=== PATIENT | male | born 1935 | race Caucasian/White ===

== ENCOUNTER → 2016-07-05 | Outpatient (CLI) | payer OTHER | LOC: FIMAGING 16:41 | PROVIDERS: ATTEND Family Medicine | DX: M89.8X0 Other specified disorders of bone, multiple sites (principal); M16.0 Bilateral primary osteoarthritis of hip; Z85.528 Personal history of other malignant neoplasm of kidney ==

== ENCOUNTER 2016-07-22 10:02 | Observation (INO) | payer OTHER ==
[~2016-07-22 10:02] MED LIST: NS 1,000 ML IV SCH
[2016-07-22 14:50] LABS: HEMATOCRIT 34.4 % (40.0-51.0); HEMOGLOBIN 11.3 g/dL (13.7-17.5)
[2016-07-22] MEDS ORDERED: MIDAZOLAM 2 MG/2 ML VIAL ONE (15:53)
[2016-07-22] MEDS ORDERED: fentaNYL 100 MCG/2 ML INJ ONE (15:53)
[2016-07-22 16:26] LABS: ABSOLUTE IMMATURE GRANULOCYTES 0.18 10^3/uL (0.00-0.10); ADD DIFF? NO; ADD MORPH? NO; ADD SCAN? NO; ATYPICAL LYMPHOCYTE FLAG 0 (0-99); FRAGMENT RBC FLAG 0 (0-99); HEMOGLOBIN 10.9 g/dL (13.7-17.5); LEFT SHIFT FLG 20 (0-99); LIPEMIA HEMOLYSIS FLAG 80 (0-99); MEAN CELL HEMOGLOBIN 31.1 pg (27.9-34.1); PLATELET CLUMPS FLAG 0 (0-99); PLATELET COUNT 203 10^3/uL (150-400); RED BLOOD CELL COUNT 3.51 10^6/uL (4.40-6.38); RED CELL DISTRIBUTION WIDTH 15.5 % (11.5-15.2)
[2016-07-22] MEDS ORDERED: THROMBIN (BOVINE) 5,000 UNIT VIAL TP ONE (16:30)
[2016-07-22 16:31] LABS: CREATININE 1.6 mg/dL (0.7-1.3)
--- NOTE | 2016-07-22 17:25 | GCON ---
[f rep st] CONSULTATION DATE OF CONSULTATION: 07/22/2016 REFERRING PHYSICIAN: Rae Murray MD REASON FOR EVALUATION: Postprocedural hematoma. HISTORY OF PRESENT ILLNESS: 81-year-old male with a significant history for metastatic renal cell carcinoma. He underwent a prior left nephrectomy, as well as left lower lobe wedge biopsy. He was admitted today with a suspect left lower quadrant soft tissue mass. Percutaneous core imaging was completed. His postprocedural course was complicated by a superficial arterial bleed. Attempted percutaneous transcatheter embolization was subsequently performed. Surgery has been requested for further treatment recommendations. At the present time, the patient is a completely comfortable. He reports no further pain when moving his left leg. He denies abdominal pain, nausea, or vomiting. He has not suffered from prior bleeding sequelae. PAST MEDICAL HISTORY: Metastatic renal cell carcinoma. Head and neck squamous cell carcinoma. Hypertension. Hyperlipidemia. PAST SURGICAL HISTORY: Left nephrectomy, inguinal herniorrhaphy, left lower lobe wedge biopsy. MEDICATIONS: Allopurinol, aspirin, Centrum, Claritin, lisinopril, simvastatin. ALLERGIES: Niacin and sulfa. SOCIAL HISTORY: No significant alcohol or tobacco. He is a . PHYSICAL EXAMINATION: VITAL SIGNS: Temperature 36.4, blood pressure 140/80, pulse 65, respirations 22. GENERAL: The patient is currently alert, appropriate, comfortable. HEENT: Anicteric. NECK: No cervical lymphadenopathy. HEART: Regular. LUNGS: Clear. ABDOMEN: Soft. Reducible lower midline ventral hernia without tenderness overlying a vertical laparotomy incision. Firm left lower quadrant hematoma with normal overlying skin. Minimal tenderness. EXTREMITIES: FemoStop currently in place, left leg, with normal range of motion. No exacerbation of pain with movement at present time. Otherwise unremarkable. NEUROLOGIC: Unremarkable. REVIEW OF SYSTEMS: 10-point review of systems unremarkable. LABORATORY DATA: Initial hemoglobin 11.3, subsequent hemoglobin 10.9. White count 9.2, platelets 200. Electrolytes within reference range. Creatinine 1.6. CT imaging reviewed on PACS: Left lower quadrant superficial hematoma present with a superficial blush noted. IMPRESSION: Post biopsy hematoma, left lower quadrant. RECOMMENDATIONS: Continued supportive care measure with direct compression. I suspect his bleeding will spontaneously tamponade and not require further intervention. If the patient has ongoing pain or evidence of ongoing bleeding, surgical exploration with decompression or ligation can be entertained at that time. These findings and recommendations were discussed with the patient, as well as Dr. Murray. We will continued to follow with you. /[id number]/MODL MTDD
[2016-07-22] MEDS ORDERED: ACETAMINOPHEN 325 MG TAB PO PRN (18:59)
[2016-07-22 19:50] LABS: HEMOGLOBIN 10.7 g/dL (13.7-17.5)
[2016-07-22] MEDS: NS 1,000 ML IV SCH (20:47)
[2016-07-23] MEDS: NS 1,000 ML IV SCH (02:00)
[2016-07-23 04:48] LABS: % IMMATURE GRANULYOCYTES 1.6 % (0.0-1.1); ABSOLUTE IMMATURE GRANULOCYTES 0.16 10^3/uL (0.00-0.10); ADD DIFF? NO; ADD MORPH? NO; ADD SCAN? NO; ATYPICAL LYMPHOCYTE FLAG 0 (0-99); FRAGMENT RBC FLAG 10 (0-99); HEMOGLOBIN 9.5 g/dL (13.7-17.5); LEFT SHIFT FLG 30 (0-99); LIPEMIA HEMOLYSIS FLAG 80 (0-99); MEAN CELL HEMOGLOBIN 30.9 pg (27.9-34.1); MEAN CELL HEMOGLOBIN CONCENTR. 32.8 g/dL (32.4-36.7); MEAN CELL VOLUME 94.5 fL (81.5-99.8); PLATELET CLUMPS FLAG 0 (0-99); PLATELET COUNT 175 10^3/uL (150-400); RED BLOOD CELL COUNT 3.07 10^6/uL (4.40-6.38); RED CELL DISTRIBUTION WIDTH 15.7 % (11.5-15.2)
[2016-07-23 05:16] LABS: ANION GAP 10 mEq/L (8-16); CALCIUM 8.8 mg/dL (8.5-10.4); CARBON DIOXIDE 19 mEq/l (22-31); CHLORIDE 108 mEq/L (97-110); CREATININE 1.6 mg/dL (0.7-1.3); GLOMERULAR FILTRATION RATE 42; GLUCOSE 119 mg/dL (70-100); POTASSIUM 4.8 mEq/L (3.5-5.2); SODIUM 137 mEq/L (134-144)
--- NOTE | 2016-07-23 08:20 | SOAPPROG ---
SOAP Progress Note Assessment/Plan: Assessment/Plan: Hemodynamically stable No evidence of further bleeding H/H stable RRR CTA Abd soft NT Minimal ecchymosis Distal pulses intact Fem stop released (left in spot in case of need for reapplication) 07/23/16 08:18 Objective: Vital Signs Temp Pulse Resp BP Pulse Ox 36.1 C 62 17 136/65 H 96 07/23/16 08:00 07/23/16 08:00 07/23/16 08:00 07/23/16 08:00 07/23/16 08:00 Laboratory Results 07/23/16 04:35 07/23/16 04:35 07/22/16 07/23/16 07/24/16 05:59 05:59 05:59 Intake Total 1413 Output Total 800 Balance 613 ICD10 Worksheet Patient Problems: Problems Problem Status Onset Dehydration Acute
[2016-07-23] MEDS ORDERED: GADOBUTROL 10 ML VIAL IVP ONE (09:40)
[2016-07-23 11:56] LABS: HEMATOCRIT 31.3 % (40.0-51.0); HEMOGLOBIN 10.6 g/dL (13.7-17.5)
[2016-07-23 12:24] VITALS: BP 103/56; PULSE 83; RESP 20; TEMP 97.9; O2SAT 97
[2016-07-23 12:29] LABS: CREATININE 1.7 mg/dL (0.7-1.3)
--- NOTE | 2016-07-23 13:18 | SOAPPROG ---
SOAP Progress Note Assessment/Plan: Assessment: Bleeding off of ascending lateral cutaneous femoral branch, now stopped after thrombin injection. Plan: Will keep femstop on for overnight. Anticipate D/C tomorrow 07/23/16 13:17 Subjective: Feels much better after thrombin injection. "I don't feel the pressure anymore. " Daughter at bedside. Objective: Vital Signs Temp Pulse Resp BP Pulse Ox 36.6 C 83 20 103/56 L 97 07/23/16 12:00 07/23/16 12:00 07/23/16 12:00 07/23/16 12:00 07/23/16 12:00 Laboratory Results 07/23/16 11:52 07/23/16 11:50 07/22/16 07/23/16 07/24/16 05:59 05:59 05:59 Intake Total 1413 Output Total 800 Balance 613 LT abd much softer. Femstop on. ICD10 Worksheet Patient Problems: Problems Problem Status Onset Dehydration Acute
--- NOTE | 2016-07-23 13:20 | SOAPPROG ---
SOAP Progress Note Assessment/Plan: Assessment: Bleeding off of ascending lateral cutaneous femoral branch, now stopped after thrombin injection. Plan: Will keep femstop on for overnight. Anticipate D/C tomorrow 07/23/16 13:17 07/23/16 13:19 D/C this pm. 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 Follow up with Dr. Sierra as planned. Appreciate Drs. Abdi and Steven's consult and care of this patient. Subjective: No events over night. Femstop has been off since Am. Has been OOB, to bathroom , tolerating PO. Ambulated. Objective: Vital Signs Temp Pulse Resp BP Pulse Ox 36.6 C 83 20 103/56 L 97 07/23/16 12:00 07/23/16 12:00 07/23/16 12:00 07/23/16 12:00 07/23/16 12:00 Laboratory Results 07/23/16 11:52 07/23/16 11:50 07/22/16 07/23/16 07/24/16 05:59 05:59 05:59 Intake Total 1413 Output Total 800 Balance 613 Mass stable. Hct stable. Cr stable. - Pending Discharge Pending Discharge Within 24 Hours: Yes Pending Discharge Date: 07/24/16 Pending Discharge Time: 11:00 ICD10 Worksheet Patient Problems: Problems Problem Status Onset Dehydration Acute
[2016-07-23] MEDS ORDERED: HYDROCODONE/APAP 5/325 TAB PO PRN (13:22)
[2016-07-23] MEDS ORDERED: FINASTERIDE 5 MG TAB PO SCH (18:00)
[2016-07-23] MEDS ORDERED: ALLOPURINOL 100 MG TAB PO SCH (18:00)
[2016-07-23] MEDS ORDERED: NON-FORMULARY NEW DRUG (Simvastatin [Zocor] 20 MG) PO SCH (18:00)
[2016-07-23] MEDS ORDERED: ATORVASTATIN CALCIUM 10 MG TAB PO SCH (18:00)
[2016-07-24] MEDS ORDERED: ASPIRIN EC 81 MG TAB PO SCH (09:00)
[2016-07-24] MEDS ORDERED: LISINOPRIL 5 MG TAB PO SCH (09:00)
== END 2016-07-23 14:00 | disposition home or self-care (01) ==
LOC: FIMAGING 10:02 → F3E 15:28 → F2N 16:04
PROVIDERS: ADMIT Radiology Diagnostic Radiology; ATTEND Radiology Diagnostic Radiology
PROC: 0WBH3ZX Excision of Retroperitoneum, Percutaneous Approach, Diagnostic (ICD-10-PCS; principal; 2016-07-22 13:10)
PROC: 3E03317 Introduction of Other Thrombolytic into Peripheral Vein, Percutaneous Approach (ICD-10-PCS; principal; 2016-07-22 13:10)
PROC: 04LL3ZZ Occlusion of Left Femoral Artery, Percutaneous Approach (ICD-10-PCS; principal; 2016-07-22 13:10)
DX: C79.51 Secondary malignant neoplasm of bone (principal); C78.00 Secondary malignant neoplasm of unspecified lung; K91.871 Postprocedural hematoma of a digestive system organ or structure following other procedure; T81.719A Complication of unspecified artery following a procedure, not elsewhere classified, initial encounter; I10 Essential (primary) hypertension; E78.5 Hyperlipidemia, unspecified; Z85.528 Personal history of other malignant neoplasm of kidney
CPT/HCPCS: 36002; 37243; 49180; 70553; 74174; 76936; 76942; 77012; 88161; 88307; 88341; 88342; 99152; A9585; C1769; G0378; J2250; J3010; Q9967

== ENCOUNTER → 2016-08-25 | Outpatient (CLI) | payer OTHER | LOC: FIMAGING 10:47 | PROVIDERS: ATTEND Nurse Practitioner | DX: C79.51 Secondary malignant neoplasm of bone (principal); M16.12 Unilateral primary osteoarthritis, left hip; M25.552 Pain in left hip; Z85.528 Personal history of other malignant neoplasm of kidney ==

== ENCOUNTER 2016-10-18 10:15 | Inpatient (IN) | payer OTHER ==
--- NOTE | 2016-10-18 10:44 | CPEKG ---
Heart Rate: 87 RR Interval: 690 P-R Interval: 172 QRSD Interval: 100 QT Interval: 360 QTC Interval: 433 P Gresh[place]: 38 QRS [place]: -44 T Wave [place]: 17 EKG Severity - ABNORMAL ECG - EKG Impression: SINUS RHYTHM EKG Impression: LEFT ANTERIOR FASCICULAR BLOCK EKG Impression: LVH WITH SECONDARY REPOLARIZATION ABNORMALITY Electronically Signed By: Anai Harry 18-Oct-2016 17:07:00
--- NOTE | 2016-10-18 10:46 | EDPHY ---
H & P Stated Complaint: CONCERNED ABOUT PE/PNA Source: Patient, Family, RN/MD Exam Limitations: No limitations - Personal History Current Tetanus/Diphtheria Vaccine: Yes Tetanus Vaccine Date: 2013 - Medical/Surgical History Hx Asthma: No Hx Chronic Respiratory Disease: No Hx Diabetes: No Hx Cardiac Disease: Yes Hx Renal Disease: Yes Hx Cirrhosis: No Hx Alcoholism: No Hx HIV/AIDS: No Hx Splenectomy or Spleen Trauma: No Other PMH: Gout, high cholesterol, HTN, Oral Ca with surgery 1998, leg fx 1998, hernia repair 1992, deviated septum, clear cell renal CA 2013, L nephrectomy, 2013 - Social History Smoking Status: Former smoker HPI/ROS: CHIEF COMPLAINT: Left-sided chest and back pain HISTORY OF PRESENT ILLNESS: Patient complains of left-sided chest and back pain that started abruptly last night. Moderate to severe pain. No position of comfort. Worse with inspiration, palpation movement. No fever or chills. Occasional cough. No nausea or vomiting. No diarrhea. No constipation. History of metastatic renal carcinoma with involvement of the left lung, bowel. Patient was at his oncologist's office today and there is concern for the possibility of pneumonia or PE. Thus he was sent our facility. I did discuss this with his oncologist. REVIEW OF SYSTEMS: Ten systems reviewed and are negative unless otherwise noted in the HPI PAST MEDICAL HISTORY: As reviewed. Pertinent include renal cell carcinoma with metastases, left nephrectomy SOCIAL HISTORY: Nonsmoker. Lives here in [place] FAMILY HISTORY: Noncontributory EXAMINATION General Appearance: Alert, no distress Head: normocephalic, atraumatic Eyes: Pupils equal and round, no conjunctival pallor or injection ENT, Mouth: Mucous membranes moist Neck: Normal inspection, supple, non-tender Respiratory: Lungs are clear to auscultation. No wheeze, rhonchi or crackles Cardiovascular: Regular rate and rhythm. No murmur Gastrointestinal: Abdomen is soft and nontender Back: non-tender, no bony abnormalities Neurological: A&O, nonfocal, normal gait Skin: Warm and dry, no rash Extremities: Nontender, no pedal edema Psychiatric: Mood and affect normal DIFFERENTIAL DIAGNOSES: Including but not limited to pneumonia, PE, pleurisy, costochondritis, pericarditis, pneumonitis, enteritis, colitis, pancreatitis MDM: 10:25 a.m. Left lower chest pain that is pleuritic. This is on the costal margin. No abdominal complaints at this time. Complicating factors include metastatic renal carcinoma with involvement of the lung. He also has a solitary kidney due to nephrectomy. Vital signs are stable. Chest x-ray is pending. Laboratory studies have been ordered. EKG pending. He is in no acute distress 11:00 a.m. Laboratories thus far are negative for any acute abnormalities. He remains awake and alert. Still does have left-sided chest pain. 11:45 a.m. Laboratory studies are within normal limits for the patient. Negative troponin. Chest x-ray does not reveal any pneumonia. He does not have any fever or cough or evidence of infection. I have re-evaluated the patient. I discussed the case with Dr. Gibson, and the patient will be admitted to the hospital to Dr. Horn. He is admitted in stable condition SUPERVISION: Patient was evaluated in conjunction with the supervising physician. Please see their note for details. (Christofer Blake) Constitutional: Initial Vital Signs Temperature (C) 37.0 C 10/18/16 10:23 Heart Rate 104 H 10/18/16 10:23 Respiratory Rate 16 10/18/16 10:23 Blood Pressure 136/81 H 10/18/16 10:23 O2 Sat (%) 94 10/18/16 10:23 O2 Delivery Mode Room Air Allergies/Adverse Reactions: niacin [Niacin] Allergy (Intermediate, Verified 07/22/16 10:35) Rash NSAIDS (Non-Steroidal Anti-Inflamma Allergy (Intermediate, Verified 07/22/16 10: 35) Rash Sulfa (Sulfonamide Antibiotics) Allergy (Intermediate, Verified 07/22/16 10:35) Rash Home Medications: Medication Instructions Recorded Allopurinol [Allopurinol 100 MG 100 mg PO BID@07/22/16 (*)] Ascorbic Acid [Vitamin C 500 mg 500 mg PO DAILY@1200 07/22/16 (*)] Aspirin EC [Aspirin EC 81 mg (*)] 81 mg PO DAILY 07/22/16 Finasteride [Proscar 5 MG (*)] 5 mg PO HS 07/22/16 Fluticasone Nasal [Flonase Nasal 1 sprays NASAL BID PRN 07/22/16 [place]] Herbals/Supplements -Info Only 1 ea PO DAILY 07/22/16 Loratadine [Claritin 10 mg] 10 mg PO DAILY@1200 07/22/16 Multivitamins [Multivitamin (*)] 1 each PO DAILY 07/22/16 Cholecalciferol Vit D3 [Vitamin D3 2,000 units PO DAILY 10/18/16 2000 units tab (OTC)] Lisinopril [Zestril 10 mg (*)] 10 mg PO DAILY 10/18/16 Hydrocodone/Acetaminophen [[place]et[place] 0.5 - 1 each PO Q4 PRN #40 tablet 10/20/16 5/325 (*)] Lidocaine 5% [Lidoderm 5% Patch 1 ea TD DAILY #30 patch 10/20/16 (*)] Patch Removal 1 ea TD DAILY21 patch 10/20/16 Polyethylene Glycol 3350 [Miralax 17 gm PO DAILY #30 dose 10/20/16 17 gm (*)] Sennosides/Docusate Sodium 1 - 2 tab PO BID #60 tab 10/20/16 [Senokot-S] Medical Decision Making - Diagnostics EKG Interpretation: 12 lead EKG is interpreted in Trace master View by emergency department physician. (Anai Harry) ED Course/Re-evaluation: The patient was evaluated and managed by the physician nursing home assistant. I discussed the care of this patient while the patient was in the emergency department. I reviewed imaging studies and blood work. I read the EKG. I have reviewed this chart and I agree with the findings and plan of care as documented, as indicated by my signature. I am the secondary supervising physician. This patient presents with rapid heart rate and shortness of breath. He has a history of renal cell carcinoma and was found to have an elevated D-dimer in the emergency department. Because of his acute on chronic kidney disease, CT angiogram of the chest not advised. He is being scheduled for admission and ventilation perfusion scan. He is at high risk for pulmonary embolus. (Anai Harry) - Data Points Laboratory Results: Laboratory Results 10/19/16 04:18 10/19/16 04:18 Medications Given: Acetaminophen (Tylenol) 650 mg PO Q6 PRN PRN Reason: Pain, Mild/Fever, Can Take PO Stop: 04/16/17 13:46 Last Admin: 10/18/16 14:44 Dose: 650 mg Hydrocodone Bitart/Acetaminophen ([place] 5/325) 1 tab PO Q4 PRN PRN Reason: Pain, Breakthrough Stop: 10/28/16 13:46 Last Admin: 10/20/16 10:24 Dose: 1 tab Allopurinol (Allopurinol) 100 mg PO BID@12,21 [facility] Stop: 04/16/17 20:59 Last Admin: 10/19/16 19:51 Dose: 100 mg Amlodipine Besylate (Norvasc) 2.5 mg PO DAILY [facility] Stop: 04/16/17 13:59 Last Admin: 10/20/16 10:10 Dose: 2.5 mg Ascorbic Acid (Vitamin C) 500 mg PO DAILY@1200 [facility] Stop: 04/17/17 11:59 Last Admin: 10/19/16 12:14 Dose: 500 mg Aspirin Buffered (Aspirin Ec) 81 mg PO DAILY [facility] Stop: 04/17/17 08:59 Last Admin: 10/20/16 10:10 Dose: 81 mg Cetirizine HCl (Zyrtec) 10 mg PO DAILY@1200 [facility] Stop: 04/17/17 11:59 Last Admin: 10/19/16 12:14 Dose: 10 mg Cholecalciferol (Vitamin D) 2,000 units PO DAILY [facility] Stop: 04/17/17 08:59 Last Admin: 10/20/16 10:08 Dose: 2,000 units Enoxaparin Sodium (Lovenox) 40 mg SC DAILY [facility] Stop: 04/17/17 08:59 Last Admin: 10/20/16 10:17 Dose: 40 mg Finasteride (Proscar) 5 mg PO HS [facility] Stop: 04/16/17 20:59 Last Admin: 10/19/16 19:51 Dose: 5 mg Sodium Chloride (Ns) 1,000 mls @ 100 mls/hr IV CONT [facility] Stop: 04/17/17 08:29 Last Admin: 10/20/16 04:53 Dose: 1,000 mls Lactulose (Cephulac) 20 gm PO TID PRN; Protocol PRN Reason: Constipation Stop: 04/16/17 13:47 Last Admin: 10/19/16 12:47 Dose: 20 gm Lidocaine/Diphenhydramine/Alumin/Mg (Maalox/Diphenhydramine/Lido) 5 ml PO PRN PRN PRN Reason: Mucositis, Mouth Pain Stop: 04/17/17 15:19 Last Admin: 10/20/16 09:09 Dose: 5 ml Lisinopril (Zestril) 10 mg PO DAILY [facility] Stop: 04/17/17 08:59 Last Admin: 10/20/16 10:09 Dose: 10 mg Multivitamins (Tab-A-Juancarlos) 1 each PO DAILY [facility] Stop: 04/17/17 08:59 Last Admin: 10/20/16 10:08 Dose: 1 each Polyethylene Glycol (Miralax) 17 gm PO DAILY PRN; Protocol PRN Reason: Constipation, patient prefers Stop: 04/16/17 13:47 Last Admin: 10/18/16 17:22 Dose: 17 gm Senna/Docusate Sodium (Senokot-S) 1 - 2 tab PO BID LISA PRN Reason: Protocol Stop: 04/16/17 20:59 Last Admin: 10/20/16 10:07 Dose: 2 tab Discontinued Medications Bisacodyl (Bisacodyl) 5 mg PO ONCE ONE Stop: 10/19/16 08:27 Last Admin: 10/19/16 08:50 Dose: 5 mg Potassium Chloride/Dextrose/Sod Cl (D5w 1/2 Ns W/ 20 Kcl/L) 1,000 mls @ 75 mls/ hr IV CONT LISA Stop: 04/16/17 13:59 Last Admin: 10/18/16 14:25 Dose: 1,000 mls Magnesium Citrate (Magnesium Citrate) 300 ml PO ONCE ONE Stop: 10/19/16 08:26 Last Admin: 10/19/16 08:49 Dose: Not Given Polyethylene Glycol (Miralax) 17 gm PO ONCE ONE Stop: 10/19/16 08:27 Last Admin: 10/19/16 08:50 Dose: 17 gm Departure - Departure Disposition: [facility] Inpatient Acute Clinical Impression: Chest pain Qualifiers: Chest pain type: unspecified Qualified Code(s): R07.9 - Chest pain, unspecified Renal cell carcinoma Qualifiers: Laterality: left Qualified Code(s): C64.2 - Malignant neoplasm of left kidney, except renal pelvis Condition: Good
[2016-10-18 10:56] LABS: % IMMATURE GRANULYOCYTES 1.8 % (0.0-1.1); ABSOLUTE IMMATURE GRANULOCYTES 0.16 10^3/uL (0.00-0.10); ABSOLUTE NRBC COUNT 0.04 10^3/uL (0-0.01); ADD DIFF? NO; ADD MORPH? YES; ADD SCAN? NO; ATYPICAL LYMPHOCYTE FLAG 0 (0-99); FRAGMENT RBC FLAG 10 (0-99); HEMATOCRIT 35.5 % (40.0-51.0); HEMOGLOBIN 11.9 g/dL (13.7-17.5); LEFT SHIFT FLG 30 (0-99); LIPEMIA HEMOLYSIS FLAG 80 (0-99); MEAN CELL HEMOGLOBIN 34.5 pg (27.9-34.1); MEAN CELL HEMOGLOBIN CONCENTR. 33.5 g/dL (32.4-36.7); MEAN CELL VOLUME 102.9 fL (81.5-99.8); MEAN PLATELET VOLUME 11.2 fL (8.7-11.7); NRBC-AUTO% 0.4 % (0.0-0.2); PLATELET CLUMPS FLAG 10 (0-99); PLATELET COUNT 193 10^3/uL (150-400); RED BLOOD CELL COUNT 3.45 10^6/uL (4.40-6.38)
[2016-10-18 10:57] LABS: RED CELL DISTRIBUTION WIDTH 20.9 % (11.5-15.2)
[2016-10-18 11:03] LABS: INR 1.04 (0.83-1.16); PROTIME(PATIENT) 13.5 SEC (12.0-15.0)
[2016-10-18 11:04] LABS: APTT 31.7 SEC (23.0-38.0)
[2016-10-18 11:05] LABS: ANION GAP 15 mEq/L (8-16); CALCIUM 10.3 mg/dL (8.5-10.4); CARBON DIOXIDE 25 mEq/l (22-31); CHLORIDE 97 mEq/L (97-110); CREATININE 1.3 mg/dL (0.7-1.3); GLOMERULAR FILTRATION RATE 53; GLUCOSE 112 mg/dL (70-100); POTASSIUM 4.3 mEq/L (3.5-5.2); SODIUM 137 mEq/L (134-144)
[2016-10-18 11:17] LABS: TROPONIN I 0.021 ng/mL (0-0.034)
[2016-10-18 11:27] LABS: ELLIPTOCYTES 1+; MACROCYTES 1+; PLATELET ESTIMATE ADEQUATE (ADEQ); POLYCHROMASIA 1+
[2016-10-18] MEDS ORDERED: ONDANSETRON 4 MG/2 ML VIAL IVP PRN (13:47)
[2016-10-18] MEDS ORDERED: ACETAMINOPHEN 325 MG TAB PO PRN (13:47)
[2016-10-18] MEDS ORDERED: FLUTICASONE NASAL 120 SPRAYS/16 GM MDI EACHNARE PRN (13:47)
[2016-10-18] MEDS ORDERED: PROMETHAZINE HCL 25 MG/ML INJ IVP PRN (13:47)
[2016-10-18] MEDS ORDERED: BISACODYL 10 MG SUPP PR PRN (13:48)
[2016-10-18] MEDS ORDERED: MAGNESIUM HYDROXIDE 30 ML UDCUP PO PRN (13:48)
[2016-10-18] MEDS ORDERED: LACTULOSE 20 GM/30 ML UDCUP PO PRN (13:48)
[2016-10-18] MEDS ORDERED: POLYETHYLENE GLYCOL 3350 17 GM PKT PO PRN (13:48)
[2016-10-18] MEDS ORDERED: D5W 1/2 NS W/ 20 KCl/L 1,000 ML IV SCH (14:00)
--- NOTE | 2016-10-18 14:41 | GHP ---
[f rep st] HISTORY AND PHYSICAL DATE OF ADMISSION: 10/18/2016 CHIEF COMPLAINT: Abdominal pain. HISTORY OF PRESENT ILLNESS: This is an 81-year-old male currently undergoing treatment for renal ce ll carcinoma with metastases to lung and right ilium, who was referred to the emergency department f [facility] due to concerns for a pulmonary embolism. The patient states he has been constipated the past few days. His last small bowel movement was 2 d ays ago. He did, however, have a small, loose stool today. He has not been passing gas. Last nigh t, he described an 8/10 sharp pain in his left abdomen. The pains were worse with movement or with lying on his side. He is not passing gas. He denies any pleuritic chest pain or chest pain. He de nies any shortness of breath. His appetite has been poor. PAST MEDICAL HISTORY: Renal cell carcinoma diagnosed in 2013 with mets to his lung and ilium. Left nephrectomy in 2013. Partial lung resection in 2014. Squamous cell carcinoma of the mouth. Hyper tension. Seasonal allergies. HOME MEDICATIONS: Reviewed, refer to [employer] for details. ALLERGIES: Niacin, NSAIDs and sulfa. SOCIAL HISTORY: Former smoker. He denies any alcohol or illicit drug use. FAMILY HISTORY: Reviewed and noncontributory. REVIEW OF SYSTEMS: Comprehensive 10-point review of systems was done and is negative, except for as mentioned in the HPI. PHYSICAL EXAM: VITAL SIGNS: Blood pressure 164/104, pulse 103, respiratory rate 18, O2 saturation 93% on room air. Temperature afebrile. GENERAL: No acute distress. HEAD: Normocephalic, atrauma tic. EYES: PERRLA. Sclerae anicteric. MOUTH: Moist mucous membranes. NECK: Supple. No lympha denopathy. CARDIOVASCULAR: S1, S2. No JVD. No lower extremity edema. PULMONARY: Lungs are mary r. No wheezes, rales, or rhonchi. Normal respiratory effort. ABDOMEN: Soft. There is some tende rness to deep palpation in the left upper quadrant without guarding or rebound tenderness. Bowel so unds are diminished. EXTREMITIES: No clubbing or cyanosis. NEURO: Cranial nerves 2-12 grossly in tact. No focal motor or sensory deficits. SKIN: Clear. No rashes. DIAGNOSTICS: WBC is 8.9, hemoglobin 11.9, hematocrit 35.5, platelets 193. INR was 1.04. Sodium 137 , potassium 4.3, chloride 97, CO2 25, BUN 28, creatinine 1.3, glucose 112. Troponin was negative at 0.021. Chest x-ray, which I visualized and personally interpreted, shows bilateral lower lobe scarring with no obvious pneumonia. EKG, which I visualized and personally interpreted, shows sinus rhythm, rate 87 beats per minute, high voltages consistent with LVH. ASSESSMENT AND PLAN: This is an 81-year-old male with history of metastatic renal cell carcinoma, u ndergoing treatment, presenting with: 1. Abdominal pain. It is worse with movement and associated with constipation and lack of flatus. Differential diagnosis: The patient was sent over out of concerns for pulmonary embolism, which I t hink is in the differential but is less likely the cause of his symptoms. For now, we will order a D-dimer. If the D-dimer is positive and his pain persists, we will consider V/Q scan in the morning or possibly CTA; however, the patient is fairly reluctant given his history of 1 functioning kidney . PLAN: We will monitor for signs of hypoxemia or circulatory collapse. We will start empiric treatm ent for pulmonary embolism, if this occurs. For now, we will order a KUB to evaluate for obstructio n. We will also trial an enema to see if this helps with his abdominal pain. 1. History of hypertension that appears to be poorly controlled, given his elevated blood pressure right now, as well as left ventricular hypertrophy on EKG. PLAN: We will continue home dose of lisinopril and add 2.5 mg of Norvasc starting now. 1. History of renal cell carcinoma. PLAN: We will consult Oncology so they know their patient is in the hospital. 1. Elevated BUN. Possibly due to dehydration. PLAN: Start maintenance IV fluids and monitor with repeat metabolic panel in the morning. CODE STATUS: The patient requests to be full code status. /[id number]/MODL
[2016-10-18 16:24] LABS: COLOR YELLOW; LEUKOCYTE ESTERASE,URINE NEGATIVE (NEGATIVE); NITRITE,URINE NEGATIVE (NEGATIVE)
[2016-10-18 16:25] LABS: MUCUS TRACE /lpf (NONE-1+)
[2016-10-18] MEDS: ALLOPURINOL 100 MG TAB PO SCH (19:59)
[2016-10-18] MEDS: FINASTERIDE 5 MG TAB PO SCH (19:59)
[2016-10-18] MEDS: SENNOSIDES/DOCUSATE SODIUM TAB PO SCH (19:59)
[2016-10-19 04:57] LABS: % IMMATURE GRANULYOCYTES 1.1 % (0.0-1.1); ABSOLUTE IMMATURE GRANULOCYTES 0.06 10^3/uL (0.00-0.10); ABSOLUTE NRBC COUNT 0.02 10^3/uL (0-0.01); ADD DIFF? NO; ADD MORPH? YES; ADD SCAN? NO; ATYPICAL LYMPHOCYTE FLAG 0 (0-99); FRAGMENT RBC FLAG 20 (0-99); HEMATOCRIT 29.6 % (40.0-51.0); LEFT SHIFT FLG 20 (0-99); LIPEMIA HEMOLYSIS FLAG 90 (0-99); MEAN CELL HEMOGLOBIN 34.2 pg (27.9-34.1); MEAN CELL HEMOGLOBIN CONCENTR. 33.8 g/dL (32.4-36.7); MEAN CELL VOLUME 101.4 fL (81.5-99.8); MEAN PLATELET VOLUME 11.2 fL (8.7-11.7); NRBC-AUTO% 0.4 % (0.0-0.2); PLATELET CLUMPS FLAG 0 (0-99); PLATELET COUNT 127 10^3/uL (150-400); RED BLOOD CELL COUNT 2.92 10^6/uL (4.40-6.38)
[2016-10-19 05:03] LABS: RED CELL DISTRIBUTION WIDTH 20.9 % (11.5-15.2)
[2016-10-19 05:04] LABS: ANION GAP 10 mEq/L (8-16); CARBON DIOXIDE 21 mEq/l (22-31); CHLORIDE 102 mEq/L (97-110); CREATININE 1.1 mg/dL (0.7-1.3); GLOMERULAR FILTRATION RATE > 60; GLUCOSE 92 mg/dL (70-100); POTASSIUM 4.2 mEq/L (3.5-5.2); SODIUM 133 mEq/L (134-144)
[2016-10-19 05:40] LABS: PLATELET ESTIMATE DECREASED (ADEQ)
[2016-10-19 05:41] LABS: ELLIPTOCYTES 1+; MACROCYTES 1+; MICROCYTES 1+; POLYCHROMASIA 1+
[2016-10-19] MEDS ORDERED: MAGNESIUM CITRATE 300 ML BOTTLE PO ONE (08:25)
[2016-10-19] MEDS ORDERED: BISACODYL 5 MG EC TAB PO PRN (08:26)
[2016-10-19] MEDS ORDERED: BISACODYL 5 MG EC TAB PO ONE (08:26)
[2016-10-19] MEDS ORDERED: POLYETHYLENE GLYCOL 3350 17 GM PKT PO ONE (08:26)
[2016-10-19] MEDS: NS 1,000 ML IV SCH ×2 (08:50→17:43)
[2016-10-19] MEDS ORDERED: Herbals/Supplements -Info Only PO SCH (09:00)
[2016-10-19] MEDS: ASPIRIN EC 81 MG TAB PO SCH (09:58)
[2016-10-19] MEDS: MULTIVITAMINS 1 EACH TAB PO SCH (09:58)
[2016-10-19] MEDS: SENNOSIDES/DOCUSATE SODIUM TAB PO SCH ×2 (09:59→21:09)
[2016-10-19] MEDS: ENOXAPARIN 40 MG/0.4 ML SYR SC SCH (09:59)
[2016-10-19] MEDS: CHOLECALCIFEROL VIT D3 2,000 UNITS TAB/CAP PO SCH (09:59)
[2016-10-19] MEDS: LISINOPRIL 10 MG TAB PO SCH (10:00)
[2016-10-19] MEDS ORDERED: NON-FORMULARY NEW DRUG (Loratadine [Claritin 10 Mg] 10 MG) PO SCH (12:00)
[2016-10-19] MEDS: CETIRIZINE 10 MG TAB PO SCH (12:14)
[2016-10-19] MEDS: ASCORBIC ACID 500 MG TAB PO SCH (12:14)
[2016-10-19] MEDS: ALLOPURINOL 100 MG TAB PO SCH ×2 (12:15→19:51)
--- NOTE | 2016-10-19 13:46 | GCON ---
[f rep st] CONSULTATION INITIAL VISIT. PRIMARY ONCOLOGIST: Dr. Toño Sierra. REASON FOR REQUEST: Metastatic renal cell carcinoma. HISTORY OF PRESENT ILLNESS: Mr. 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 I believe it locally recurred in March 2014, which was resected and then received adjuvant radiation, which was complicated with osteonecrosis of the maxilla and xerostomia. He was initially diagnosed as stage I renal cell carcinoma in June 2013, treated with nephrectomy. He developed a 1.2 cm left lower lobe pulmonary recurrence which was resected, and then earlier this year he developed a new left ilium bone metastasis. In approximately July he was started on pazopanib, but he has had difficulty tolerating the drug requiring multiple dose reductions. Dr. Sierra has decided to stop pazopanib because he is not tolerating it and switch him to nivolumab, which he has not started yet. He was in the office yesterday for followup and was having pain in the left side , lower chest upper abdomen region. He was having some dyspnea with exertion and feeling tachycardic. He denied any shortness of breath at rest nor any acute lower extremity swelling. Along with that he has just had generalized fatigue and not feeling well. He has been a little bit more lethargic and actually needed to take pain medications, which he hardly ever does. He has also had a lot of problems with constipation recently. He is a little more comfortable now, not having any significant pain at rest. He received an enema last night. That helped with some of the gas pain but not much stool. He is now taking some oral cathartics to help move his bowels. ALLERGIES: NSAIDs, niacin and sulfa. HOME MEDICATIONS: Include vitamin D, allopurinol, [place], herbal supplements, fluticasone, finasteride, aspirin, ascorbic acid, multivitamins, loratadine and lisinopril. PAST MEDICAL HISTORY: 1. Chronic illnesses include renal cell carcinoma as described in the HPI. 2. Floor mouth cancer as described in HPI. 3. Hypertension. 4. Seasonal allergies. PAST SURGICAL HISTORY: 1. Left nephrectomy. 2. Metastatic lung lesion removal. 3. Head and neck cancer surgery. SOCIAL HISTORY: He is a former smoker. Denies alcohol use. Is retired. FAMILY HISTORY: Noncontributory. REVIEW OF SYSTEMS: A 10-point review of systems performed, pertinent positives as per HPI, otherwise negative. PHYSICAL EXAM: VITAL SIGNS: Temperature is 36.4, pulse is 86, blood pressure 112/77. GENERAL: He is an elderly man in good spirits, in no distress. His daughter is in the room with him. HEENT: Shows some missing teeth, but otherwise unremarkable. LUNGS: Appear clear today. CARDIAC: Regular. ABDOMEN: Soft. There is tenderness right over the left lower ribs but none in the left upper quadrant. EXTREMITIES: No edema. NEUROLOGIC: Grossly intact. LAB DATA: Mildly anemic at 10 g/dL, platelet count 127,000, white count is unremarkable. D-dimer is elevated at 1.12. Chemistries, creatinine was up 1.3 yesterday, 1.1 today. UA was unremarkable. Chest x-ray showed some bilateral lower lobe parenchymal scarring, but otherwise stable. EKG showed left anterior fascicular block. Abdominal x-ray showed constipation. V/Q scan performed this morning showed some segmental perfusion defect in the superior segments of the lower lobes bilaterally particularly in the left lower lobe. IMPRESSION: 1. Acute left upper abdomen/left lower chest pain. 2. Metastatic renal cell carcinoma. A little unclear if he had a blood clot. It does sound like the ventilation scan shows segmental perfusion defects. He is definitely a patient who would be at risk with metastatic renal cell carcinoma and his age. If this is felt to be significant then recommend treating him with either Xarelto or apixaban as standard. If unclear, may want to consider getting a CT angiogram. If this is not significant then would make sure that he is adequately moving his bowels and he can go home. Continue Vicodin as needed for pain. Most of the tenderness seemed to be right over the ribs. Arrangements have already been made to switch his therapy to outpatient. We will follow along with you while in the hospital. /[id number]/MODL MTDD
[2016-10-19] MEDS ORDERED: IOPAMIDOL (ISOVUE 370) 100 ML BTL IV ONE (15:16)
[2016-10-19] MEDS ORDERED: MBX SOLN 30 ML BOTTLE PO PRN (15:20)
--- NOTE | 2016-10-19 16:22 | HOSPPROG ---
Hospitalist Progress Note Assessment/Plan: Assessment: 81-year-old male presents with suspected acute pulmonary embolism in the setting of acute kidney injury on chronic kidney disease, renal cell carcinoma Plan: 1. Suspected pulmonary embolism. Acute, new from this provider, further workup indicated. Patient with exertional dyspnea and tachycardia, high risk for pulmonary embolism with underlying renal cell carcinoma, elevated D-dimer, V/Q scan demonstrating perfusion defects in the superior bilateral lower lobes, left greater than right -getting CT angiogram now given abnormal V/Q -continue IV fluids 2. Acute kidney injury on chronic kidney disease stage III. Patient has solitary kidney, acute kidney injury secondary to mild hypovolemia in the setting of cancer treatment -patient has been receiving IV fluids since presentation, creatinine level improving -discussed with Dr. Osvaldo Rogers, he agrees that IV fluids should be continued on this patient given his risk of contrast induced nephropathy in the setting of solitary kidney, continue IV fluids after CT angiogram and repeat serum creatinine level in a.m., as well as an outpatient in 3 days 3. Renal cell carcinoma. Under the care of Dr. Sierra, patient receiving oncology consultation while in the hospital, appreciated -metastatic, will evaluate chest involvement with CT scan 4. Constipation. Acute worsening, resulting in significant abdominal discomfort , which was his presenting symptom, has yet to respond to oral laxatives and suppository -give additional dose of bisacodyl and MiraLax now, if no effect, will use GoLYTELY this afternoon Diet. Regular Prophylaxis. High risk patient, Lovenox 40 Code. Full Disposition. Upgraded to inpatient admission status, anticipated length stay greater than 2 midnights for reasonable medical necessity including suspected pulmonary embolism require further workup as well as ongoing IV fluids before and after testing to mitigate risk of worsening acute kidney injury in patient with chronic kidney disease stage 3, solitary kidney and renal cell carcinoma. Subjective: Counseled the patient extensively regarding risk of systemic anticoagulation, risk of pulmonary embolism, treatment strategy for constipation Objective: Vital Signs Temp Pulse Resp BP Pulse Ox 36.7 C 86 19 123/77 H 95 10/19/16 15:49 10/19/16 15:49 10/19/16 15:49 10/19/16 15:49 10/19/16 15:49 Laboratory Results 10/19/16 04:18 10/19/16 04:18 10/18/16 10/19/16 10/20/16 05:59 05:59 05:59 Intake Total 1000 250 Output Total 1025 Balance -25 250 PT 13.5 SEC (12.0-15.0) 10/18/16 10:35 INR 1.04 (0.83-1.16) 10/18/16 10:35 - Time Spent With Patient Time Spent with Patient: greater than 35 minutes Time Spent with Patient: Greater than 35 minutes spent on this patients care, greater than 50% of time spent counseling, educating, and coordinating care regarding the above mentioned plan. - Physical Exam Constitutional: no apparent distress, chronically ill appearing, uncomfortable ( Abdominal discomfort) Cardiovascular: regular rate and rhythym, no murmur, rub, or gallop, No edema Respiratory: no respiratory distress, no rales or rhonchi, clear to auscultation Gastrointestinal: normoactive bowel sounds, tenderness (To moderate depth palpation), distension (Mild) Neurologic: AAOx3, sensation intact bilaterally Psychiatric: interacting appropriately, not anxious, not encephalopathic, thought process linear ICD10 Worksheet Patient Problems: Problems Problem Status Onset Dehydration Acute Chest pain Acute Renal cell carcinoma Acute
[2016-10-19] MEDS: FINASTERIDE 5 MG TAB PO SCH (19:51)
[2016-10-20] MEDS: NS 1,000 ML IV SCH (04:53)
[2016-10-20 05:32] LABS: INR 1.16 (0.83-1.16); PROTIME(PATIENT) 14.8 SEC (12.0-15.0)
[2016-10-20 05:40] LABS: ANION GAP 9 mEq/L (8-16); CALCIUM 8.1 mg/dL (8.5-10.4); CARBON DIOXIDE 20 mEq/l (22-31); CHLORIDE 103 mEq/L (97-110); CREATININE 1.2 mg/dL (0.7-1.3); GLOMERULAR FILTRATION RATE 58; GLUCOSE 82 mg/dL (70-100); POTASSIUM 3.8 mEq/L (3.5-5.2); SODIUM 132 mEq/L (134-144)
[2016-10-20] MEDS: HYDROCODONE/APAP 5/325 TAB PO PRN ×2 (05:57→10:24)
[2016-10-20] MEDS ORDERED: oxyCODONE IR 5 MG TAB PO PRN (09:09)
[2016-10-20] MEDS ORDERED: LIDOCAINE 5% 1 EA PATCH TD SCH (09:15)
[2016-10-20 09:32] VITALS: RESP 18
[2016-10-20] MEDS: SENNOSIDES/DOCUSATE SODIUM TAB PO SCH (10:07)
[2016-10-20] MEDS: MULTIVITAMINS 1 EACH TAB PO SCH (10:08)
[2016-10-20] MEDS: CHOLECALCIFEROL VIT D3 2,000 UNITS TAB/CAP PO SCH (10:08)
[2016-10-20] MEDS: LISINOPRIL 10 MG TAB PO SCH (10:09)
[2016-10-20] MEDS: ASPIRIN EC 81 MG TAB PO SCH (10:10)
[2016-10-20] MEDS: ENOXAPARIN 40 MG/0.4 ML SYR SC SCH (10:17)
--- NOTE | 2016-10-20 11:58 | PDIAF ---
- Diagnosis Diagnosis: CKD stage III, renal carcinoma Code Status: Full Code - Medication Management Discharge Medications: Medications to Continue on Transfer Allopurinol [Allopurinol 100 MG (*)] 100 mg PO BID@07/22/16 [Last Taken 21:00] Ascorbic Acid [Vitamin C 500 mg (*)] 500 mg PO DAILY@1200 07/22/16 [Last Taken 10/17/16] Aspirin EC [Aspirin EC 81 mg (*)] 81 mg PO DAILY 07/22/16 [Last Taken 10/18/16] Finasteride [Proscar 5 MG (*)] 5 mg PO HS 07/22/16 [Last Taken 10/17/16] Fluticasone Nasal [Flonase Nasal [place]] 1 sprays NASAL BID PRN 07/22/16 [Last Taken Unknown] Herbals/Supplements -Info Only 1 ea PO DAILY 07/22/16 [Last Taken 07/21/16] Loratadine [Claritin 10 mg] 10 mg PO DAILY@1200 07/22/16 [Last Taken 10/17/16] Multivitamins [Multivitamin (*)] 1 each PO DAILY 07/22/16 [Last Taken 10/18/16] Cholecalciferol Vit D3 [Vitamin D3 2000 units tab (OTC)] 2,000 units PO DAILY [Last Taken 10/18/16] Lisinopril [Zestril 10 mg (*)] 10 mg PO DAILY 10/18/16 [Last Taken 10/17/16] Hydrocodone/Acetaminophen [[place] 5/325 (*)] 0.5 - 1 each PO Q4 PRN #40 tablet [Last Taken Unknown] Lidocaine 5% [Lidoderm 5% Patch (*)] 1 ea TD DAILY #30 patch 10/20/16 [Last Taken Unknown] Patch Removal 1 ea TD DAILY21 patch 10/20/16 [Last Taken Unknown] Polyethylene Glycol 3350 [Miralax 17 gm (*)] 17 gm PO DAILY #30 dose 10/20/16 [ Last Taken Unknown] Sennosides/Docusate Sodium [Senokot-S] 1 - 2 tab PO BID #60 tab 10/20/16 [Last Taken Unknown] Advertising Assistant Antibiotics: NA Discharge Medications: Refer to the Discharge Home Medication list for PRN reason. PICC Care - Routine: N/A - Orders Services needed: Home Care, Registered Nurse, Physical Therapy Home Care Face to Face: I certify that this patient was under my care and that I had the required [id number] encounter meeting the encounter requirements on the discharge day. My findings support the fact that the patient is homebound as defined in CMS Chapter 7 Medicare Benefits Manual 30.1.1, The condition of the patient is such that there exists a normal inability to leave home and consequently, leaving home would require a considerable and taxing effort. Diet Recommendation: no restrictions on diet Diet Texture: Regular Texture Diet, Thin Liquids, Meds Whole in Puree Weigh Patient: weekly Box: Not applicable Activity/Weight Bearing Restrictions: as tolerated - Labs/Radiology CBC Date: 10/24/16 CMP Date: 10/24/16 Call or Fax Lab and Imaging Results to: Dr. Rogers and Dr. Sierra - Follow Up Care Current Providers and Referrals: Gordy Galarza MD [Primary Care Provider] - As per Instructions Toño Sierra MD [Medical Doctor] - follow up in 1 week Osvaldo Rogers MD [Medical Doctor] - follow up in 1 week
--- NOTE | 2016-10-20 12:05 | PDDCSUM ---
Discharge Summary Discharge Summary: DISCHARGE SUMMARY FOLLOW-UP ITEMS: Follow-up complete metabolic profile and CBC next Monday DATE OF ADMISSION: 10/18/2016 DATE OF DISCHARGE: 10/20/2016 DISCHARGE DIAGNOSES: 1. Subacute left rib fracture 2. Acute kidney injury on chronic kidney disease stage 3 3. Renal cell carcinoma with left upper quadrant persistence of disease 4. Acute constipation with obstipation 5. Acute hyponatremia CONSULTATIONS: Hematology Oncology PROCEDURES / IMAGING: Ventilation-perfusion scan indeterminate, CT angiograms demonstrating no evidence of pulmonary embolism, subacute left rib fracture, persistence of left upper quadrant malignancy CHIEF COMPLAINT: Acute abdominal pain SUBJECTIVE: Patient is feeling well at time of discharge, he has moved his bowels, his pain is being well managed PHYSICAL EXAM ON DISCHARGE: Systolic blood pressure is 120, heart rate 80, afebrile overnight, satting well on room air, abdomen is soft, mildly tender to moderate palpation left upper quadrant, left ribs are moderately tender to mild palpation, lungs are clear to auscultation bilaterally LABS ON DISCHARGE: Creatinine 1.2, potassium 3.8, serum sodium 132, bicarb 19 HOSPITAL COURSE BY PROBLEM: 1. Subacute rib fracture. Most likely pathological fracture of the left rib, resulting in left-sided chest pain, Lidoderm patch placed, incentive spirometry , low-dose opiate if needed. 2. Renal cell carcinoma with persistence of left upper quadrant disease. Patient's CT scan demonstrated he has persistence of disease in the left upper quadrant, near the pancreas and spleen, potentially resulting in his intra- abdominal discomfort present on admission. I discussed these results with Dr. Ariela Martin, he reports that the patient's most recent staging CT did demonstrate persistence of disease in a similar location. I will defer to Dr. Sierra as to whether this ulcers patient's present course of malignancy treatment. He has received as needed oxycodone for symptomatic relief. 3. Acute constipation with obstipation. Patient had significant bowel distention with stool present on abdominal x-ray, contributing to his intra- abdominal symptoms. He received aggressive bowel regimen, and finally moved his bowels on the evening of 10/19 after receiving numerous laxatives. I recommend to the patient that he remain on scheduled stool softeners as well as daily laxative at home. 4. Acute kidney injury on chronic kidney disease stage 3. Patient has a solitary kidney and he experienced acute kidney injury most likely secondary to mild hypovolemia in the setting of cancer treatment as well as abdominal symptoms and poor oral intake from conditions outlined above. He requires extended hospitalization for ongoing IV fluid management following a CT angiogram given his high risk of contrast induced nephropathy. This was discussed with his outpatient web press operator assistant. The patient will have repeat creatinine BUN and lytes next Monday with results to his web press operator assistant. 5. Acute hyponatremia. Secondary to initial hypovolemia and then dilutional effect, patient received normal saline, repeat serum sodium level as outpatient. DISCHARGE MEDICATIONS: Please see official discharge medication reconciliation sheet in chart , Lidoderm patch, oxycodone immediate release as needed, Senokot S, MiraLax scheduled. DISCHARGE INSTRUCTIONS: Please follow up with Dr. Rogers and Dr. Sierra next week. TIME SPENT: Greater than 30 minutes were spent on direct patient care, as well as discharge planning and preparation.
[2016-10-20] MEDS: ALLOPURINOL 100 MG TAB PO SCH (12:54)
[2016-10-20] MEDS: ASCORBIC ACID 500 MG TAB PO SCH (12:54)
[2016-10-20] MEDS: CETIRIZINE 10 MG TAB PO SCH (12:54)
[2016-10-20 15:28] VITALS: BP 120/69; PULSE 94; TEMP 98.2; O2SAT 93
[2016-10-20] MEDS ORDERED: PATCH REMOVAL 1 EA PATCH TD SCH (21:00)
== END 2016-10-20 15:44 | disposition home or self-care (01) | DRG 543 ==
LOC: F3E 12:14 → OBSVTOIN 10-19 15:09
PROVIDERS: ADMIT Family Medicine; ATTEND Family Medicine
DX: M84.48XA Pathological fracture, other site, initial encounter for fracture (principal); C79.51 Secondary malignant neoplasm of bone; E87.1 Hypo-osmolality and hyponatremia; N17.9 Acute kidney failure, unspecified; K59.00 Constipation, unspecified; I12.9 Hypertensive chronic kidney disease with stage 1 through stage 4 chronic kidney disease, or unspecified chronic kidney disease; N18.3 Chronic kidney disease, stage 3 (moderate); E86.1 Hypovolemia; M10.9 Gout, unspecified; E78.00 Pure hypercholesterolemia, unspecified; E86.0 Dehydration; Z90.5 Acquired absence of kidney; Z85.819 Personal history of malignant neoplasm of unspecified site of lip, oral cavity, and pharynx; Z87.891 Personal history of nicotine dependence; Z85.528 Personal history of other malignant neoplasm of kidney; Z85.118 Personal history of other malignant neoplasm of bronchus and lung
CPT/HCPCS: 82947-QW; 92610-GN; 97161-GP; 97165-GO; A9540; G0378; G8978-GP-CJ; G8979-GP-CI; J1650; Q9967

== ENCOUNTER → 2016-11-17 | Outpatient (CLI) | payer OTHER | LOC: FIMAGING 09:42 | PROVIDERS: ATTEND Internal Medicine Hematology & Oncology | DX: R17 Unspecified jaundice (principal); Z85.528 Personal history of other malignant neoplasm of kidney; Z90.5 Acquired absence of kidney ==

== ENCOUNTER → 2016-11-29 | Outpatient (CLI) | payer OTHER | LOC: FIMAGING 12:38 | PROVIDERS: ATTEND Nurse Practitioner | DX: M79.89 Other specified soft tissue disorders (principal); L98.9 Disorder of the skin and subcutaneous tissue, unspecified; I26.99 Other pulmonary embolism without acute cor pulmonale ==

== ENCOUNTER 2016-12-04 15:32 | Inpatient (IN) | payer OTHER ==
[2016-12-04] MEDS ORDERED: NS 1,000 ML IV ONE (15:46)
--- NOTE | 2016-12-04 15:47 | EDPHY ---
H & P HPI/ROS: CHIEF COMPLAINT: Syncope HISTORY OF PRESENT ILLNESS: The patient is an 81 y/o male with a history of renal cell carcinoma arriving via EMS after he had a syncopal episode last night. Generalized weakness for 2- 3 days, gradually increasing. Now unable to get out of bed unassisted. Associated with syncopal episode last night. He has an extensive cancer history , including renal and lung cancer. In August he began chemotherapy and developed hepatitis (thought secondary to chemotherapy) 3 weeks ago. He was placed on Prednisone for hepatitis 3 weeks ago. Upset stomach for several days, taking Tums often. He started Lasix 2 days ago for leg swelling but denies changes in the pedal edema. He denies fainting today, blood in his stool and black stool, abdominal pain, vomiting or other pertinent symptoms. REVIEW OF SYSTEMS: Aside from elements discussed in the HPI, a comprehensive 10-point review of systems was reviewed and is negative. Past Medical/Surgical History: Renal and lung cancer, hypercholesteremia, hypertension, left nephrectomy, gout Social History: Lives in [place], daughters at bedside, retired Smoking Status: Former smoker Physical Exam: General Appearance: Alert, weak, pallor Eyes: Pupils equal and round, conjunctival pallor or injection ENT, Mouth: Mucous membranes dry Neck: Normal inspection Respiratory: Lungs are clear to auscultation anteriorly Cardiovascular: Regular rate and rhythm Gastrointestinal: Abdomen is soft and non-tender Rectal: Soiled undergarments, melena Neurological: A&O, nonfocal exam Skin: Yellowish tint to skin, pale, petechiae rash on abdomen Extremities: bilateral tenderness, 3+ pitting pedal edema Psychiatric: Mood and affect normal Constitutional: Initial Vital Signs Temperature (C) 36.5 C 12/04/16 15:43 Heart Rate 88 12/04/16 15:43 Respiratory Rate 16 12/04/16 15:43 Blood Pressure 85/47 L 12/04/16 15:43 O2 Sat (%) 97 12/04/16 15:43 O2 Delivery Mode Nasal Cannula O2 (L/minute) 2 Allergies/Adverse Reactions: niacin [Niacin] Allergy (Intermediate, Verified 07/22/16 10:35) Rash NSAIDS (Non-Steroidal Anti-Inflamma Allergy (Intermediate, Verified 07/22/16 10: 35) Rash Sulfa (Sulfonamide Antibiotics) Allergy (Intermediate, Verified 07/22/16 10:35) Rash Home Medications: Medication Instructions Recorded Allopurinol [Allopurinol 100 MG 100 mg PO BID@,07/22/16 (*)] Ascorbic Acid [Vitamin C 500 mg 500 mg PO DAILY@1200 07/22/16 (*)] Aspirin EC [Aspirin EC 81 mg (*)] 81 mg PO DAILY 07/22/16 Finasteride [Proscar 5 MG (*)] 5 mg PO HS 07/22/16 Fluticasone Nasal [Flonase Nasal 1 sprays NASAL BID PRN 07/22/16 Many] Herbals/Supplements -Info Only 1 ea PO DAILY 07/22/16 Loratadine [Claritin 10 mg] 10 mg PO DAILY@1200 07/22/16 Multivitamins [Multivitamin (*)] 1 each PO DAILY 07/22/16 Cholecalciferol Vit D3 [Vitamin D3 2,000 units PO DAILY 10/18/16 2000 units tab (OTC)] Lisinopril [Zestril 10 mg (*)] 10 mg PO DAILY 10/18/16 Polyethylene Glycol 3350 [Miralax 17 gm PO DAILY #30 dose 10/20/16 17 gm (*)] Sennosides/Docusate Sodium 1 - 2 tab PO BID #60 tab 10/20/16 [Senokot-S] Furosemide [Lasix 20 MG (*)] 20 mg PO DAILY 12/04/16 Spironolactone [Aldactone 25 MG 25 mg PO DAILY 12/04/16 (*)] predniSONE 40 mg PO DAILY 12/04/16 Medical Decision Making - Diagnostics EKG Interpretation: EKG interpreted by me reveals normal sinus rhythm with rate of 89, normal axis, normal intervals, T wave flattening. Imaging: I viewed and interpreted images myself ED Course/Re-evaluation: The patient is an 81 y/o male who presents with an upper GI bleed. His hematocrit was 30 on 12/01/16 and it is 21.3 today. 1u PRBC ordered. Plan on consulting with the hospitalist and order management specialist for admission of this patient. 1609: 80mg IV Protonix administered. The patient developed hypotension, unchanged after 1 L of normal saline. The blood bank was contacted and the blood will not be available for 45 minutes. Given this patient's advanced age and fragility, significant GI bleed and hypotension, I decided to give him 1 unit of O-negative blood. 1619: Consulted with Dr. Ulloa, gastroenterology, regarding the patients admission for an upper GI bleed. She will consult on the patient upon admission. 1636: Consulted with hospitalist service, Dr. Rivero, hospitalist, he accepts admission of this patient to the ICU. The patient remains hypotensive, with systolic blood pressure in the 80s. 1 unit of O-negative blood is infusing, another unit of crossmatched blood will be given. His mental status remains unchanged. He will need urgent endoscopy to determine the source of hemorrhage. In the meanwhile, I feel that a transporting him to the ICU is in his best interest. Differential Diagnosis: Differential diagnosis includes does not limited to esophageal varices, peptic ulcer, AVM, diverticular bleed. Critical Care Time: I spent a total of 40 minutes of critical care time in obtaining history, performing a physical exam, bedside monitoring of interventions, collecting and interpreting tests and discussion with consultants but not including time spent performing procedures. - Data Points Laboratory Results: Laboratory Results 12/04/16 15:35 12/04/16 15:35 12/04/16 16:15 Patient ABO/Rh O POSITIVE Antibody Screen NEGATIVE Crossmatch IS Only See Detail Medications Given: Allopurinol (Allopurinol) 100 mg PO BID@12,21 LISA Stop: 06/02/17 20:59 Last Admin: 12/06/16 20:38 Dose: 100 mg Cetirizine HCl (Zyrtec) 10 mg PO DAILY@1200 LISA Stop: 06/03/17 11:59 Last Admin: 12/06/16 12:02 Dose: 10 mg Finasteride (Proscar) 5 mg PO HS LISA Stop: 06/03/17 20:59 Last Admin: 12/06/16 20:38 Dose: 5 mg Pantoprazole Sodium (Protonix) 40 mg PO BID LISA Stop: 06/04/17 20:59 Last Admin: 12/06/16 20:38 Dose: 40 mg Prednisone (Prednisone) 40 mg PO DAILY LISA Stop: 06/04/17 08:59 Last Admin: 12/06/16 09:14 Dose: 40 mg Tamsulosin HCl (Flomax) 0.4 mg PO DAILY LISA Stop: 06/04/17 08:59 Last Admin: 12/06/16 09:14 Dose: 0.4 mg Discontinued Medications Furosemide (Lasix Injection) 20 mg IVP Q8 LISA Stop: 06/03/17 13:59 Last Admin: 12/06/16 13:51 Dose: 20 mg Furosemide (Lasix Injection) 20 mg IVP ONCE ONE Stop: 12/06/16 00:42 Last Admin: 12/06/16 03:15 Dose: 20 mg Sodium Chloride (Ns) 1,000 mls @ 0 mls/hr IV ONCE ONE PRN Reason: Wide Open Stop: 12/04/16 15:47 Last Admin: 12/04/16 15:47 Dose: 1,000 mls Pantoprazole Sodium 80 mg/ (Sodium Chloride) 100 mls @ 200 mls/hr IV EDNOW ONE Stop: 12/04/16 16:38 Last Admin: 12/04/16 16:54 Dose: 100 mls Sodium Chloride (Ns) 1,000 mls @ 100 mls/hr IV CONT LISA Stop: 06/02/17 17:29 Last Admin: 12/05/16 03:07 Dose: 1,000 mls Pantoprazole Sodium 40 mg/ (Sodium Chloride) 100 mls @ 200 mls/hr IV BID LISA Stop: 06/03/17 08:59 Last Admin: 12/06/16 09:14 Dose: 100 mls Albumin Human (Flexbumin 25 % (Premix)) 100 mls @ 0 mls/hr IV Q8 LISA PRN Reason: As Directed Stop: 06/03/17 13:59 Last Admin: 12/06/16 13:52 Dose: 100 mls Methylprednisolone Sodium Succinate (Solu-Medrol) 40 mg IVP Q8H LISA Stop: 06/02/17 18:14 Last Admin: 12/05/16 09:17 Dose: 40 mg Departure - Departure Disposition: [facility] Inpatient Acute Clinical Impression: Upper GI bleed, Hemorrhagic shock Condition: Critical Report Scribed for: Radha Arciniega Report Scribed by: Brynn Vance Date of Report: 12/04/16 Time of Report: 15:46 Physician Review and Approval Statement: 12/04/16 15:46 Portions of this note were transcribed by a medical claims processor. I personally performed a history, physical exam, medical decision making, and confirmed accuracy of information the transcribed note.
--- NOTE | 2016-12-04 15:48 | CPEKG ---
Heart Rate: 89 RR Interval: 674 P-R Interval: 156 QRSD Interval: 84 QT Interval: 364 QTC Interval: 443 P Bath: 36 QRS Bath: -29 T Wave Bath: 11 EKG Severity - BORDERLINE ECG - EKG Impression: SINUS RHYTHM EKG Impression: BORDERLINE LEFT AXIS DEVIATION EKG Impression: BORDERLINE T WAVE ABNORMALITIES Electronically Signed By: Radha Arciniega 04-Dec-2016 21:14:53
[2016-12-04 15:56] LABS: ABSOLUTE NRBC COUNT 0.14 10^3/uL (0-0.01); ADD DIFF? YES; ADD MORPH? YES; ADD SCAN? NO; ATYPICAL LYMPHOCYTE FLAG 0 (0-99); FRAGMENT RBC FLAG 90 (0-99); HEMATOCRIT 21.3 % (40.0-51.0); HEMOGLOBIN 7.4 g/dL (13.7-17.5); LEFT SHIFT FLG 30 (0-99); LIPEMIA HEMOLYSIS FLAG 90 (0-99); MEAN CELL HEMOGLOBIN 32.3 pg (27.9-34.1); MEAN CELL HEMOGLOBIN CONCENTR. 34.7 g/dL (32.4-36.7); NRBC-AUTO% 0.7 % (0.0-0.2); PLATELET CLUMPS FLAG 10 (0-99); PLATELET COUNT 92 10^3/uL (150-400); RED BLOOD CELL COUNT 2.29 10^6/uL (4.40-6.38)
[2016-12-04 16:05] LABS: RED CELL DISTRIBUTION WIDTH 30.4 % (11.5-15.2)
[2016-12-04] MEDS ORDERED: PANTOPRAZOLE SODIUM 80 MG in NS 100 ML IV ONE (16:09)
[2016-12-04 16:14] LABS: ALANINE AMINOTRANSFERASE 116 IU/L (21-72); ALKALINE PHOSPHATASE 286 IU/L (38-126); ANION GAP 8 mEq/L (8-16); ASPARTATE AMINOTRANSFERASE 60 IU/L (17-59); BILIRUBIN-CONJUGATED 10.7 mg/dL (0.0-0.5); BILIRUBIN-UNCONJUGATED 2.3 mg/dL (0.0-1.1); CALCIUM 8.6 mg/dL (8.5-10.4); CARBON DIOXIDE 24 mEq/l (22-31); CHLORIDE 100 mEq/L (97-110); CREATININE 1.6 mg/dL (0.7-1.3); GLOMERULAR FILTRATION RATE 42; GLUCOSE 126 mg/dL (70-100); POTASSIUM 5.8 mEq/L (3.5-5.2); SODIUM 132 mEq/L (134-144)
[2016-12-04 16:40] LABS: HYPOCHROMIA 3+; MACROCYTES 1+; MICROCYTES 2+; PLATELET ESTIMATE DECREASED (ADEQ); POLYCHROMASIA 1+
[2016-12-04 16:42] LABS: ELLIPTOCYTES 1+; LARGE PLATELETS PRESENT; SCHISTOCYTES 1+; TARGET CELLS 1+
--- NOTE | 2016-12-04 17:01 | ASMTCMCOM ---
CM Note CM Note Notes: Patient admitted for GI bleed, syncope, and weakness. Patient has renal cell carcinoma and began chemo this past August. Patient's most recent IV chemo treatment was three weeks ago. 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 He is followed by Dr Sierra at [facility]. Patient has other extensive cancer history of cancer, including lung cancer. Pt lives at home in [place] and his two daughters, Merry (EMEKA) and Audra, help care for him. Patient was at [facility] 10/19/16 for chest pain and elected to not have home care services at that time, but they had considered HHC with [facility]. Patient has a living will on file from 2005. Exact DC needs unknown at this time. CM to follow. Date Signed: 12/04/2016 05:00 PM Electronically Signed By:Amie Howard RN
[2016-12-04] MEDS ORDERED: ACETAMINOPHEN 325 MG TAB PO PRN (17:22)
[2016-12-04] MEDS ORDERED: ONDANSETRON DISINTEGRATING 4 MG TAB PO PRN (17:22)
[2016-12-04] MEDS ORDERED: ONDANSETRON 4 MG/2 ML VIAL IVP PRN (17:22)
[2016-12-04] MEDS ORDERED: NS 1,000 ML IV SCH (17:30)
[2016-12-04 18:14] LABS: INR 1.59 (0.83-1.16)
[2016-12-04 18:15] LABS: APTT 31.7 SEC (23.0-38.0)
--- NOTE | 2016-12-04 18:36 | GCON ---
[f rep st] CONSULTATION CHIEF COMPLAINT: Syncope. I was asked to see this patient in consultation by Dr. Rivero for a chief complaint of syncope and GI bleed. 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 He has a history of renal cell carcinoma in 2013 with recurrence and is undergoing chemotherapy with Dr. Sierra. With his chemotherapy, he had significant elevation in his liver function tests. He was seen by Dr. Bull in our office, who did an evaluation including checking for viral hepatitis, which was negative, and concluded this most likely was from chemotherapy. The patient was placed on prednisone. He has had improvement in his liver function tests, although he remains jaundices. He had an ultrasound on November 27 that showed an echogenic liver, but no masses and no ascites. A CT scan done in October showed concern of a mass in the left upper quadrant which appeared to be next to the gastric wall and near the splenic artery. The patient had stopped all NSAIDs about a month or 2 ago, but with the prednisone, has had some epigastric discomfort, for which he has been taking Tums. He has no GERD symptoms. No dysphagia. He has had no nausea, vomiting, or hematemesis, but yesterday evening when he was home alone, he had a syncopal episode, but he was in his walker and was able to get to the bed. Then, this morning, he called his caregiver. He was noted to have some dark stools in his Depends. He states he has been unaware of any melena before. No bright red blood. Never had a history of gastric ulcers. He has had no further melena since presentation to the emergency room. The patient has had issues with increasing edema to his lower extremities, but has had no distention of his abdomen. ALLERGIES: Include niacin, NSAIDs, and sulfa. HOME MEDICATIONS: Include Senokot, MiraLAX, multivitamins, lisinopril, and prednisone, which he believes he is taking 40 mg daily. PAST MEDICAL HISTORY: Notable for multiple malignancies as outlined above, including head and neck malignancy, renal, and also lung cancer. He has hypercholesterolemia, hypertension, and a left nephrectomy. He has recent elevation of liver function tests, presumed from chemotherapy. He has history of colon polyps, removed by colonoscopy in 2008, with adenoma and diverticulosis seen. FAMILY HISTORY: Negative for liver disease. SOCIAL HISTORY: He does not drink alcohol. REVIEW OF SYSTEMS: Ten systems: I performed a complete review of systems, which was negative except for the pertinent positives and negatives noted above in the HPI. PHYSICAL EXAMINATION: VITAL SIGNS: The patient is afebrile at 36.5. BP initially was 85/47. With IV fluid hydration, he is now 98/60. Pulse is 88. CONSTITUTIONAL: The patient is alert and oriented. HEENT: Eyes are icteric. Postsurgical changes. Poor dentition. CARDIOVASCULAR: Regular rate and rhythm. CHEST: Clear to auscultation. ABDOMEN: Positive bowel sounds. Midline scar. He has no appreciable ascites. Some tenderness in the epigastric area, but no hepatosplenomegaly detected. NEUROLOGIC: No asterixis and nonfocal. SKIN: He does have a slightly papular red rash across his chest and abdomen, but it is not pruritic. LABORATORY DATA: BUN and creatinine elevated at 64 and 1.6. Sodium 132, with a creatinine of 5.8. Alk phos is 286, AST 60, and ALT 116. These are much improved from 2 weeks ago. Bilirubin is 13. Hematocrit is 21.3, with a hemoglobin of 7.4. White count is elevated 20. Platelets are 92. His hematocrit was 30% on 12/01. Hepatitis A, B, and C serologies are negative. Iron saturation previously was 17%. ASSESSMENT: 1. Patient with acute gastrointestinal bleed given his presentation with melena and elevated BUN, this is very consistent with an upper gastrointestinal bleed. He is having a hemodynamically significant bleed, with a syncopal episode and decline in his hematocrit by symptoms. Most likely, he had a bleeding event yesterday. He does not seem to be actively bleeding now. No hematemesis or persistent melena, but we will need to monitor. Etiology: Differential diagnosis is extensive. He certainly could have peptic ulcer disease. The recent prednisone could increase the risk, although no NSAID use. The patient does have elevated LFTs, presumably from medication, but without otherwise evidence of chronic liver disease, and I do not see any evidence of portal hypertension on exam, also supported by no ascites on ultrasound last week, and I think varices are less likely. However, the patient did have a mass noted in the left upper quadrant that appeared to abut the gastric wall. We need to consider tumor invasion, [place]-T[place] tear, AVMs, etc. Overall high risk for endoscopy but benefits outweigh risks and this was discussed with the patient. 2. Elevated liver function tests. This has been evaluated by Dr. Bull with hepatology. It is thought to be a drug reaction from chemotherapy. Overall, his transaminases are improving, although he is still jaundiced. 3. Renal cancer and intra-abdominal mass. PLAN: I agree with resuscitation. The patient is receiving packed cells and IV fluid. Agree with IV PPI. We will check serial H and H. I have requested that a pro time be repeated since it has been over a week, and we will need correct if abnormal. We will plan for upper endoscopy once stabilized. We will follow. Thanks for this consult. /[id number]/MODL MTDD
[2016-12-04 18:41] LABS: HEMOGLOBIN 7.7 g/dL (13.7-17.5)
--- NOTE | 2016-12-04 19:16 | GHP ---
[f rep st] HISTORY AND PHYSICAL DATE OF ADMISSION: 12/04/2016 CHIEF COMPLAINT: Passed out. 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 He also has a renal cell carcinoma discovered in June of 2011 for which he underwent a left nephrectomy. Recently, he developed hip pain and a lytic lesion was found on the ilium about 3-4 months ago and he was started on pazopanib 800 mg daily. This caused some transaminitis and his dose was reduced , but the transaminitis worsened and his bilirubin elevated and that medication was discontinued, it sounds like a few weeks ago. He was started on prednisone 120 mg daily and is currently on prednisone 80 mg daily as treatment for the drug-induced hepatitis. He has had a general decline, according to his daughters, over the last couple of months. This may all be related to the drug-induced hepatitis. Although CT scan a month ago also showed a mass in the LUQ Yesterday, he was up and around in his house as usual with his walker. Not as strong as he had been a couple of months ago, but no acute decline. Then last night, alone in his house, he felt light-headed and was able to get himself to bed. He thinks he probably passed out briefly, or perhaps for a longer length of time. This morning, when he continued to be light-headed and could not get up, he called for assistance and was brought here by ambulance. His hemoglobin is 7 and just a few days ago, it was 10. He did have a black stool according to his daughter this morning. He has not taken any aspirin or anti-inflammatory medications. He did not take any pain medications whatsoever. His appetite has been poor recently. He did eat yesterday, but has not eaten today. He has not had nausea or vomiting or abdominal pain. He had the 1 black stool this morning. PAST MEDICAL HISTORY/MEDICATIONS: 1. Significant for BPH for which he takes finasteride. 2. He has a history of hypertension that has been treated with lisinopril. 3. He has been on statin medications for hyperlipidemia. 4. He has a history of gout for which he takes allopurinol daily. 5. He has had worsening edema recently for which he has been placed on furosemide 20 mg daily. 6. He has the above-mentioned drug-induced hepatitis for which he is currently taking 80 mg of prednisone daily. With regard to the recent drug-induced hepatitis, he had abdominal imaging with an abdominal ultrasound on 11/17/16 that did not show any ascites or biliary ductal dilatation or any other acute findings. 7. 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 8. Renal cell carcinoma, first diagnosed in 2011 with recent bony metastasis that was temporarily treated as above, but currently on no chemotherapy medications. SOCIAL HISTORY: He lives alone. He has been twice. His first at age 46. His second 2 years ago after a long linares with Alzheimer disease. He has 4 daughters, all of whom live in this area. He is here today with 2 daughters. His other daughter is his medical power of [place] attorney, but she is not with them this afternoon. His 4th daughter has Down syndrome. He has not drank alcohol recently. He is a former light smoker, but quit entirely in 1970. FAMILY HISTORY: Noncontributory in this elderly patient. REVIEW OF SYSTEMS: CONSTITUTIONAL: He denies fevers. His daughters think he has been losing weight recently, despite the edema. NEURO: Denies any focal neurologic deficits, but he did have the syncope. ENT: Denies head congestion or sore throat. RESPIRATORY: Denies shortness of breath or cough. CARDIOVASCULAR: No chest pain or heart palpitations. GI: No nausea, diarrhea , or constipation other than the melena this morning. : Denies problems urinating. MUSCULOSKELETAL: No joint pains. SKIN: He denies a rash, but on exam, he does have papular rash over his abdomen. ENDOCRINE: Denies diabetes. PHYSICAL EXAMINATION: GENERAL: He is an elderly white male lying flat on a gurney. His eyes are closed but he opens them and easily engages in conversation. He is a pretty good historian, although he repeats himself at times. VITAL SIGNS: Blood pressure is 85/47, heart rate 88, oxygen saturation is 97% on 2 L of oxygen, and he is afebrile. He is unable to sit up for me to get a better listen to his lungs because he thinks that will make him light- headed. EYES: Pupils reactive to light. NECK: Supple without adenopathy or thyromegaly. THROAT: Benign. LUNGS: Fine bibasilar crackles in the supine position. HEART: Regular without murmur. ABDOMEN: Soft with mild left lower quadrant tenderness. No masses. Bowel sounds normoactive. EXTREMITIES: 4+ pitting edema bilaterally. SKIN: He has a red papular rash over his chest and lower abdomen with fairly bright red papules, the largest of which is only 3 mm. This is not pruritic. He was not unaware of its existence. NEURO: He is alert and oriented and easily moves all 4 extremities. DATABASE: EKG shows borderline LAD and mildly flattened T waves inferolaterally. I reviewed the tracing myself. His WBC is 20,000, hemoglobin 7, hematocrit 21. Platelets 92,000. ALT is 116. AST is 60. Alkaline phosphatase is 286. Total bilirubin is 13. Albumin is 2.0. His sodium is 132 , potassium 5.8, chloride 100, CO2 24, BUN 64, creatinine 1.6, glucose 126. I also reviewed some data from previous visits. His abdominal ultrasound from 11/17/16 does not show any acute pathology. His CT chest on 10/19/16 showed a new left upper quadrant mass-like infiltrative process. IMPRESSION: 1. Acute gastrointestinal bleed, probably upper source based on melena and recent history of high-dose prednisone use. His blood pressure is low and requires further stabilization. He has been seen in consultation by paleontology teacher, Dr. Ulloa. Her plan is to perform upper endoscopy tomorrow morning after he is more hemodynamically stable. She is available tonight if needed. We will try to stabilize his situation with intravenous fluids and blood transfusions. Check serial hematocrits. INR has not yet been ordered and is pending at the time of this dictation. 2. Hyperkalemia. It looks like at home he takes lisinopril and spironolactone. I will hold both of these medications right now while his blood pressure is low. Recheck potassium later tonight since he will be receiving blood products and appears to have an acute kidney injury which could further exacerbate the hyperkalemia. 3. Acute kidney injury, probably secondary to dehydration of the gastrointestinal bleed. Treat with fluids and blood. 4. Drug-induced hepatitis. His bilirubin and liver enzymes have been gradually improving over the last couple of weeks. Currently on prednisone 80 mg daily. Prednisone will be continued at this time. 5. Mild hyperglycemia. 6. Mild thrombocytopenia. Today's platelet count is a bit lower than it has been running and we will keep an eye on this. 7. Underlying renal cell carcinoma. I have spoken with Dr. Coleman who will see the patient tomorrow. 8. Do Not Resuscitate status. The patient would like to be full code right now , but he says that he does not want to be on a machine should his condition deteriorate to the point that he is unable to make decisions. He does have a living will. I will go ahead and put a full code order in the chart, but further discussion regarding Do Not Resuscitate status would probably be appropriate. 9. Left upper quadrant mass. This was visualized on the CT scan 1 month ago. Chemotherapy recently had to be stopped because of the acute hepatitis. This will need followup evaluation and decision making. 10. Leukocytosis, probably largely secondary to the prednisone. /[id number]/MODL MTDD
[2016-12-04] MEDS: methylPREDNISolone SOD SUCC 40 MG/ML VIAL IVP SCH (19:34)
[2016-12-04 19:49] LABS: COLOR AMBER; LEUKOCYTE ESTERASE,URINE NEGATIVE (NEGATIVE); NITRITE,URINE NEGATIVE (NEGATIVE)
[2016-12-04] MEDS: ALLOPURINOL 100 MG TAB PO SCH (21:30)
[2016-12-04 21:36] LABS: HEMATOCRIT 22.6 % (40.0-51.0)
[2016-12-04 21:46] LABS: ANION GAP 6 mEq/L (8-16); CALCIUM 8.2 mg/dL (8.5-10.4); CARBON DIOXIDE 22 mEq/l (22-31); CHLORIDE 105 mEq/L (97-110); CREATININE 1.4 mg/dL (0.7-1.3); GLOMERULAR FILTRATION RATE 49; GLUCOSE 137 mg/dL (70-100); POTASSIUM 5.4 mEq/L (3.5-5.2); SODIUM 133 mEq/L (134-144)
[2016-12-05 01:45] LABS: HEMATOCRIT 22.3 % (40.0-51.0); HEMOGLOBIN 7.9 g/dL (13.7-17.5)
[2016-12-05] MEDS: methylPREDNISolone SOD SUCC 40 MG/ML VIAL IVP SCH ×2 (02:11→09:17)
[2016-12-05 05:40] LABS: ABSOLUTE NRBC COUNT 0.04 10^3/uL (0-0.01); ADD DIFF? YES; ADD MORPH? YES; ADD SCAN? NO; ATYPICAL LYMPHOCYTE FLAG 0 (0-99); FRAGMENT RBC FLAG 60 (0-99); HEMATOCRIT 22.5 % (40.0-51.0); HEMOGLOBIN 7.8 g/dL (13.7-17.5); LEFT SHIFT FLG 30 (0-99); LIPEMIA HEMOLYSIS FLAG 90 (0-99); MEAN CELL HEMOGLOBIN 32.1 pg (27.9-34.1); MEAN CELL HEMOGLOBIN CONCENTR. 34.7 g/dL (32.4-36.7); MEAN CELL VOLUME 92.6 fL (81.5-99.8); NRBC-AUTO% 0.3 % (0.0-0.2); PLATELET CLUMPS FLAG 20 (0-99); PLATELET COUNT 61 10^3/uL (150-400); RED BLOOD CELL COUNT 2.43 10^6/uL (4.40-6.38)
[2016-12-05 05:47] LABS: INR 1.56 (0.83-1.16); PROTIME(PATIENT) 18.7 SEC (12.0-15.0)
[2016-12-05 05:55] LABS: ALANINE AMINOTRANSFERASE 105 IU/L (21-72); ALBUMIN 1.8 g/dL (3.5-5.0); ALKALINE PHOSPHATASE 242 IU/L (38-126); ANION GAP 5 mEq/L (8-16); ASPARTATE AMINOTRANSFERASE 52 IU/L (17-59); BILIRUBIN,TOTAL 12.3 mg/dL (0.1-1.4); CALCIUM 8.4 mg/dL (8.5-10.4); CARBON DIOXIDE 21 mEq/l (22-31); CHLORIDE 107 mEq/L (97-110); CREATININE 1.5 mg/dL (0.7-1.3); GLOMERULAR FILTRATION RATE 45; GLUCOSE 145 mg/dL (70-100); POTASSIUM 5.4 mEq/L (3.5-5.2); SODIUM 133 mEq/L (134-144); SPECIMEN ICTERUS 6; TOTAL PROTEIN 3.8 g/dL (6.3-8.2); URIC ACID 6.2 mg/dL (3.5-8.5)
[2016-12-05 06:02] LABS: BILIRUBIN-CONJUGATED 10.5 mg/dL (0.0-0.5); BILIRUBIN-UNCONJUGATED 1.8 mg/dL (0.0-1.1)
[2016-12-05 06:24] LABS: ACANTHOCYTES 1+; KERATOCYTES 1+; PLATELET ESTIMATE DECREASED (ADEQ); TARGET CELLS 1+
[2016-12-05] MEDS: PANTOPRAZOLE SODIUM 40 MG in NS 100 ML IV SCH ×2 (09:08→20:58)
--- NOTE | 2016-12-05 09:26 | PDANEPAE ---
ANE History of Present Illness 81 year old male w/ PMHx of renal cell carcinoma (s/p nephrectomy), oral cancer , REGULO/Hyperkalemia (K=5.4), HTN, HLD presents with acute GI bleed. ANE Past Medical History - Cardiovascular History Hx Hypertension: Yes Hx Arrhythmias: No Hx Chest Pain: No Hx Coronary Artery / Peripheral Vascular Disease: Yes Hx CHF / Valvular Disease: No Hx Palpitations: No Cardiovascular History Comment: mild CAD - Pulmonary History Hx COPD: No Hx Asthma/Reactive Airway Disease: No Hx Recent Upper Respiratory Infection: No Hx Oxygen in Use at Home: Yes O2 in Use at Home (L/minute): 2 Hx Sleep Apnea: No - Neurologic History Hx Cerebrovascular Accident: No Hx Seizures: No Hx Dementia: No - Endocrine History Hx Diabetes: No Hypothyroid: No Hyperthyroid: No Obesity: mild - Renal History Hx Renal Disorders: Yes Renal History Comment: tumor. LEFT NEPHRECTOMY 2013 - Liver History Hx Hepatic Disorders: No - Neurological & Psychiatric Hx Hx Neurological and Psychiatric Disorders: No - Cancer History Hx Cancer: Yes Cancer History Comment: oral SQUAMOUS CELL. 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 ORIF Left Ankle. septoplasty, hernia repair,. wide excision oral lesions 2009. supramohyoid neck disection 2003. cataract surgery right eye ANE Review of Systems Review of Systems: ANE Patient History - Allergies Allergies/Adverse Reactions: niacin [Niacin] Allergy (Intermediate, Verified 07/22/16 10:35) Rash NSAIDS (Non-Steroidal Anti-Inflamma Allergy (Intermediate, Verified 07/22/16 10: 35) Rash Sulfa (Sulfonamide Antibiotics) Allergy (Intermediate, Verified 07/22/16 10:35) Rash - Home Medications Home medications: home medication list seen and reviewed Home Medications: Allopurinol [Allopurinol 100 MG (*)] 100 mg PO BID@12,07/22/16 [Last Taken ] Ascorbic Acid [Vitamin C 500 mg (*)] 500 mg PO DAILY@1200 07/22/16 [Last Taken 12/03/16] Aspirin EC [Aspirin EC 81 mg (*)] 81 mg PO DAILY 07/22/16 [Last Taken 12/03/16] Finasteride [Proscar 5 MG (*)] 5 mg PO HS 07/22/16 [Last Taken 12/03/16] Fluticasone Nasal [Flonase Nasal [place]] 1 sprays NASAL BID PRN 07/22/16 [Last Taken Unknown] Herbals/Supplements -Info Only 1 ea PO DAILY 07/22/16 [Last Taken 12/03/16] Loratadine [Claritin 10 mg] 10 mg PO DAILY@1200 07/22/16 [Last Taken 10/17/16] Multivitamins [Multivitamin (*)] 1 each PO DAILY 07/22/16 [Last Taken 12/03/16] Cholecalciferol Vit D3 [Vitamin D3 2000 units tab (OTC)] 2,000 units PO DAILY [Last Taken 12/03/16] Lisinopril [Zestril 10 mg (*)] 10 mg PO DAILY 10/18/16 [Last Taken 12/03/16] Furosemide [Lasix 20 MG (*)] 20 mg PO DAILY 12/04/16 [Last Taken 12/03/16] Spironolactone [Aldactone 25 MG (*)] 25 mg PO DAILY 12/04/16 [Last Taken ] predniSONE 40 mg PO DAILY 12/04/16 [Last Taken 12/03/16] - Smoking Hx Smoking Status: Former smoker - Family Anes Hx Family Hx Anesthesia Complications: no problems ANE Labs/Vital Signs - Labs Result Diagrams: 12/05/16 05:30 12/05/16 05:30 - Vital Signs Vital Signs: reviewed preoperatively; see RN documention for details Blood Pressure: 97/82 Heart Rate: 73 Respiratory Rate: 14 O2 Sat (%): 99 Height: 177.8 cm Weight: 97.1 kg ANE Physical Exam - Airway Neck exam: FROM Mallampati Score: Class 2 Mouth exam: dentures - Pulmonary Pulmonary: no respiratory distress - Cardiovascular Cardiovascular: regular rate and rhythym - ASA Status ASA Status: III ANE Anesthesia Plan Anesthesia Plan: general endotracheal anesthesia, GA with mask Total IV Anesthesia: Yes Urgent/Emergent Case: Anais mcclelland completed preop but documented later for safe timely pt care
[2016-12-05] MEDS ORDERED: PROPOFOL/EMULSION 500 MG/50 ML BOTTLE IV ONE (09:46)
[2016-12-05] MEDS ORDERED: NALOXONE HCL 0.4 MG/ML INJ IVP PRN (10:00)
[2016-12-05] MEDS ORDERED: fentaNYL 100 MCG/2 ML INJ IVP PRN (10:00)
[2016-12-05] MEDS ORDERED: ALTEPLASE 2 MG VIAL IVP PRN (11:17)
--- NOTE | 2016-12-05 12:23 | POSTANESTH ---
Post Anesthetic Evaluation Cardiovascular Status: Normal, Stable, Similar to Pre-Op Cond Respiratory Status: Normal, Stable, Similar to Pre-op Cond. Level of Consciousness/Mental Status: Moderately Sleepy (Similar to pre-op condition.) Pain Control: Adequate, Prn Tx Ordered Nausea/Vomiting Control: Adequate, Prn Tx Ordered Complications Possibly Related to Anesthesia: None Noted
[2016-12-05] MEDS: ALLOPURINOL 100 MG TAB PO SCH ×2 (12:24→21:02)
[2016-12-05] MEDS: CETIRIZINE 10 MG TAB PO SCH (12:24)
[2016-12-05 13:04] LABS: HEMATOCRIT 21.9 % (40.0-51.0); HEMOGLOBIN 7.6 g/dL (13.7-17.5)
[2016-12-05] MEDS ORDERED: FUROSEMIDE 20 MG/2 ML VIAL IVP SCH (13:45)
[2016-12-05] MEDS ORDERED: ALBUMIN 25% 100 ML IV SCH (13:45)
[2016-12-05] MEDS: ALBUMIN 25% 100 ML IV SCH ×2 (14:41→22:01)
[2016-12-05] MEDS: FUROSEMIDE 20 MG/2 ML VIAL IVP SCH ×2 (14:41→21:35)
--- NOTE | 2016-12-05 15:31 | ASMTCMCOM ---
CM Note CM Note Notes: Patient discussed during rounds. He has supportive daughters and HHC. DC needs not clear as of yet. Will follow as needs arise. Date Signed: 12/05/2016 03:30 PM Electronically Signed By:Vy Ashford RN
--- NOTE | 2016-12-05 17:37 | HOSPPROG ---
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 Abdi - she is considering ITP * Metastatic renal cell ca * SCC of mouth - check swallow * Hyperkalemia -hold ACEI, spironolactone -should get better with diuresis * Metabolic encephalopathy * Urinary retention s/p saavedra -proscar, add flomax * ARF - follow COR status clarified with daughter EMEKA - he is FULL COR Subjective: No new complaints. Objective: Vital Signs Temp Pulse Resp BP Pulse Ox 36.5 C 73 14 104/50 L 99 12/05/16 16:00 12/05/16 16:00 12/05/16 16:00 12/05/16 16:00 12/05/16 16:00 Laboratory Results 12/05/16 12:50 12/05/16 05:30 12/04/16 12/05/16 12/06/16 05:59 05:59 05:59 Intake Total 1707 575 Output Total 1095 925 Balance 612 -350 PT 18.7 SEC (12.0-15.0) H 12/05/16 05:30 INR 1.56 (0.83-1.16) H 12/05/16 05:30 CXR - unremarkable d/w Dr. kent and dr. abdi - Physical Exam Constitutional: no apparent distress, appears nourished, not in pain Cardiovascular: regular rate and rhythym, no murmur, rub, or gallop, edema (3+) Respiratory: no respiratory distress, no rales or rhonchi, clear to auscultation Gastrointestinal: normoactive bowel sounds, soft, non-tender abdomen, no palpable masses Skin: other (pale, jaundice), No normal color Neurologic: weakness Psychiatric: encephalopathic, poor insight, poor judgement, poor memory, No interacting appropriately, No agitated ICD10 Worksheet Patient Problems: Problems Problem Status Onset Upper GI bleed Acute Chest pain Acute Dehydration Acute Renal cell carcinoma Acute
--- NOTE | 2016-12-05 20:05 | GCON ---
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 He was subsequently treated with high-dose prednisone a nd then developed at least near syncopal episodes and was admitted 12/04, and found to have a drop in his hematocrit from 30 to 21, likely related to GI bleeding. He is a bit of a poor historian and was unable to give a lot of details, but was treated with fluids, red cells, and PPI, and went for EGD to day. The results are still pending. REVIEW OF SYSTEMS: Otherwise negative. PAST MEDICAL HISTORY: Includes: 1. Renal cell carcinoma as described above, which was originally diagnosed in 2011. He known lung an d bone metastases. 2. He also had oral cancer in 2000, and recurrence of that in 2014. 3. He had a pulmonary embolism on 10/19/2016. He had a biopsy that was complicated by pseudoaneurysm , I believe, around that time as well. 4. He also has BPH. 5. Hypertension. 6. Hyperlipidemia. 7. Gout. 8. Chemo-induced hepatitis. 9. Chronic prednisone. 10. Chronic lower extremity edema of uncertain etiology, though thought to be related to his prednis one. PAST SURGICAL HISTORY: Includes biopsies as described, and a left nephrectomy in the distant past. SOCIAL HISTORY: He is a remote smoker. No alcohol or IV drug use. FAMILY HISTORY: Noncontributory at this time. CURRENT MEDICATIONS: Include Tylenol, albumin, allopurinol, Zyrtec, Proscar, Zofran, pantoprazole, p rednisone, Flomax. PHYSICAL EXAMINATION: VITAL SIGNS: He was afebrile with a blood pressure 104/50, heart rate of 73, r espirations 14, saturation 99% on 2 L. GENERAL: He was somewhat withdrawn but did answer questions ap propriately, and was awake, talking to his daughter when I arrived in the room. He appeared to be meghna rt and oriented. HEENT: Pupils equally round, reactive to light. Nonicteric and noninjected. Mucous m embranes moist without erythema or exudate. NECK: Supple without adenopathy or jugular vein distentio n. RESPIRATORY: Breath sounds were distant, but clear to auscultation bilaterally without wheezes rub s or rales. HEART: Regular rate and rhythm without obvious murmurs, rubs, gallops. ABDOMEN: Mildly te nder diffusely but no obvious guarding or rebound. Normoactive bowel tones. No hepatosplenomegaly. EX TREMITIES: 3+ edema bilaterally. NEUROLOGICAL: Grossly nonfocal including cranial nerves, deep tendon reflexes. SKIN: Warm and dry without evidence of rash. OBJECTIVE DATA: Includes a white count of 12.5, hematocrit 22, up to 21.9 after transfusion, platele ts of 61. INR was 1.56. Sodium 153, potassium 5.4, chloride 107, bicarb 21, BUN 65, creatinine 1.5 wh ich is slightly up from admission, glucose 145. Total bilirubin 12.3. Ammonia level low at 27. Album in 1.8, alkaline phosphatase 242, ALT is 105, and AST is 52. ASSESSMENT AND PLAN: 1. Acute gastrointestinal bleeding. He is undergoing esophagogastroduodenoscopy now as we speak, jackie bustos for the evidence. This is probably increased risk from his high-dose prednisone that he has been on in addition to his moderate thrombocytopenia. He is n.p.o. and has gotten IV fluids, and did not require any pressors. 2. Acute kidney injury is likely due to dehydration. Continue his IV fluids. Monitor his urine outpu t. He may need a Box catheter placed. 3. Hepatitis due to his recent chemotherapy, which has been discontinued. His LFTs continue to impro ve. 4. Thrombocytopenia. This is also likely due to his chemotherapy, but does not require transfusion a t this time unless there is evidence of ongoing bleeding. 5. Lower extremity edema. He had an ultrasound done on 11/28 that showed no evidence of deep vein thr ombosis. I think an echocardiogram would be useful while he is here to evaluate this. This may be rel ated to prednisone, as described, but also to hypoalbuminemia. 6. Renal cell carcinoma, which I would defer to Oncology for further therapy; certainly, on hold at this point. 7. Recent pulmonary embolism. Obviously, anticoagulation held at this time. We will reconsider this after his EGD. /[id number]/MODL
[2016-12-05] MEDS: FINASTERIDE 5 MG TAB PO SCH (21:02)
[2016-12-05 23:37] LABS: HEMATOCRIT 18.6 % (40.0-51.0)
[2016-12-05 23:41] LABS: HEMOGLOBIN 6.6 g/dL (13.7-17.5)
[2016-12-06] MEDS ORDERED: FUROSEMIDE 20 MG/2 ML VIAL IVP ONE (00:41)
[2016-12-06] MEDS: FUROSEMIDE 20 MG/2 ML VIAL IVP SCH ×2 (05:41→13:51)
[2016-12-06 06:05] LABS: % IMMATURE GRANULYOCYTES 2.7 % (0.0-1.1); ABSOLUTE IMMATURE GRANULOCYTES 0.23 10^3/uL (0.00-0.10); ABSOLUTE NRBC COUNT 0.07 10^3/uL (0-0.01); ADD DIFF? NO; ADD MORPH? YES; ADD SCAN? NO; ATYPICAL LYMPHOCYTE FLAG 0 (0-99); FRAGMENT RBC FLAG 20 (0-99); HEMATOCRIT 26.9 % (40.0-51.0); HEMOGLOBIN 9.4 g/dL (13.7-17.5); LEFT SHIFT FLG 30 (0-99); LIPEMIA HEMOLYSIS FLAG 90 (0-99); MEAN CELL HEMOGLOBIN 30.9 pg (27.9-34.1); MEAN CELL HEMOGLOBIN CONCENTR. 34.9 g/dL (32.4-36.7); MEAN CELL VOLUME 88.5 fL (81.5-99.8); NRBC-AUTO% 0.8 % (0.0-0.2); PLATELET CLUMPS FLAG 10 (0-99); RED BLOOD CELL COUNT 3.04 10^6/uL (4.40-6.38)
[2016-12-06] MEDS: ALBUMIN 25% 100 ML IV SCH ×2 (06:08→13:52)
[2016-12-06 06:12] LABS: PLATELET COUNT 39 10^3/uL (150-400); RED CELL DISTRIBUTION WIDTH 22.1 % (11.5-15.2)
[2016-12-06 06:13] LABS: APTT 26.7 SEC (23.0-38.0); INR 1.55 (0.83-1.16); PROTIME(PATIENT) 18.6 SEC (12.0-15.0)
[2016-12-06 06:18] LABS: PLATELET COUNT 39 10^3/uL (150-400)
[2016-12-06 06:52] LABS: HYPOCHROMIA 1+; MICROCYTES 1+; PLATELET ESTIMATE DECREASED (ADEQ); TARGET CELLS 1+
[2016-12-06 07:25] LABS: ALANINE AMINOTRANSFERASE 91 IU/L (21-72); ALBUMIN 2.9 g/dL (3.5-5.0); ALKALINE PHOSPHATASE 207 IU/L (38-126); ANION GAP 10 mEq/L (8-16); ASPARTATE AMINOTRANSFERASE 40 IU/L (17-59); BILIRUBIN,TOTAL 12.9 mg/dL (0.1-1.4); BILIRUBIN-CONJUGATED 10.2 mg/dL (0.0-0.5); BILIRUBIN-UNCONJUGATED 2.7 mg/dL (0.0-1.1); CALCIUM 8.7 mg/dL (8.5-10.4); CARBON DIOXIDE 23 mEq/l (22-31); CHLORIDE 102 mEq/L (97-110); CREATININE 1.5 mg/dL (0.7-1.3); GLOMERULAR FILTRATION RATE 45; GLUCOSE 154 mg/dL (70-100); POTASSIUM 3.7 mEq/L (3.5-5.2); SODIUM 135 mEq/L (134-144); TOTAL PROTEIN 4.9 g/dL (6.3-8.2)
[2016-12-06 07:51] LABS: FIBRINOGEN 135 mg/dL (214-456)
[2016-12-06] MEDS: PANTOPRAZOLE SODIUM 40 MG in NS 100 ML IV SCH (09:14)
[2016-12-06] MEDS: TAMSULOSIN HCL 0.4 MG CAP PO SCH (09:14)
[2016-12-06] MEDS: predniSONE 20 MG TAB PO SCH (09:14)
--- NOTE | 2016-12-06 11:33 | GCON ---
[f rep st] CONSULTATION HEMATOLOGY/ONCOLOGY CONSULTATION. REFERRING PHYSICIAN: Dr. Misty Hayden REASON FOR CONSULTATION: GI bleed, metastatic renal cell cancer. HISTORY OF PRESENT ILLNESS: The patient is an 81-year-old man who is followed by Dr. Sierra for metastatic renal cell cancer. 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 He was treated with nephrectomy. About a year and a half after diagnosis, he developed a left lower lobe pulmonary nodule that was resected. He was found to have a lytic lesion in the ilium earlier this year, at which time he started pazopanib. He tolerated that poorly. A PET scan (07/14/16) demonstrated the left iliac lesion and a questionable abnormality along the right superior ischiopubic ramus, without correlate on CT or abnormal uptake. A 2.1 cm lesion , without PET uptake, in the midpole right kidney was stable, compared with April 2016. A peripherally calcified soft tissue mass along the inferomedial aspect of the spleen, without PET uptake, was reported as smaller than prior scans. In addition to poor tolerance of pazopanib, his LFTs also became significantly abnormal. He saw Dr. Bull in consultation. After workup, it was felt to be secondary to pazopanib. It looks like pazopanib was stopped in September. He was treated with steroids, and his liver function tests have been improving. He received 1 cycle of nivolumab 11/15/16. He was admitted yesterday with syncope and melena. He had an EGD this morning, which apparently demonstrated a gastric ulcer which was not treated. He has been hemodynamically stable. It appears he has received 1 unit of PRBCs. His hemoglobin on admission was 7.4, compared with 10.5 on 12/01/16. He is currently sedated following his procedure. His daughter, who is his medical power of managing consultant clinical professor, is present. PAST MEDICAL HISTORY: 1. Renal cell carcinoma, as above. 2. Head and neck cancer, floor of mouth, 1990. Treated with hemimandibulectomy and regional node dissection. 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 He had some radiation, which was complicated by osteonecrosis, requiring hyperbaric oxygen. PAST SURGICAL HISTORY: As above. MEDICATIONS: Reviewed in [place]. FAMILY HISTORY: Noncontributory. SOCIAL HISTORY: He is a . His of lung cancer. He lives in [place]. His three daughters live nearby. He lives by himself. No alcohol. REVIEW OF SYSTEMS: He is sedated following his procedure but denies abdominal pain, shortness of breath, and chest pain. PHYSICAL EXAM: VITAL SIGNS: Blood pressure 120/56, pulse 79, 100% on 2 L, respiratory rate 16, afebrile. GENERAL: Sedated but arousable and will answer simple questions. Jaundiced. CARDIOVASCULAR: Regular rate and rhythm. EXTREMITIES: Significant bilateral lower extremity edema, which is chronic and attributed to prednisone. LUNGS: Clear on anterior exam. ABDOMEN: Soft, nontender. LABORATORY DATA: This morning: WBC 12.5, hemoglobin 7.8, platelets 61,000 (92, 000 on admission; 102,000 on 12/01/16; 137,000 on 11/28/16; 202,000 on 11/23/16) . Creatinine 1.5 (baseline 1.1), total bilirubin 12.3 (improved from a maximum of 18.4 earlier this month), ASD 52 (improved from over 2000 earlier this month) , ALT 105 (improved from over 1000 earlier this month), alkaline phosphatase 242 (improved from over 1000 earlier this month). IMPRESSION: 1. Upper gastrointestinal bleed: High-dose prednisone is likely a contributor. GI is following. Proton-pump inhibitor has been started. 2. Anemia: He has baseline anemia in the 9.5 to 10.7 range, which is likely multifactorial (antineoplastic therapy, liver function abnormalities) which has been worsened with his gastrointestinal bleed. Transfusing as needed. 3. New-onset thrombocytopenia. 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 His prednisone has been tapered, and I wonder if that is the association. Given his current platelet count, greater than 50,000, and the risks of high-dose steroid use for him, we will monitor his count. I suspect we will need to increase his prednisone dose, however. His thrombocytopenia preceded this hospitalization (documented 11/28/16). 4. Metastatic renal cell carcinoma with what appears to be oligometastatic disease to bone (left ilium). He is currently not a candidate for therapy, given his liver function abnormalities. His daughter asked some questions regarding future treatment decisions and the balance of quality of life. As he recovers from this episode, that can be a future conversation. /[id number]/MODL MTDDayna
[2016-12-06] MEDS: CETIRIZINE 10 MG TAB PO SCH (12:02)
[2016-12-06] MEDS: ALLOPURINOL 100 MG TAB PO SCH ×2 (12:02→20:38)
[2016-12-06 12:13] LABS: % IMMATURE GRANULYOCYTES 2.5 % (0.0-1.1); ABSOLUTE NRBC COUNT 0.08 10^3/uL (0-0.01); ADD DIFF? NO; ADD MORPH? YES; ADD SCAN? NO; ATYPICAL LYMPHOCYTE FLAG 0 (0-99); FRAGMENT RBC FLAG 20 (0-99); HEMATOCRIT 26.1 % (40.0-51.0); HEMOGLOBIN 9.5 g/dL (13.7-17.5); LEFT SHIFT FLG 30 (0-99); LIPEMIA HEMOLYSIS FLAG 90 (0-99); MEAN CELL HEMOGLOBIN CONCENTR. 36.4 g/dL (32.4-36.7); MEAN CELL VOLUME 87.9 fL (81.5-99.8); MEAN PLATELET VOLUME 10.4 fL (8.7-11.7); PLATELET CLUMPS FLAG 10 (0-99); PLATELET COUNT 62 10^3/uL (150-400); RED BLOOD CELL COUNT 2.97 10^6/uL (4.40-6.38)
[2016-12-06 12:15] LABS: RED CELL DISTRIBUTION WIDTH 22.5 % (11.5-15.2)
--- NOTE | 2016-12-06 12:29 | SOAPPROG ---
SOAP Progress Note Assessment/Plan: Assessment: UGIB from 2 DUs. H. pylori pending. Clinically better post transfusion. Plan: Monitor H+H until stable OK to advance diet once H+H stable Can change to PO PPI Subjective: CC GIB Pt feel better no n/v denies melena Objective: Vital Signs Temp Pulse Resp BP Pulse Ox 35.7 C L 85 21 H 130/60 H 100 12/06/16 12:00 12/06/16 12:00 12/06/16 12:00 12/06/16 12:00 12/06/16 12:00 Laboratory Results 12/06/16 12:05 12/06/16 05:45 12/05/16 12/06/16 12/07/16 05:59 05:59 05:59 Intake Total 1707 1667 Output Total 1095 5400 2350 Balance 612 -8304 -7246 PT 18.6 SEC (12.0-15.0) H 12/06/16 05:45 INR 1.55 (0.83-1.16) H 12/06/16 05:45 Physical Exam - Physical Exam General Appearance: alert, no apparent distress Respiratory: chest non-tender, lungs clear Cardiac/Chest: regular rate, rhythm Abdomen: non-tender, soft ICD10 Worksheet Patient Problems: Problems Problem Status Onset Upper GI bleed Acute Chest pain Acute Dehydration Acute Renal cell carcinoma Acute
--- NOTE | 2016-12-06 12:36 | PDINTPN ---
Infectious Diseases Physician Progress Note Assessment/Plan: Assessment/plan: 81 M with metastatic RCC to bone and lungs s/p recent treatment with PD-1 monoclonal antibody who developed chemo-induced hepatitis treated with high dose prednisone. He then had a syncopal episode with a drop in his H/H. He was resuscitated and had EGD (final results pending) suggestive of a clean-based . * UGIB- as above. Await final dictation, but hemodynamically stable. Hct dropped to 18 postprocedure and i/o net minus 6 liters in 48 hrs. Continue to follow H/H though no further melena. * REGULO- likely 2/2 dehydration. Creatinine stable at this time (not clear baseline) but would hold nay further diuretics at this time. * Hepatitis- improving LFTs * Chronic MICHELLE- likely 2/2 significant hypoalbuminemia. DVT r/od on recent US. Check echo * TCP- possible ITP per heme/onc. Await further recs Subjective: Stable overnight, though drop in H/H led to RBC transfusion Objective: Vital Signs Temp Pulse Resp BP Pulse Ox 35.7 C L 85 21 H 130/60 H 100 12/06/16 12:00 12/06/16 12:00 12/06/16 12:00 12/06/16 12:00 12/06/16 12:00 Laboratory Results 12/06/16 12:05 12/06/16 05:45 12/05/16 12/06/16 12/07/16 05:59 05:59 05:59 Intake Total 1707 1667 Output Total 1095 5400 2350 Balance 612 -3733 -2350 PT 18.6 SEC (12.0-15.0) H 12/06/16 05:45 INR 1.55 (0.83-1.16) H 12/06/16 05:45 Physical Exam - Physical Exam General Appearance: alert, no apparent distress EENT: PERRL/EOMI Neck: supple Respiratory: lungs clear, normal breath sounds, No respiratory distress Cardiac/Chest: regular rate, rhythm, edema Abdomen: non-tender, soft, No distended Skin: normal color, warm/dry Lymphatic: no adenopathy Extremities: pedal edema Neuro/Psych: alert, normal mood/affect, oriented x 3 ICD10 Worksheet Patient Problems: Problems Problem Status Onset Upper GI bleed Acute Chest pain Acute Dehydration Acute Renal cell carcinoma Acute
[2016-12-06 13:45] LABS: HYPOCHROMIA 2+; MICROCYTES 1+; POLYCHROMASIA 1+
[2016-12-06 13:46] LABS: ELLIPTOCYTES 1+; PLATELET ESTIMATE DECREASED (ADEQ); TARGET CELLS 2+
--- NOTE | 2016-12-06 14:07 | HOSPPROG ---
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 Objective: Vital Signs Temp Pulse Resp BP Pulse Ox 35.7 C L 85 21 H 130/60 H 100 12/06/16 12:00 12/06/16 12:00 12/06/16 12:00 12/06/16 12:00 12/06/16 12:00 Laboratory Results 12/06/16 12:05 12/06/16 05:45 12/05/16 12/06/16 12/07/16 05:59 05:59 05:59 Intake Total 1707 1667 Output Total 1095 5400 2350 Balance 612 -3733 -2350 PT 18.6 SEC (12.0-15.0) H 12/06/16 05:45 INR 1.55 (0.83-1.16) H 12/06/16 05:45 CXR negative case d/w Dr. Cuevas ICU rounds - doubt ongoing bleeding - Physical Exam Constitutional: no apparent distress, appears nourished, not in pain Cardiovascular: regular rate and rhythym, no murmur, rub, or gallop, edema ( much better) Respiratory: no respiratory distress, no rales or rhonchi, clear to auscultation Gastrointestinal: normoactive bowel sounds, soft, non-tender abdomen, no palpable masses Skin: no rashes or abrasions, no fluctuance, no induration, other (jaundice and pale) Neurologic: AAOx3, sensation intact bilaterally Psychiatric: interacting appropriately, not anxious, not encephalopathic, thought process linear ICD10 Worksheet Patient Problems: Problems Problem Status Onset Upper GI bleed Acute Chest pain Acute Dehydration Acute Renal cell carcinoma Acute
--- NOTE | 2016-12-06 15:25 | SOAPPROG ---
SOAP Progress Note Assessment/Plan: Assessment: * UGI Bleed-secondary to two DU's, likely triggered by steroids. On PPI, switching to oral. * Thrombocytopenia-unclear etiology. Platelets started dropping 11/28. Now down to 39K. May be autoimmune mediated. Received two doses of nivolumab 11/01 and 11/15. 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 Platelets started dropping as prednisone tapered. With DU, likely can't go back up on Pred, but will discuss with GI/hospitalists. * Metastatic renal cell-oligometastatic with disease in known metastasis in left iliac bone. * Transaminitis-felt to be secondary to Votrient. Improving, but still with significant hyperbilirubinemia * History of oral cancer-no evidence of recurrence. Plan: * Follow serial Hcts * continue PPI * Transfuse platelets for platelet count less than 50K. If platelets continue to fall, will likely need additional treatment for ITP. Would consider IV Ig in light of DU with Pred. * cor status to be readdressed in coming days. 12/06/16 15:20 12/06/16 15:26 12/06/16 15:29 Subjective: feels better after blood transfusion, but very tired, no pain Objective: Vital Signs Temp Pulse Resp BP Pulse Ox 35.7 C L 85 21 H 130/60 H 100 12/06/16 12:00 12/06/16 12:00 12/06/16 12:00 12/06/16 12:00 12/06/16 12:00 Laboratory Results 12/06/16 12:05 12/06/16 05:45 12/05/16 12/06/16 12/07/16 05:59 05:59 05:59 Intake Total 1707 1667 Output Total 1095 5400 2350 Balance 612 -0543 -2350 PT 18.6 SEC (12.0-15.0) H 12/06/16 05:45 INR 1.55 (0.83-1.16) H 12/06/16 05:45 Physical Exam - Physical Exam General Appearance: alert, no apparent distress Respiratory: lungs clear Abdomen: non-tender, soft Skin: jaundice Neuro/Psych: alert ICD10 Worksheet Patient Problems: Problems Problem Status Onset Upper GI bleed Acute Chest pain Acute Dehydration Acute Renal cell carcinoma Acute
[2016-12-06 17:56] LABS: % IMMATURE GRANULYOCYTES 1.6 % (0.0-1.1); ABSOLUTE NRBC COUNT 0.05 10^3/uL (0-0.01); ADD DIFF? NO; ADD MORPH? YES; ATYPICAL LYMPHOCYTE FLAG 0 (0-99); FRAGMENT RBC FLAG 20 (0-99); HEMATOCRIT 24.6 % (40.0-51.0); HEMOGLOBIN 8.7 g/dL (13.7-17.5); LEFT SHIFT FLG 20 (0-99); LIPEMIA HEMOLYSIS FLAG 90 (0-99); MEAN CELL HEMOGLOBIN 31.3 pg (27.9-34.1); MEAN CELL HEMOGLOBIN CONCENTR. 35.4 g/dL (32.4-36.7); MEAN CELL VOLUME 88.5 fL (81.5-99.8); MEAN PLATELET VOLUME 11.6 fL (8.7-11.7); NRBC-AUTO% 0.8 % (0.0-0.2); PLATELET CLUMPS FLAG 0 (0-99); PLATELET COUNT 50 10^3/uL (150-400); RED BLOOD CELL COUNT 2.78 10^6/uL (4.40-6.38)
[2016-12-06 17:57] LABS: ADD SCAN? NO
[2016-12-06 17:58] LABS: RED CELL DISTRIBUTION WIDTH 22.6 % (11.5-15.2)
[2016-12-06 19:14] LABS: ECHINOCYTES 1+; ELLIPTOCYTES 1+; HYPOCHROMIA 1+; MACROCYTES 1+; PLATELET ESTIMATE DECREASED (ADEQ); POLYCHROMASIA 1+; TARGET CELLS 1+
[2016-12-06] MEDS: FINASTERIDE 5 MG TAB PO SCH (20:38)
[2016-12-06] MEDS: PANTOPRAZOLE SODIUM 40 MG TAB PO SCH (20:38)
[2016-12-07 00:39] LABS: % IMMATURE GRANULYOCYTES 1.7 % (0.0-1.1); ABSOLUTE NRBC COUNT 0.08 10^3/uL (0-0.01); ADD DIFF? NO; ADD MORPH? YES; ADD SCAN? NO; ATYPICAL LYMPHOCYTE FLAG 0 (0-99); FRAGMENT RBC FLAG 20 (0-99); HEMATOCRIT 23.9 % (40.0-51.0); HEMOGLOBIN 8.4 g/dL (13.7-17.5); LEFT SHIFT FLG 20 (0-99); LIPEMIA HEMOLYSIS FLAG 90 (0-99); MEAN CELL HEMOGLOBIN 31.2 pg (27.9-34.1); MEAN CELL HEMOGLOBIN CONCENTR. 35.1 g/dL (32.4-36.7); MEAN CELL VOLUME 88.8 fL (81.5-99.8); MEAN PLATELET VOLUME 10.9 fL (8.7-11.7); PLATELET CLUMPS FLAG 0 (0-99); RED BLOOD CELL COUNT 2.69 10^6/uL (4.40-6.38)
[2016-12-07 00:42] LABS: NRBC-AUTO% 1.3 % (0.0-0.2); PLATELET COUNT 46 10^3/uL (150-400); RED CELL DISTRIBUTION WIDTH 22.8 % (11.5-15.2)
[2016-12-07 01:39] LABS: ELLIPTOCYTES 1+; HYPOCHROMIA 1+; MACROCYTES 1+; MICROCYTES 1+; POLYCHROMASIA 1+; TARGET CELLS 1+
[2016-12-07 01:40] LABS: PLATELET ESTIMATE DECREASED (ADEQ)
[2016-12-07 05:50] LABS: % IMMATURE GRANULYOCYTES 1.8 % (0.0-1.1); ABSOLUTE IMMATURE GRANULOCYTES 0.11 10^3/uL (0.00-0.10); ABSOLUTE NRBC COUNT 0.06 10^3/uL (0-0.01); ADD DIFF? NO; ADD MORPH? YES; ADD SCAN? NO; ATYPICAL LYMPHOCYTE FLAG 0 (0-99); FRAGMENT RBC FLAG 20 (0-99); HEMATOCRIT 23.3 % (40.0-51.0); HEMOGLOBIN 8.2 g/dL (13.7-17.5); LEFT SHIFT FLG 20 (0-99); LIPEMIA HEMOLYSIS FLAG 90 (0-99); MEAN CELL HEMOGLOBIN 31.7 pg (27.9-34.1); MEAN CELL HEMOGLOBIN CONCENTR. 35.2 g/dL (32.4-36.7); MEAN PLATELET VOLUME 10.5 fL (8.7-11.7); PLATELET CLUMPS FLAG 0 (0-99); PLATELET COUNT 73 10^3/uL (150-400); RED BLOOD CELL COUNT 2.59 10^6/uL (4.40-6.38)
[2016-12-07 05:51] LABS: RED CELL DISTRIBUTION WIDTH 23.3 % (11.5-15.2)
[2016-12-07 06:16] LABS: ALANINE AMINOTRANSFERASE 75 IU/L (21-72); ALBUMIN 3.2 g/dL (3.5-5.0); ALKALINE PHOSPHATASE 177 IU/L (38-126); ANION GAP 12 mEq/L (8-16); ASPARTATE AMINOTRANSFERASE 38 IU/L (17-59); BILIRUBIN,TOTAL 11.8 mg/dL (0.1-1.4); BILIRUBIN-CONJUGATED 8.7 mg/dL (0.0-0.5); BILIRUBIN-UNCONJUGATED 3.1 mg/dL (0.0-1.1); CALCIUM 8.1 mg/dL (8.5-10.4); CARBON DIOXIDE 25 mEq/l (22-31); CHLORIDE 104 mEq/L (97-110); CREATININE 1.3 mg/dL (0.7-1.3); ELLIPTOCYTES 1+; GLOMERULAR FILTRATION RATE 53; GLUCOSE 137 mg/dL (70-100); HYPOCHROMIA 1+; MACROCYTES 1+; MICROCYTES 1+; POLYCHROMASIA 1+; POTASSIUM 3.5 mEq/L (3.5-5.2); SODIUM 141 mEq/L (134-144); TARGET CELLS 1+; TOTAL PROTEIN 5.1 g/dL (6.3-8.2)
[2016-12-07 06:19] LABS: PLATELET ESTIMATE DECREASED (ADEQ)
[2016-12-07 06:20] LABS: TOXIC GRANULATION PRESENT
[2016-12-07] MEDS: predniSONE 20 MG TAB PO SCH (08:19)
[2016-12-07] MEDS: PANTOPRAZOLE SODIUM 40 MG TAB PO SCH ×2 (08:21→20:24)
[2016-12-07] MEDS: TAMSULOSIN HCL 0.4 MG CAP PO SCH (08:21)
--- NOTE | 2016-12-07 08:36 | HOSPPROG ---
Hospitalist Progress Note Assessment/Plan: # UGIB d/t 2 DU's s/p EGD without intervention - cont protonix bid - had been on high dose prednisone # ABLA - s/p 3U PRBC # thrombycytopenia - plts better today; goal plt>50 for now - 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 - on lower dose pred now - possible IVIG if plts fall # REGULO/hyperK - single kidney; improved - holding lisinopril/aldactone # autoimmune hepatitis d/t chemo - treated with prednisone # metastatic renal cell carcinoma - iliac met # vol overload - received albumin and lasix IV - restart lasix PO today; follow renal function closely # SCC of mouth - [employer] following # urinary retention - try to dc saavedra today - proscar, flomax # metabolic encephalopathy - resolved Subjective: no acute events; no melena; very weak Objective: Vital Signs Temp Pulse Resp BP Pulse Ox 36.3 C 79 15 120/70 97 12/07/16 08:00 12/07/16 08:00 12/07/16 08:00 12/07/16 08:00 12/07/16 08:00 Laboratory Results 12/07/16 05:42 12/07/16 05:42 12/06/16 12/07/16 12/08/16 05:59 05:59 05:59 Intake Total 1667 1380 Output Total 5400 5950 Balance -9573 -9860 PT 18.6 SEC (12.0-15.0) H 12/06/16 05:45 INR 1.55 (0.83-1.16) H 12/06/16 05:45 high risk with multiple comorbidities and acute hemorrhage - Physical Exam Constitutional: other (jaundiced) Cardiovascular: regular rate and rhythym, no murmur, rub, or gallop Respiratory: no respiratory distress, no rales or rhonchi, clear to auscultation Gastrointestinal: normoactive bowel sounds, soft, non-tender abdomen, no palpable masses ICD10 Worksheet Patient Problems: Problems Problem Status Onset Dehydration Acute Chest pain Acute Renal cell carcinoma Acute Upper GI bleed Acute Hemorrhagic shock Acute
[2016-12-07] MEDS: FUROSEMIDE 20 MG TAB PO SCH (08:44)
[2016-12-07 11:52] LABS: % IMMATURE GRANULYOCYTES 1.7 % (0.0-1.1); ABSOLUTE IMMATURE GRANULOCYTES 0.11 10^3/uL (0.00-0.10); ABSOLUTE NRBC COUNT 0.07 10^3/uL (0-0.01); ADD DIFF? NO; ADD MORPH? YES; ADD SCAN? NO; ATYPICAL LYMPHOCYTE FLAG 0 (0-99); FRAGMENT RBC FLAG 20 (0-99); HEMATOCRIT 24.5 % (40.0-51.0); HEMOGLOBIN 8.6 g/dL (13.7-17.5); LEFT SHIFT FLG 30 (0-99); LIPEMIA HEMOLYSIS FLAG 90 (0-99); MEAN CELL HEMOGLOBIN CONCENTR. 35.1 g/dL (32.4-36.7); MEAN CELL VOLUME 91.1 fL (81.5-99.8); MEAN PLATELET VOLUME 10.5 fL (8.7-11.7); PLATELET CLUMPS FLAG 0 (0-99); PLATELET COUNT 69 10^3/uL (150-400); RED BLOOD CELL COUNT 2.69 10^6/uL (4.40-6.38)
[2016-12-07 11:53] LABS: POTASSIUM 3.6 mEq/L (3.5-5.2)
[2016-12-07 11:54] LABS: NRBC-AUTO% 1.1 % (0.0-0.2); RED CELL DISTRIBUTION WIDTH 23.4 % (11.5-15.2)
--- NOTE | 2016-12-07 12:03 | ASMTCMCOM ---
CM Note CM Note Notes: Met with patient and also spoke with his daughter Jelena on the phone re: discharge planning. Both agree that patient will need rehab prior to returning home. They selected [facility] for SNF; [facility] inpatient rehab also following. Due to insurance, facilities will need advance notice of patient's discharge in order to submit auth. CM will follow. Date Signed: 12/07/2016 12:02 PM Electronically Signed By:Kim Ch RN
[2016-12-07 12:34] LABS: PLATELET ESTIMATE DECREASED (ADEQ)
[2016-12-07 12:35] LABS: HYPOCHROMIA 1+; POLYCHROMASIA 1+; TARGET CELLS 1+
[2016-12-07] MEDS: ALLOPURINOL 100 MG TAB PO SCH ×2 (12:43→20:24)
[2016-12-07] MEDS: CETIRIZINE 10 MG TAB PO SCH (12:43)
--- NOTE | 2016-12-07 14:02 | SOAPPROG ---
SOAP Progress Note Assessment/Plan: Assessment: UGIB from 2 DUs. H. pylori is negative. No e/o rebleeding. Low PLT Elevated LFT on prednisone Plan: Advance diet PO PPI for 12 weeks no NSAIDS Will sign off foe now. Repeat EGD if rebleeds 12/07/16 14:01 Subjective: CC GIB Pt with no n/v no melena today Objective: Vital Signs Temp Pulse Resp BP Pulse Ox 36.3 C 79 15 120/70 97 12/07/16 08:00 12/07/16 08:00 12/07/16 08:00 12/07/16 08:00 12/07/16 08:00 Laboratory Results 12/07/16 11:40 12/07/16 11:40 12/06/16 12/07/16 12/08/16 05:59 05:59 05:59 Intake Total 1667 1380 Output Total 5400 5950 Balance -3733 -4570 PT 18.6 SEC (12.0-15.0) H 12/06/16 05:45 INR 1.55 (0.83-1.16) H 12/06/16 05:45 Physical Exam - Physical Exam General Appearance: no apparent distress Respiratory: normal breath sounds Cardiac/Chest: regular rate, rhythm Abdomen: non-tender, soft ICD10 Worksheet Patient Problems: Problems Problem Status Onset Hemorrhagic shock Acute Upper GI bleed Acute Chest pain Acute Dehydration Acute Renal cell carcinoma Acute
--- NOTE | 2016-12-07 15:48 | SOAPPROG ---
SOAP Progress Note Assessment/Plan: Assessment: * UGI Bleed-secondary to two DU's, on pred. Hct stable. * Thrombocytopenia-unclear etiology. Platelets started dropping 11/28. Now down to 39K. May be autoimmune mediated. Received two doses of nivolumab 11/01 and 11/15. 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 Platelets started dropping as prednisone tapered. Could also be down due to consumption with bleed. Stable for now. Transfuse for bleeding or <50K * Metastatic renal cell-oligometastatic with disease in known metastasis in left iliac bone. * Transaminitis-felt to be secondary to Votrient. 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 Plan: * Follow serial Hcts * continue PPI * Transfuse platelets for platelet count less than 50K. * cor status to be readdressed in coming days. 12/06/16 15:20 12/06/16 15:26 12/06/16 15:29 12/07/16 15:45 12/07/16 15:46 Subjective: feels much better today. more energy Objective: Vital Signs Temp Pulse Resp BP Pulse Ox 36.3 C 79 15 120/70 97 12/07/16 08:00 12/07/16 08:00 12/07/16 08:00 12/07/16 08:00 12/07/16 08:00 Laboratory Results 12/07/16 11:40 12/07/16 11:40 12/06/16 12/07/16 12/08/16 05:59 05:59 05:59 Intake Total 1667 1380 Output Total 5400 5950 1100 Balance -3733 -4570 -1100 PT 18.6 SEC (12.0-15.0) H 12/06/16 05:45 INR 1.55 (0.83-1.16) H 12/06/16 05:45 Physical Exam - Physical Exam General Appearance: alert, no apparent distress Neck: supple Respiratory: lungs clear Cardiac/Chest: regular rate, rhythm Abdomen: non-tender, soft ICD10 Worksheet Patient Problems: Problems Problem Status Onset Hemorrhagic shock Acute Upper GI bleed Acute Chest pain Acute Dehydration Acute Renal cell carcinoma Acute
[2016-12-07 17:33] LABS: % IMMATURE GRANULYOCYTES 1.9 % (0.0-1.1); ABSOLUTE IMMATURE GRANULOCYTES 0.12 10^3/uL (0.00-0.10); ABSOLUTE NRBC COUNT 0.06 10^3/uL (0-0.01); ADD DIFF? NO; ADD MORPH? YES; ADD SCAN? NO; ATYPICAL LYMPHOCYTE FLAG 0 (0-99); FRAGMENT RBC FLAG 20 (0-99); HEMOGLOBIN 8.7 g/dL (13.7-17.5); LEFT SHIFT FLG 40 (0-99); LIPEMIA HEMOLYSIS FLAG 90 (0-99); MEAN CELL HEMOGLOBIN 31.9 pg (27.9-34.1); MEAN CELL HEMOGLOBIN CONCENTR. 34.8 g/dL (32.4-36.7); MEAN CELL VOLUME 91.6 fL (81.5-99.8); MEAN PLATELET VOLUME 10.7 fL (8.7-11.7); NRBC-AUTO% 0.9 % (0.0-0.2); PLATELET CLUMPS FLAG 0 (0-99); PLATELET COUNT 70 10^3/uL (150-400); RED BLOOD CELL COUNT 2.73 10^6/uL (4.40-6.38)
[2016-12-07 17:34] LABS: RED CELL DISTRIBUTION WIDTH 23.5 % (11.5-15.2)
[2016-12-07 18:47] LABS: MACROCYTES 1+; MICROCYTES 1+; PLATELET ESTIMATE DECREASED (ADEQ); POLYCHROMASIA 1+; TARGET CELLS 1+
[2016-12-07 18:50] LABS: SCHISTOCYTES 1+
[2016-12-07] MEDS: FINASTERIDE 5 MG TAB PO SCH (20:24)
--- NOTE | 2016-12-07 20:25 | GIREPORT ---
[facility] Surgical Services - Endoscopy Department Patient Name: Horacio Hoang Procedure Date: 12/05/2016 9:46 AM Patient Type: Inpatient Attending MD/ ER Physician: Jennifer Ulloa MD Procedure: Upper GI endoscopy Indications: Melena, Suspected upper gastrointestinal bleeding Providers: Jennifer Ulloa MD Medicines: Monitored Anesthesia Care Complications: No immediate complications. Description of Procedure: After obtaining informed consent, the endoscope was passed under direct vision. Throughout the procedure, the patient's blood pressure, pulse, and oxygen saturations were monitored continuous ly. The Endoscope was introduced through the mouth, and advanced to the second part of duodenum. The upper GI endoscopy was accomplished without difficulty. The patient tolerated the procedure well . Findings: LA Grade C (one or more mucosal breaks continuous between tops of 2 or more mucosal folds, less than 75% circumference) esophagitis with no bleeding was found in the lower third of the esophagus. A medium-sized hiatal hernia was present. The entire examined stomach was normal. Biopsies were taken with a cold forceps for histology. Estimated blood loss was minimal. Two non-bleeding cratered duodenal ulcers with pigmented material were found in the duodenal bul b. The largest lesion was 7 mm in largest dimension. Estimated Blood Loss: Estimated blood loss was minimal. Post Op Diagnosis: - LA Grade C reflux esophagitis. - Medium-sized hiatal hernia. - Normal stomach. Biopsied. - Multiple non-bleeding duodenal ulcers with pigmented material. No active bleeding. Recommendation: - Clear liquid diet. - Monitor H+H until stable - Await biopsy for H. pylori - IV PPI today, if does well then can advance diet and change to PO PPI tomorrow. - Continue present medications. - Return patient to ICU for ongoing care. Attending Participation: I personally performed the entire procedure. Jennifer Ulloa MD Jennifer Ulloa MD 12/05/2016 10:07:16 AM Number of Addenda: 0 Note Initiated On: 12/05/2016 9:46 AM Total Procedure Duration Time 0 hours 3 minutes 32 seconds [email or web address]
[2016-12-08 00:27] LABS: % IMMATURE GRANULYOCYTES 1.7 % (0.0-1.1); ABSOLUTE IMMATURE GRANULOCYTES 0.11 10^3/uL (0.00-0.10); ABSOLUTE NRBC COUNT 0.07 10^3/uL (0-0.01); ADD DIFF? NO; ADD MORPH? YES; ADD SCAN? NO; ATYPICAL LYMPHOCYTE FLAG 0 (0-99); FRAGMENT RBC FLAG 20 (0-99); HEMATOCRIT 24.9 % (40.0-51.0); HEMOGLOBIN 8.5 g/dL (13.7-17.5); LEFT SHIFT FLG 20 (0-99); LIPEMIA HEMOLYSIS FLAG 90 (0-99); MEAN CELL HEMOGLOBIN 31.5 pg (27.9-34.1); MEAN CELL HEMOGLOBIN CONCENTR. 34.1 g/dL (32.4-36.7); MEAN CELL VOLUME 92.2 fL (81.5-99.8); MEAN PLATELET VOLUME 10.8 fL (8.7-11.7); PLATELET CLUMPS FLAG 10 (0-99); PLATELET COUNT 64 10^3/uL (150-400)
[2016-12-08 00:39] LABS: NRBC-AUTO% 1.1 % (0.0-0.2); RED CELL DISTRIBUTION WIDTH 23.8 % (11.5-15.2)
[2016-12-08 04:20] LABS: MACROCYTES 1+; MICROCYTES 1+; POLYCHROMASIA 1+
[2016-12-08 04:21] LABS: ACANTHOCYTES 1+; HYPOCHROMIA 1+; PLATELET ESTIMATE DECREASED (ADEQ); TARGET CELLS 1+
[2016-12-08 05:53] LABS: % IMMATURE GRANULYOCYTES 2.1 % (0.0-1.1); ABSOLUTE IMMATURE GRANULOCYTES 0.13 10^3/uL (0.00-0.10); ABSOLUTE NRBC COUNT 0.05 10^3/uL (0-0.01); ADD DIFF? NO; ADD MORPH? YES; ADD SCAN? NO; ATYPICAL LYMPHOCYTE FLAG 0 (0-99); FRAGMENT RBC FLAG 20 (0-99); HEMATOCRIT 25.6 % (40.0-51.0); HEMOGLOBIN 8.7 g/dL (13.7-17.5); LEFT SHIFT FLG 30 (0-99); LIPEMIA HEMOLYSIS FLAG 90 (0-99); MEAN CELL HEMOGLOBIN 31.6 pg (27.9-34.1); MEAN CELL VOLUME 93.1 fL (81.5-99.8); MEAN PLATELET VOLUME 10.2 fL (8.7-11.7); NRBC-AUTO% 0.8 % (0.0-0.2); PLATELET CLUMPS FLAG 0 (0-99); PLATELET COUNT 59 10^3/uL (150-400); RED BLOOD CELL COUNT 2.75 10^6/uL (4.40-6.38)
[2016-12-08 06:01] LABS: RED CELL DISTRIBUTION WIDTH 23.7 % (11.5-15.2)
[2016-12-08 06:07] LABS: ALANINE AMINOTRANSFERASE 88 IU/L (21-72); ALKALINE PHOSPHATASE 237 IU/L (38-126); ANION GAP 8 mEq/L (8-16); ASPARTATE AMINOTRANSFERASE 57 IU/L (17-59); BILIRUBIN,TOTAL 12.5 mg/dL (0.1-1.4); CALCIUM 8.3 mg/dL (8.5-10.4); CARBON DIOXIDE 27 mEq/l (22-31); CHLORIDE 104 mEq/L (97-110); CREATININE 1.2 mg/dL (0.7-1.3); GLOMERULAR FILTRATION RATE 58; GLUCOSE 118 mg/dL (70-100); POTASSIUM 3.7 mEq/L (3.5-5.2); SODIUM 139 mEq/L (134-144); SPECIMEN ICTERUS 7; TOTAL PROTEIN 5.1 g/dL (6.3-8.2)
[2016-12-08 06:13] LABS: BILIRUBIN-CONJUGATED 9.5 mg/dL (0.0-0.5)
[2016-12-08 06:18] LABS: MACROCYTES 1+; MICROCYTES 1+; POLYCHROMASIA 1+; TARGET CELLS 1+
[2016-12-08 06:21] LABS: PLATELET ESTIMATE DECREASED (ADEQ)
[2016-12-08 06:22] LABS: HYPOCHROMIA 1+
[2016-12-08] MEDS: PANTOPRAZOLE SODIUM 40 MG TAB PO SCH ×2 (09:00→20:40)
[2016-12-08] MEDS: predniSONE 20 MG TAB PO SCH (09:00)
[2016-12-08] MEDS: FUROSEMIDE 20 MG TAB PO SCH (09:00)
[2016-12-08] MEDS: TAMSULOSIN HCL 0.4 MG CAP PO SCH (09:00)
--- NOTE | 2016-12-08 10:05 | HOSPPROG ---
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 # vol overload - received albumin and lasix IV - lasix PO started yesterday; restart aldactone today # SCC of mouth - WORT EXTRACTOR following # urinary retention - saavedra dc'd, follow UOP - proscar, flomax # metabolic encephalopathy - resolved Subjective: no melena overnight Objective: Vital Signs Temp Pulse Resp BP Pulse Ox 36.4 C 84 18 119/80 94 12/08/16 07:56 12/08/16 07:56 12/08/16 07:56 12/08/16 07:56 12/08/16 07:56 Laboratory Results 12/08/16 05:40 12/08/16 05:40 12/07/16 12/08/16 12/09/16 05:59 05:59 05:59 Intake Total 1380 790 360 Output Total 5950 2300 125 Balance -4570 -1510 235 PT 18.6 SEC (12.0-15.0) H 12/06/16 05:45 INR 1.55 (0.83-1.16) H 12/06/16 05:45 high risk with liver failure, GIB - Physical Exam Constitutional: other (jaundiced) Cardiovascular: regular rate and rhythym, no murmur, rub, or gallop Respiratory: no respiratory distress, no rales or rhonchi, clear to auscultation Gastrointestinal: normoactive bowel sounds, soft, non-tender abdomen, no palpable masses ICD10 Worksheet Patient Problems: Problems Problem Status Onset Dehydration Acute Chest pain Acute Renal cell carcinoma Acute Upper GI bleed Acute Hemorrhagic shock Acute
[2016-12-08] MEDS: ALLOPURINOL 100 MG TAB PO SCH ×2 (12:26→20:40)
[2016-12-08] MEDS: CETIRIZINE 10 MG TAB PO SCH (12:26)
[2016-12-08] MEDS: SPIRONOLACTONE 25 MG TAB PO SCH (12:27)
--- NOTE | 2016-12-08 12:55 | SOAPPROG ---
SOAP Progress Note Assessment/Plan: Assessment: * UGI Bleed-secondary to two DU's, Hct stable. * Thrombocytopenia-unclear etiology. Platelets started dropping 11/28. Platelets stable at 59K. May be autoimmune mediated. Received two doses of nivolumab 11/01 and 11/15. 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 Platelets started dropping as prednisone tapered. Could also be down due to consumption with bleed. Stable for now. Transfuse for bleeding or <50K * Metastatic renal cell-oligometastatic with disease in known metastasis in left iliac bone. * Transaminitis-felt to be secondary to Votrient. 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 * Deconditioning-very weak. Will likely need inpatient rehab at some point. Will check with GI to see if ok to start tapering down on Pred. May be contributing to weakness. Plan: * ?taper pred * continue PPI * Transfuse platelets for platelet count less than 50K. Subjective: feeling better. Up in a chair eating. Objective: Vital Signs Temp Pulse Resp BP Pulse Ox 36.4 C 103 H 16 129/66 H 95 12/08/16 11:40 12/08/16 11:40 12/08/16 11:40 12/08/16 11:40 12/08/16 11:40 Laboratory Results 12/08/16 05:40 12/08/16 05:40 12/07/16 12/08/16 12/09/16 05:59 05:59 05:59 Intake Total 1380 790 360 Output Total 5950 2300 125 Balance -4570 -1510 235 PT 18.6 SEC (12.0-15.0) H 12/06/16 05:45 INR 1.55 (0.83-1.16) H 12/06/16 05:45 Physical Exam - Physical Exam General Appearance: alert, no apparent distress EENT: other (poor dentition) Respiratory: lungs clear Abdomen: non-tender, soft Extremities: No pedal edema ICD10 Worksheet Patient Problems: Problems Problem Status Onset Hemorrhagic shock Acute Upper GI bleed Acute Chest pain Acute Dehydration Acute Renal cell carcinoma Acute
[2016-12-08 13:09] LABS: ABSOLUTE IMMATURE GRANULOCYTES 0.13 10^3/uL (0.00-0.10); ABSOLUTE NRBC COUNT 0.04 10^3/uL (0-0.01); ADD DIFF? NO; ADD MORPH? YES; ADD SCAN? NO; ATYPICAL LYMPHOCYTE FLAG 0 (0-99); FRAGMENT RBC FLAG 20 (0-99); HEMATOCRIT 27.1 % (40.0-51.0); HEMOGLOBIN 9.3 g/dL (13.7-17.5); LEFT SHIFT FLG 40 (0-99); LIPEMIA HEMOLYSIS FLAG 90 (0-99); MEAN CELL HEMOGLOBIN 32.3 pg (27.9-34.1); MEAN CELL HEMOGLOBIN CONCENTR. 34.3 g/dL (32.4-36.7); MEAN CELL VOLUME 94.1 fL (81.5-99.8); MEAN PLATELET VOLUME 11.5 fL (8.7-11.7); NRBC-AUTO% 0.6 % (0.0-0.2); PLATELET CLUMPS FLAG 0 (0-99); PLATELET COUNT 64 10^3/uL (150-400); RED BLOOD CELL COUNT 2.88 10^6/uL (4.40-6.38)
[2016-12-08 13:23] LABS: RED CELL DISTRIBUTION WIDTH 24.1 % (11.5-15.2)
--- NOTE | 2016-12-08 14:02 | ASMTCMCOM ---
CM Note CM Note Notes: [employer] called to state that they got auth for pt's admission to [facility] but that it is only good for 48 hours, which means it will at noon on Monday. If pt is not ready for DC then, [facility] may not be able to get reauth until Monday. C/M will continue to follow. Date Signed: 12/08/2016 02:01 PM Electronically Signed By:Savannah Dalton LCSW
[2016-12-08 14:24] LABS: HYPOCHROMIA 1+; MACROCYTES 1+; MICROCYTES 1+; POLYCHROMASIA 1+
[2016-12-08 14:25] LABS: PLATELET ESTIMATE DECREASED (ADEQ); TARGET CELLS 1+
[2016-12-08] MEDS: FINASTERIDE 5 MG TAB PO SCH (20:40)
[2016-12-09 05:47] LABS: HEMATOCRIT 25.6 % (40.0-51.0); HEMOGLOBIN 8.7 g/dL (13.7-17.5); MEAN CELL HEMOGLOBIN 31.8 pg (27.9-34.1); MEAN CELL VOLUME 93.4 fL (81.5-99.8); RED BLOOD CELL COUNT 2.74 10^6/uL (4.40-6.38)
[2016-12-09 05:48] LABS: RED CELL DISTRIBUTION WIDTH 23.6 % (11.5-15.2)
[2016-12-09 06:05] LABS: ALANINE AMINOTRANSFERASE 99 IU/L (21-72); ALBUMIN 2.8 g/dL (3.5-5.0); ALKALINE PHOSPHATASE 246 IU/L (38-126); ANION GAP 8 mEq/L (8-16); ASPARTATE AMINOTRANSFERASE 59 IU/L (17-59); BILIRUBIN,TOTAL 10.2 mg/dL (0.1-1.4); CALCIUM 7.9 mg/dL (8.5-10.4); CARBON DIOXIDE 25 mEq/l (22-31); CHLORIDE 102 mEq/L (97-110); CREATININE 1.1 mg/dL (0.7-1.3); GLOMERULAR FILTRATION RATE > 60; GLUCOSE 97 mg/dL (70-100); POTASSIUM 3.9 mEq/L (3.5-5.2); SODIUM 135 mEq/L (134-144); SPECIMEN ICTERUS 6; TOTAL PROTEIN 4.7 g/dL (6.3-8.2)
[2016-12-09 06:12] LABS: BILIRUBIN-CONJUGATED 7.8 mg/dL (0.0-0.5); BILIRUBIN-UNCONJUGATED 2.4 mg/dL (0.0-1.1)
[2016-12-09] MEDS: TAMSULOSIN HCL 0.4 MG CAP PO SCH (08:01)
[2016-12-09] MEDS: FUROSEMIDE 20 MG TAB PO SCH (08:01)
[2016-12-09] MEDS: SPIRONOLACTONE 25 MG TAB PO SCH (08:01)
[2016-12-09] MEDS: PANTOPRAZOLE SODIUM 40 MG TAB PO SCH ×2 (08:02→22:23)
[2016-12-09] MEDS: predniSONE 20 MG TAB PO SCH (08:02)
[2016-12-09] MEDS: CETIRIZINE 10 MG TAB PO SCH (11:43)
[2016-12-09] MEDS: ALLOPURINOL 100 MG TAB PO SCH ×2 (11:43→22:23)
--- NOTE | 2016-12-09 14:50 | HOSPPROG ---
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 # vol overload - received albumin and lasix IV - lasix PO started yesterday; restart aldactone today # SCC of mouth - MACHINE I TRIMMER following # urinary retention - saavedra dc'd, follow UOP - proscar, flomax # metabolic encephalopathy - resolved Subjective: eating, so far tolerating food Objective: Vital Signs Temp Pulse Resp BP Pulse Ox 36.4 C 88 16 124/69 H 96 12/09/16 07:34 12/09/16 07:34 12/09/16 07:34 12/09/16 07:34 12/09/16 07:34 Laboratory Results 12/09/16 04:30 12/09/16 04:30 12/08/16 12/09/16 12/10/16 05:59 05:59 05:59 Intake Total 790 1610 Output Total 2300 1445 Balance -1510 165 PT 18.6 SEC (12.0-15.0) H 12/06/16 05:45 INR 1.55 (0.83-1.16) H 12/06/16 05:45 - Physical Exam Constitutional: no apparent distress, appears nourished, other (scleral icterus) Cardiovascular: regular rate and rhythym, systolic murmur, No irregularly irregular Respiratory: no respiratory distress Gastrointestinal: normoactive bowel sounds, soft, non-tender abdomen, no palpable masses ICD10 Worksheet Patient Problems: Problems Problem Status Onset Dehydration Acute Chest pain Acute Renal cell carcinoma Acute Upper GI bleed Acute Hemorrhagic shock Acute
--- NOTE | 2016-12-09 20:05 | SOAPPROG ---
SOAP Progress Note Assessment/Plan: Assessment: * UGI Bleed: secondary to two DU's, Hct stable. * Thrombocytopenia: unclear etiology. Platelets started dropping 11/28. May be autoimmune mediated with steroid taper. Received two doses of nivolumab 11/01 and 11/15. 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 Platelets started dropping as prednisone tapered. ?due to liver disease. Transfuse for bleeding or <50K * Metastatic renal cell: oligometastatic with disease in known metastasis in left iliac bone. * Abnormal LFTs: felt to be secondary to Votrient. Improving. Tapering prednisone. 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 * Deconditioning: very weak. 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 Tapering steroids. Planning rehab. Subjective: S; Fatigued, but in good spirits. Very weak arms, legs. O: VSS. Gen: jaundiced, sitting in chair, NAD. Lungs: breathing comfortably. Ext: bilateral LE edema (longstanding, unchanged). Abd: soft, NT. Laboratory Tests 12/09/16 12/09/16 04:30 04:30 WBC 5.40 Hgb 8.7 L Plt Count 50 L Creatinine 1.1 Total Bilirubin 10.2 H Conjugated Bilirubin 7.8 H Unconjugated Bilirubin 2.4 H AST 59 ALT 99 H Alkaline Phosphatase 246 H Objective: Vital Signs Temp Pulse Resp BP Pulse Ox 36.4 C 96 16 125/66 H 96 12/09/16 15:33 12/09/16 15:33 12/09/16 15:33 12/09/16 15:33 12/09/16 15:33 Laboratory Results 12/09/16 04:30 12/09/16 04:30 12/08/16 12/09/16 12/10/16 05:59 05:59 05:59 Intake Total 790 1610 Output Total 2300 1445 200 Balance -1510 165 -200 PT 18.6 SEC (12.0-15.0) H 12/06/16 05:45 INR 1.55 (0.83-1.16) H 12/06/16 05:45 ICD10 Worksheet Patient Problems: Problems Problem Status Onset Hemorrhagic shock Acute Upper GI bleed Acute Chest pain Acute Dehydration Acute Renal cell carcinoma Acute
[2016-12-09] MEDS: FINASTERIDE 5 MG TAB PO SCH (22:23)
[2016-12-10 06:11] LABS: % IMMATURE GRANULYOCYTES 1.4 % (0.0-1.1); ADD DIFF? NO; ADD MORPH? YES; ADD SCAN? NO; ATYPICAL LYMPHOCYTE FLAG 10 (0-99); FRAGMENT RBC FLAG 20 (0-99); HEMATOCRIT 27.2 % (40.0-51.0); HEMOGLOBIN 9.4 g/dL (13.7-17.5); LEFT SHIFT FLG 20 (0-99); LIPEMIA HEMOLYSIS FLAG 90 (0-99); MEAN CELL HEMOGLOBIN 31.9 pg (27.9-34.1); MEAN CELL HEMOGLOBIN CONCENTR. 34.6 g/dL (32.4-36.7); MEAN CELL VOLUME 92.2 fL (81.5-99.8); MEAN PLATELET VOLUME 11.5 fL (8.7-11.7); PLATELET CLUMPS FLAG 0 (0-99); RED BLOOD CELL COUNT 2.95 10^6/uL (4.40-6.38)
[2016-12-10 06:14] LABS: PLATELET COUNT 48 10^3/uL (150-400); RED CELL DISTRIBUTION WIDTH 23.2 % (11.5-15.2)
[2016-12-10 06:43] LABS: ALANINE AMINOTRANSFERASE 107 IU/L (21-72); ALBUMIN 2.7 g/dL (3.5-5.0); ALKALINE PHOSPHATASE 314 IU/L (38-126); ANION GAP 7 mEq/L (8-16); ASPARTATE AMINOTRANSFERASE 62 IU/L (17-59); BILIRUBIN,TOTAL 9.8 mg/dL (0.1-1.4); CALCIUM 8.6 mg/dL (8.5-10.4); CARBON DIOXIDE 25 mEq/l (22-31); CHLORIDE 99 mEq/L (97-110); CREATININE 1.1 mg/dL (0.7-1.3); GLOMERULAR FILTRATION RATE > 60; GLUCOSE 109 mg/dL (70-100); POTASSIUM 4.2 mEq/L (3.5-5.2); SODIUM 131 mEq/L (134-144); TOTAL PROTEIN 4.9 g/dL (6.3-8.2)
[2016-12-10 07:04] LABS: ACANTHOCYTES 1+; ELLIPTOCYTES 1+; HYPOCHROMIA 1+; PLATELET ESTIMATE DECREASED (ADEQ)
[2016-12-10 07:35] LABS: BILIRUBIN-CONJUGATED 7.5 mg/dL (0.0-0.5); BILIRUBIN-UNCONJUGATED 2.3 mg/dL (0.0-1.1)
[2016-12-10] MEDS: SPIRONOLACTONE 25 MG TAB PO SCH (08:23)
[2016-12-10] MEDS: PANTOPRAZOLE SODIUM 40 MG TAB PO SCH ×2 (08:23→22:09)
[2016-12-10] MEDS: TAMSULOSIN HCL 0.4 MG CAP PO SCH (08:23)
[2016-12-10] MEDS: predniSONE 20 MG TAB PO SCH (08:23)
[2016-12-10] MEDS: FUROSEMIDE 20 MG TAB PO SCH (08:23)
--- NOTE | 2016-12-10 11:24 | SOAPPROG ---
SOAP Progress Note Assessment/Plan: E&M for renal cell cancer * UGI Bleed: secondary to two DU's, Hct stable. * Thrombocytopenia: unclear etiology. Platelets started dropping 11/28. Autoimmune mediated vs. hepatic failure. Received two doses of nivolumab 11/01 and 11/15. 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 Platelets started dropping as prednisone tapered but steroid causing myopathy. Transfuse for bleeding or < 50K. Can also try trial of IVIg if drops more. * Metastatic renal cell: oligometastatic with disease in known metastasis in left iliac bone. * Abnormal LFTs: felt to be secondary to Votrient. Bili improving. Tapering prednisone. 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 Tapering steroids. Planning rehab. Subjective: Feeling weak but no new complaints. Objective: Vital Signs Temp Pulse Resp BP Pulse Ox 36.3 C 100 16 110/58 L 95 12/10/16 07:27 12/10/16 07:27 12/10/16 07:27 12/10/16 07:27 12/10/16 07:27 Laboratory Results 12/10/16 06:00 12/10/16 06:00 12/09/16 12/10/16 12/11/16 05:59 05:59 05:59 Intake Total 1610 400 Output Total 1445 1200 375 Balance 165 -800 -375 PT 18.6 SEC (12.0-15.0) H 12/06/16 05:45 INR 1.55 (0.83-1.16) H 12/06/16 05:45 Laboratory Tests 12/08/16 12/08/16 12/09/16 05:40 12:56 04:30 Plt Count 64 L Total Bilirubin 12.5 H 10.2 H 12/09/16 12/10/16 12/10/16 04:30 06:00 06:00 Plt Count 50 L 48 L Total Bilirubin 9.8 H Physical Exam - Physical Exam General Appearance: no apparent distress Respiratory: lungs clear Cardiac/Chest: regular rate, rhythm, edema Skin: jaundice ICD10 Worksheet Patient Problems: Problems Problem Status Onset Hemorrhagic shock Acute Upper GI bleed Acute Chest pain Acute Dehydration Acute Renal cell carcinoma Acute
[2016-12-10] MEDS: ALLOPURINOL 100 MG TAB PO SCH ×2 (12:45→22:09)
[2016-12-10] MEDS: CETIRIZINE 10 MG TAB PO SCH (12:45)
--- NOTE | 2016-12-10 15:13 | ASMTCMCOM ---
CM Note CM Note Notes: Pt's [employer] Medicare ins auth to go to [employer] has . [facility] unable to seek reauth until Monday. C/M to follow. Date Signed: 12/10/2016 03:12 PM Electronically Signed By:Savannah Dalton LCSW
--- NOTE | 2016-12-10 17:53 | HOSPPROG ---
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, treated with prednisone - tapered per onc and GI # metastatic renal cell carcinoma s/p nephrectomy- iliac met # vol overload - received albumin and lasix IV - lasix PO started; aldactone restarted # SCC of mouth - EDUCATIONAL INSTITUTION PRESIDENT following # urinary retention - saavedra dc'd, follow UOP - proscar, flomax # metabolic encephalopathy - resolved PLANS: -continue current medical management -follow labs closely -continue PT and OT -the plan is for the patient to probably be discharged to rehab in 2 days SUBJECTIVE: Feels well with no abdominal pain nausea, eating well remains extremely weak OBJECTIVE Vitals reviewed: Stable without fever Exam: alert oriented skin warm dry color ok resps not labored lungs clear BSs heart regular abd soft nondistended nontender, bowel sounds present limbs warm, no edema iv site ok Objective: Vital Signs Temp Pulse Resp BP Pulse Ox 36.5 C 108 H 17 120/62 94 12/10/16 15:45 12/10/16 15:45 12/10/16 15:45 12/10/16 15:45 12/10/16 15:45 Laboratory Results 12/10/16 06:00 12/10/16 06:00 12/09/16 12/10/16 12/11/16 06:59 06:59 06:59 Intake Total 1610 400 Output Total 1445 1200 1600 Balance 165 -800 -1600 PT 18.6 SEC (12.0-15.0) H 12/06/16 05:45 INR 1.55 (0.83-1.16) H 12/06/16 05:45 ICD10 Worksheet Patient Problems: Problems Problem Status Onset Hemorrhagic shock Acute Upper GI bleed Acute Chest pain Acute Dehydration Acute Renal cell carcinoma Acute
[2016-12-10] MEDS: FINASTERIDE 5 MG TAB PO SCH (22:09)
[2016-12-11 03:58] LABS: % IMMATURE GRANULYOCYTES 1.7 % (0.0-1.1); ABSOLUTE IMMATURE GRANULOCYTES 0.14 10^3/uL (0.00-0.10); ABSOLUTE NRBC COUNT 0.03 10^3/uL (0-0.01); ADD DIFF? NO; ADD MORPH? YES; ADD SCAN? NO; ATYPICAL LYMPHOCYTE FLAG 0 (0-99); FRAGMENT RBC FLAG 20 (0-99); HEMATOCRIT 27.2 % (40.0-51.0); HEMOGLOBIN 9.5 g/dL (13.7-17.5); LEFT SHIFT FLG 20 (0-99); LIPEMIA HEMOLYSIS FLAG 90 (0-99); MEAN CELL HEMOGLOBIN 32.1 pg (27.9-34.1); MEAN CELL HEMOGLOBIN CONCENTR. 34.9 g/dL (32.4-36.7); MEAN CELL VOLUME 91.9 fL (81.5-99.8); MEAN PLATELET VOLUME 11.3 fL (8.7-11.7); NRBC-AUTO% 0.4 % (0.0-0.2); PLATELET CLUMPS FLAG 0 (0-99); RED BLOOD CELL COUNT 2.96 10^6/uL (4.40-6.38)
[2016-12-11 04:02] LABS: PLATELET COUNT 49 10^3/uL (150-400); RED CELL DISTRIBUTION WIDTH 23.6 % (11.5-15.2)
[2016-12-11 04:20] LABS: ALANINE AMINOTRANSFERASE 122 IU/L (21-72); ALBUMIN 2.9 g/dL (3.5-5.0); ALKALINE PHOSPHATASE 362 IU/L (38-126); ANION GAP 9 mEq/L (8-16); ASPARTATE AMINOTRANSFERASE 65 IU/L (17-59); BILIRUBIN,TOTAL 8.9 mg/dL (0.1-1.4); CALCIUM 8.6 mg/dL (8.5-10.4); CARBON DIOXIDE 24 mEq/l (22-31); CHLORIDE 99 mEq/L (97-110); CREATININE 1.1 mg/dL (0.7-1.3); GLOMERULAR FILTRATION RATE > 60; GLUCOSE 115 mg/dL (70-100); POTASSIUM 4.4 mEq/L (3.5-5.2); SODIUM 132 mEq/L (134-144)
[2016-12-11 04:27] LABS: BILIRUBIN-CONJUGATED 6.9 mg/dL (0.0-0.5)
[2016-12-11 05:10] LABS: ACANTHOCYTES 1+; ELLIPTOCYTES 1+; HYPOCHROMIA 1+; PLATELET ESTIMATE DECREASED (ADEQ)
[2016-12-11] MEDS: TAMSULOSIN HCL 0.4 MG CAP PO SCH (09:12)
[2016-12-11] MEDS: FUROSEMIDE 20 MG TAB PO SCH (09:12)
[2016-12-11] MEDS: SPIRONOLACTONE 25 MG TAB PO SCH (09:12)
[2016-12-11] MEDS: PANTOPRAZOLE SODIUM 40 MG TAB PO SCH ×2 (09:12→20:43)
[2016-12-11] MEDS: predniSONE 20 MG TAB PO SCH (09:12)
[2016-12-11] MEDS: ALLOPURINOL 100 MG TAB PO SCH ×2 (12:41→20:43)
[2016-12-11] MEDS: CETIRIZINE 10 MG TAB PO SCH (12:41)
--- NOTE | 2016-12-11 14:03 | HOSPPROG ---
Hospitalist Progress Note Assessment/Plan: Status post an upper GI bleed status post EGD without intervention. Patient is known thrombocytopenia which today has been stable at approximately 47,000. Patient new to me today. -acute upper GI bleed, to duodenal ulcers, status post EGD without intervention.. He will continue on PPI twice daily dosage. He has been on high -dose steroids. -ABLA: Status post 3 units PRBC, now stable -thrombocytopenia: Possible ITP. He has been on steroids and now platelets are stable at approximately 47,000. Discussed the case with Oncology and Dr. Martin and will continue to decrease the dose of prednisone and watch his platelets. If the platelets fall then IV IG is considered. -acute kidney injury and hyperkalemia. Patient has a single kidney and it is improving. No Lupillo inhibitors to be given. 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 For taping the prednisone per Oncology and GI. -volume overload: Receiving lb human and previous Lasix. Now on p.o. Lasix and started Aldactone. -squamous cell carcinoma of the mouth: HANDBAG FRAMES INSPECTOR is following -urinary retention: We are following bladder volumes with bladder scans and doing in-and out catheterization as needed. Patient is on Proscar and Flomax -metabolic encephalopathy: Resolved Plan: Continue current therapy and continue PT OT. Patient to be discharged in 1-2 days to rehab. Subjective: No specific complaints no chest pain shortness of breath he is moving his bowels and has a good appetite. No signs of active bleeding. He reports feeling weak and Adriana PT and OT. Objective: Vital Signs Temp Pulse Resp BP Pulse Ox 36.5 C 95 16 110/58 L 94 12/11/16 08:00 12/11/16 08:00 12/11/16 08:00 12/11/16 08:00 12/11/16 08:00 Laboratory Results 12/11/16 03:50 12/11/16 03:50 12/10/16 12/11/16 12/12/16 05:59 05:59 05:59 Intake Total 400 250 Output Total 1200 2650 225 Balance -800 -2400 -225 PT 18.6 SEC (12.0-15.0) H 12/06/16 05:45 INR 1.55 (0.83-1.16) H 12/06/16 05:45 - Time Spent With Patient Time Spent with Patient: greater than 35 minutes Time Spent with Patient: Greater than 35 minutes spent on this patients care, greater than 50% of time spent counseling, educating, and coordinating care regarding the above mentioned plan. - Pending Discharge Pending Discharge Within 24 Hours: No Pending Discharge Within 48 Hours: Yes Pending Discharge Date: 12/13/16 Pending Discharge Time: 11:00 - Physical Exam Constitutional: no apparent distress Eyes: PERRL, anicteric sclera Ears, Nose, Mouth, Throat: moist mucous membranes, hearing normal Cardiovascular: regular rate and rhythym, no murmur, rub, or gallop Respiratory: no respiratory distress, no rales or rhonchi, clear to auscultation Gastrointestinal: normoactive bowel sounds, soft, non-tender abdomen, no palpable masses Genitourinary: no bladder fullness Skin: warm Musculoskeletal: generalized weakness Neurologic: AAOx3, CN II-XII Intact Psychiatric: interacting appropriately ICD10 Worksheet Patient Problems: Problems Problem Status Onset Dehydration Acute Chest pain Acute Renal cell carcinoma Acute Upper GI bleed Acute Hemorrhagic shock Acute
--- NOTE | 2016-12-11 14:16 | SOAPPROG ---
SOAP Progress Note Assessment/Plan: E&M for renal cell cancer * UGI Bleed: secondary to two DU's, Hct stable. * Thrombocytopenia: unclear etiology. Platelets started dropping 11/28. Autoimmune mediated vs. hepatic failure. Received two doses of nivolumab 11/01 and 11/15. 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 Platelets started dropping as prednisone tapered but steroid also causing myopathy. Transfuse for bleeding. Can also try trial of IVIg if drops more. Currently the platelets have been stable last couple days so will hold off transfusion with platelets at 49K. * Metastatic renal cell: oligometastatic with disease in known metastasis in left iliac bone. * Abnormal LFTs: felt to be secondary to Votrient. T.Bili improving. 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 Tapering steroids and currently down to 30 mg. Planning rehab. Subjective: Small amount of dark blood with bm but no other bleeding. Objective: Vital Signs Temp Pulse Resp BP Pulse Ox 36.5 C 95 16 110/58 L 94 12/11/16 08:00 12/11/16 08:00 12/11/16 08:00 12/11/16 08:00 12/11/16 08:00 Laboratory Results 12/11/16 03:50 12/11/16 03:50 12/10/16 12/11/16 12/12/16 05:59 05:59 05:59 Intake Total 400 250 Output Total 1200 2650 225 Balance -800 -2400 -225 PT 18.6 SEC (12.0-15.0) H 12/06/16 05:45 INR 1.55 (0.83-1.16) H 12/06/16 05:45 Laboratory Tests 12/10/16 12/11/16 06:00 03:50 Hgb 9.4 L 9.5 L Plt Count 48 L 49 L Laboratory Tests 12/09/16 12/10/16 12/11/16 04:30 06:00 03:50 Total Bilirubin 10.2 H 9.8 H 8.9 H AST 59 62 H 65 H ALT 99 H 107 H 122 H Alkaline Phosphatase 246 H 314 H 362 H Physical Exam - Physical Exam General Appearance: no apparent distress EENT: scleral icterus (R), scleral icterus (L) Respiratory: lungs clear Cardiac/Chest: regular rate, rhythm Abdomen: soft, distended Skin: jaundice ICD10 Worksheet Patient Problems: Problems Problem Status Onset Hemorrhagic shock Acute Upper GI bleed Acute Chest pain Acute Dehydration Acute Renal cell carcinoma Acute
[2016-12-11] MEDS: FINASTERIDE 5 MG TAB PO SCH (20:43)
[2016-12-12] MEDS ORDERED: FLU VACC QS 2017-18 (3YR+)/PF 0.5 ML SYR (FLUARIX QUAD) IM ONE ×2 (01:32→05:10)
[2016-12-12 04:21] LABS: % IMMATURE GRANULYOCYTES 1.9 % (0.0-1.1); ABSOLUTE IMMATURE GRANULOCYTES 0.14 10^3/uL (0.00-0.10); ABSOLUTE NRBC COUNT 0.02 10^3/uL (0-0.01); ADD DIFF? NO; ADD MORPH? YES; ADD SCAN? NO; ATYPICAL LYMPHOCYTE FLAG 0 (0-99); FRAGMENT RBC FLAG 20 (0-99); HEMATOCRIT 27.2 % (40.0-51.0); HEMOGLOBIN 9.4 g/dL (13.7-17.5); LEFT SHIFT FLG 20 (0-99); LIPEMIA HEMOLYSIS FLAG 90 (0-99); MEAN CELL HEMOGLOBIN 31.9 pg (27.9-34.1); MEAN CELL HEMOGLOBIN CONCENTR. 34.6 g/dL (32.4-36.7); MEAN CELL VOLUME 92.2 fL (81.5-99.8); MEAN PLATELET VOLUME 11.6 fL (8.7-11.7); NRBC-AUTO% 0.3 % (0.0-0.2); PLATELET CLUMPS FLAG 10 (0-99); RED BLOOD CELL COUNT 2.95 10^6/uL (4.40-6.38)
[2016-12-12 04:22] LABS: PLATELET COUNT 45 10^3/uL (150-400); RED CELL DISTRIBUTION WIDTH 23.4 % (11.5-15.2)
[2016-12-12 04:39] LABS: ALANINE AMINOTRANSFERASE 120 IU/L (21-72); ALBUMIN 2.6 g/dL (3.5-5.0); ALKALINE PHOSPHATASE 345 IU/L (38-126); ANION GAP 6 mEq/L (8-16); ASPARTATE AMINOTRANSFERASE 63 IU/L (17-59); BILIRUBIN,TOTAL 8.1 mg/dL (0.1-1.4); CARBON DIOXIDE 26 mEq/l (22-31); CHLORIDE 98 mEq/L (97-110); CREATININE 1.2 mg/dL (0.7-1.3); GLOMERULAR FILTRATION RATE 58; GLUCOSE 120 mg/dL (70-100); POTASSIUM 4.4 mEq/L (3.5-5.2); SODIUM 130 mEq/L (134-144); TOTAL PROTEIN 4.9 g/dL (6.3-8.2)
[2016-12-12 04:42] LABS: MACROCYTES 1+; MICROCYTES 1+
[2016-12-12 04:43] LABS: HYPOCHROMIA 1+; PLATELET ESTIMATE DECREASED (ADEQ); POLYCHROMASIA 1+; TARGET CELLS 1+
[2016-12-12 04:45] LABS: BILIRUBIN-UNCONJUGATED 2.1 mg/dL (0.0-1.1)
--- NOTE | 2016-12-12 09:22 | HOSPPROG ---
Hospitalist Progress Note Assessment/Plan: Status post an upper GI bleed status post EGD without intervention. Patient is known thrombocytopenia which today has been stable at approximately 47,000. Patient new to me today. -acute upper GI bleed, to duodenal ulcers, status post EGD without intervention.. He will continue on PPI twice daily dosage. He has been on high -dose steroids. -ABLA with hypovolemic shock: Status post 3 units PRBC, now stable -thrombocytopenia: Possible ITP. He has been on steroids and now platelets are stable at approximately 47,000. Discussed the case with Oncology and Dr. Martin and will continue to decrease the dose of prednisone and watch his platelets. If the platelets fall then IV IG is considered. -acute kidney injury and hyperkalemia. Patient has a single kidney and it is improving. No Lupillo inhibitors to be given. 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 For taping the prednisone per Oncology and GI. -volume overload: Receiving lb human and previous Lasix. Now on p.o. Lasix and started Aldactone. -squamous cell carcinoma of the mouth: GENERAL ASSEMBLER is following -urinary retention: We are following bladder volumes with bladder scans and doing in-and out catheterization as needed. Patient is on Proscar and Flomax -metabolic encephalopathy: Resolved Plan: Continue current therapy and continue PT OT. Patient to be discharged in 1-2 days to rehab. discussed with Oncology; labs reviewed. Doubt this is autoimmuce ITP; more marrow recovery from chemotherapy and liver disease Subjective: NO complaints Objective: Vital Signs Temp Pulse Resp BP Pulse Ox 36.4 C 100 16 100/58 L 95 12/12/16 07:43 12/12/16 07:43 12/12/16 07:43 12/12/16 07:43 12/12/16 07:43 Laboratory Results 12/12/16 04:15 12/12/16 04:15 12/11/16 12/12/16 12/13/16 05:59 05:59 05:59 Intake Total 250 500 300 Output Total 2650 2600 150 Balance -2400 -2100 150 PT 18.6 SEC (12.0-15.0) H 12/06/16 05:45 INR 1.55 (0.83-1.16) H 12/06/16 05:45 Laboratory Tests 12/04/16 12/05/1612/06/17 16:20 05:30 05:45 WBC Hgb Plt Count INR 1.59 H 1.56 H 1.55 H Sodium 12/08/16 12/08/16 12/09/16 05:40 12:56 04:30 WBC Hgb 8.7 L 9.3 L 8.7 L Plt Count 59 L 64 L 50 L INR Sodium 12/10/16 12/10/16 12/11/16 06:00 06:00 03:50 WBC Hgb 9.4 L Plt Count 48 L INR Sodium 131 L 132 L 12/11/16 12/12/16 12/12/16 03:50 04:15 04:15 WBC 7.49 Hgb 9.5 L 9.4 L Plt Count 49 L 45 L INR Sodium 130 L - Physical Exam Constitutional: no apparent distress Eyes: PERRL Ears, Nose, Mouth, Throat: moist mucous membranes Cardiovascular: regular rate and rhythym, no murmur, rub, or gallop Respiratory: no respiratory distress, no rales or rhonchi, clear to auscultation Gastrointestinal: normoactive bowel sounds, soft, non-tender abdomen, no palpable masses Genitourinary: no bladder fullness Skin: warm Musculoskeletal: generalized weakness Neurologic: AAOx3, CN II-XII Intact Psychiatric: interacting appropriately ICD10 Worksheet Patient Problems: Problems Problem Status Onset Dehydration Acute Chest pain Acute Renal cell carcinoma Acute Upper GI bleed Acute Hemorrhagic shock Acute
[2016-12-12] MEDS: FUROSEMIDE 20 MG TAB PO SCH (09:36)
[2016-12-12] MEDS: SPIRONOLACTONE 25 MG TAB PO SCH (09:36)
[2016-12-12] MEDS: PANTOPRAZOLE SODIUM 40 MG TAB PO SCH ×2 (09:36→20:37)
[2016-12-12] MEDS: predniSONE 20 MG TAB PO SCH (09:36)
[2016-12-12] MEDS: TAMSULOSIN HCL 0.4 MG CAP PO SCH (09:37)
[2016-12-12] MEDS: CETIRIZINE 10 MG TAB PO SCH (11:47)
[2016-12-12] MEDS: ALLOPURINOL 100 MG TAB PO SCH ×2 (11:47→20:36)
--- NOTE | 2016-12-12 13:04 | SOAPPROG ---
SOAP Progress Note Assessment/Plan: Assessment: 1.) Metastatic Renal Cell Carcinoma, most recently on Pazopanib with liver dysfunction as a result. LFTs starting to show improvement. Discussed concerns about future strategy and tx with patient and his daughter, Jelena at the bedside this AM. To have PET/CT as outpt. to assess response and to set new baseline for next potential therapy. 2.) DU bleed x 2 sites- will need to follow H/H and GI output. 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 4.) Thrombocytopenia, likely due to effect of Kidney cancer, its treatment and Liver failure. PLT appears relatively stable. Doubt ITP, and will plan to taper Prednisone and observe. 5.) Discharge planning: given severe DU bleed recently and low PLT count and Hematochezia yesterday, I think we should monitor at least another 48 hours before transfer to a Rehab facility. Pt. and daughter in agreement. Plan: See above discussion. 12/12/16 13:04 Subjective: Had some hematochezia yesterday x 1 Still quite weak in attempt to get out of bed. Has been quite sedentary past 24 hours. No other bleeding sx. Objective: VSS, Afebrile, as noted here. HEENT- anicteric, pale, no oral thrush Neck - supple Chest- clear anteriorly and posteriorly CVS- RSR, no extra HS, has borderline ST, pulse about 100 ABD- soft, NT, BS+ EXT- no change in edema in LE, slightly more obvious in R > L LE. Labs as noted here: Vital Signs Temp Pulse Resp BP Pulse Ox 36.4 C 100 16 100/58 L 95 12/12/16 07:43 12/12/16 07:43 12/12/16 07:43 12/12/16 07:43 12/12/16 07:43 Laboratory Results 12/12/16 04:15 12/12/16 04:15 12/11/16 12/12/16 12/13/16 05:59 05:59 05:59 Intake Total 250 500 300 Output Total 2650 2600 150 Balance -2400 -2100 150 PT 18.6 SEC (12.0-15.0) H 12/06/16 05:45 INR 1.55 (0.83-1.16) H 12/06/16 05:45 ICD10 Worksheet Patient Problems: Problems Problem Status Onset Hemorrhagic shock Acute Upper GI bleed Acute Chest pain Acute Dehydration Acute Renal cell carcinoma Acute
[2016-12-12] MEDS: FINASTERIDE 5 MG TAB PO SCH (20:37)
[2016-12-13 05:44] LABS: % IMMATURE GRANULYOCYTES 2.5 % (0.0-1.1); ABSOLUTE IMMATURE GRANULOCYTES 0.15 10^3/uL (0.00-0.10); ABSOLUTE NRBC COUNT 0.03 10^3/uL (0-0.01); ADD DIFF? NO; ADD MORPH? YES; ADD SCAN? NO; ATYPICAL LYMPHOCYTE FLAG 0 (0-99); FRAGMENT RBC FLAG 20 (0-99); HEMATOCRIT 27.4 % (40.0-51.0); HEMOGLOBIN 9.4 g/dL (13.7-17.5); LEFT SHIFT FLG 30 (0-99); LIPEMIA HEMOLYSIS FLAG 90 (0-99); MEAN CELL HEMOGLOBIN 31.8 pg (27.9-34.1); MEAN CELL HEMOGLOBIN CONCENTR. 34.3 g/dL (32.4-36.7); MEAN CELL VOLUME 92.6 fL (81.5-99.8); MEAN PLATELET VOLUME 10.8 fL (8.7-11.7); NRBC-AUTO% 0.5 % (0.0-0.2); PLATELET CLUMPS FLAG 0 (0-99); PLATELET COUNT 52 10^3/uL (150-400); RED BLOOD CELL COUNT 2.96 10^6/uL (4.40-6.38)
[2016-12-13 05:46] LABS: RED CELL DISTRIBUTION WIDTH 23.2 % (11.5-15.2)
[2016-12-13 06:07] LABS: ALANINE AMINOTRANSFERASE 131 IU/L (21-72); ALBUMIN 2.7 g/dL (3.5-5.0); ALKALINE PHOSPHATASE 337 IU/L (38-126); ANION GAP 11 mEq/L (8-16); ASPARTATE AMINOTRANSFERASE 66 IU/L (17-59); BILIRUBIN,TOTAL 7.3 mg/dL (0.1-1.4); CALCIUM 8.7 mg/dL (8.5-10.4); CARBON DIOXIDE 23 mEq/l (22-31); CHLORIDE 98 mEq/L (97-110); CREATININE 1.1 mg/dL (0.7-1.3); GLOMERULAR FILTRATION RATE > 60; GLUCOSE 150 mg/dL (70-100); POTASSIUM 4.2 mEq/L (3.5-5.2); SODIUM 132 mEq/L (134-144); TOTAL PROTEIN 4.8 g/dL (6.3-8.2)
[2016-12-13 06:15] LABS: BILIRUBIN-CONJUGATED 5.5 mg/dL (0.0-0.5); BILIRUBIN-UNCONJUGATED 1.8 mg/dL (0.0-1.1)
[2016-12-13 06:34] LABS: PLATELET ESTIMATE DECREASED (ADEQ)
[2016-12-13 06:40] LABS: MACROCYTES 1+; POLYCHROMASIA 1+; TARGET CELLS 1+
[2016-12-13 06:42] LABS: HYPOCHROMIA 1+
[2016-12-13] MEDS: predniSONE 20 MG TAB PO SCH (09:03)
[2016-12-13] MEDS: TAMSULOSIN HCL 0.4 MG CAP PO SCH (09:04)
[2016-12-13] MEDS: PANTOPRAZOLE SODIUM 40 MG TAB PO SCH ×2 (09:05→20:53)
[2016-12-13] MEDS: FUROSEMIDE 20 MG TAB PO SCH (09:05)
[2016-12-13] MEDS: SPIRONOLACTONE 25 MG TAB PO SCH (09:06)
--- NOTE | 2016-12-13 11:54 | HOSPPROG ---
Hospitalist Progress Note Assessment/Plan: Status post an upper GI bleed status post EGD without intervention. Patient is known thrombocytopenia which today has been stable at approximately 47,000. Patient new to me today. -acute upper GI bleed, to duodenal ulcers, status post EGD without intervention.. He will continue on PPI twice daily dosage. He has been on high -dose steroids. -ABLA with hypovolemic shock: Status post 3 units PRBC, now stable -Metastatic Renal Cell Carcinoma, most recently on Pazopanib with liver dysfunction as a result. -thrombocytopenia: He has been on steroids and now platelets are stable at approximately 47,000. Discussed the case with Oncology and will continue to decrease the dose of prednisone and watch his platelets. If the platelets fall then IV IG is considered. 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 Patient has a single kidney and it is improving. No Lupillo inhibitors to be given. 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 Bilirubin falling slowly yet AST and ALT rising as taper the steroids. -volume overload: Receiving lb human and previous Lasix. Now on p.o. Lasix and started Aldactone. 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 Patient is on Proscar and Flomax -metabolic encephalopathy: Resolved Plan: Continue current therapy and continue PT OT. Patient to be discharged in 1-2 days to [facility] not approved. Discussed future care with patient and daughter Jelena. Plan to have outpatient Pet Scan for assesment of response to chem. discussed with Oncology; labs reviewed. Doubt this is autoimmuce ITP; more marrow recovery from chemotherapy and liver disease. Subjective: feeling weak and tired Had one stool, brown with blood streaks. Feels sob with exertion. no chest pain or abdominal pain Objective: Vital Signs Temp Pulse Resp BP Pulse Ox 36.3 C 96 17 108/59 L 94 12/13/16 08:00 12/13/16 08:00 12/13/16 08:00 12/13/16 08:00 12/13/16 08:00 Laboratory Results 12/13/16 05:28 12/13/16 05:28 12/12/16 12/13/16 12/14/16 05:59 05:59 05:59 Intake Total 500 1200 Output Total 2599 Balance -2100 -825 -220 PT 18.6 SEC (12.0-15.0) H 12/06/16 05:45 INR 1.55 (0.83-1.16) H 12/06/16 05:45 - Time Spent With Patient Time Spent with Patient: greater than 35 minutes Time Spent with Patient: Greater than 35 minutes spent on this patients care, greater than 50% of time spent counseling, educating, and coordinating care regarding the above mentioned plan. - Pending Discharge Pending Discharge Within 24 Hours: No Pending Discharge Within 48 Hours: No - Physical Exam Constitutional: no apparent distress, chronically ill appearing, other (weak appearing) Eyes: PERRL, icteric sclera Ears, Nose, Mouth, Throat: moist mucous membranes, hearing normal Cardiovascular: regular rate and rhythym, systolic murmur, tachycardia, other ( loud grade 3/6 THAD over apex to lsb and base) Respiratory: no respiratory distress, reduced air movement, inspiratory crackles , rhonchi Gastrointestinal: normoactive bowel sounds, soft, non-tender abdomen, no palpable masses Genitourinary: no bladder fullness Skin: warm Musculoskeletal: generalized weakness Psychiatric: interacting appropriately ICD10 Worksheet Patient Problems: Problems Problem Status Onset Dehydration Acute Chest pain Acute Renal cell carcinoma Acute Upper GI bleed Acute Hemorrhagic shock Acute
[2016-12-13] MEDS ORDERED: FUROSEMIDE 20 MG/2 ML VIAL IVP ONE (12:04)
--- NOTE | 2016-12-13 13:08 | SOAPPROG ---
SOAP Progress Note Assessment/Plan: Assessment: 1.) Metastatic Renal Cell Carcinoma, most recently on Pazopanib with liver dysfunction as a result. LFTs starting to show improvement. Discussed concerns about future strategy and tx with patient. To have PET/CT as outpt. to assess response and to set new baseline for next potential therapy. 2.) DU bleed x 2 sites- will need to follow H/H and GI output. 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 4.) Thrombocytopenia, likely due to effect of Kidney cancer, its treatment and Liver failure. PLT appears relatively stable. Doubt ITP, and will plan to taper Prednisone and observe. 5.) Discharge planning: given severe DU bleed recently and low PLT count and Hematochezia yesterday, I think we should monitor at least another 48 hours before transfer to a Rehab facility. Pt. and daughter in agreement. Plan: See above discussion. Follow H/H and stool/melena output and mobilize patient as feasible. Delay transfer to Rehab center until pt. is stable from standpoint of his GIB issues. 12/13/16 13:08 Subjective: still with a few dark, formed stools as of this AM. No N/V Objective: VSS, Afebrile as noted here. HEENT- mildly icteric, no oral lesions Neck- supple Chest clear bilat. CVS- RSR, no extra HS ABD- soft, NT, BS+ EXT- symmetric 1 + edema, skin jaundiced, no ecchymoses or petechiae Labs as noted here. Hgb and PLT show slight improvement Also: T. bili 7.3, alk phos 337, AST/ALT 66/131 Stools Hemoccult (+) Vital Signs Temp Pulse Resp BP Pulse Ox 36.3 C 96 17 108/59 L 94 12/13/16 08:00 12/13/16 08:00 12/13/16 08:00 12/13/16 08:00 12/13/16 08:00 Laboratory Results 12/13/16 05:28 12/13/16 05:28 12/12/16 12/13/16 12/14/16 05:59 05:59 05:59 Intake Total 500 1200 Output Total 2600 2025 220 Balance -2100 -825 -220 PT 18.6 SEC (12.0-15.0) H 09/26/17 05:45 INR 1.55 (0.83-1.16) H 12/06/16 05:45 ICD10 Worksheet Patient Problems: Problems Problem Status Onset Hemorrhagic shock Acute Upper GI bleed Acute Chest pain Acute Dehydration Acute Renal cell carcinoma Acute
[2016-12-13] MEDS: CETIRIZINE 10 MG TAB PO SCH (13:25)
[2016-12-13] MEDS: ALLOPURINOL 100 MG TAB PO SCH ×2 (13:25→20:53)
--- NOTE | 2016-12-13 17:26 | ASMTCMCOM ---
CM Note CM Note Notes: patient here with upper GI bleed who continues appears to still have some bleeding. According to hospitalist anticipate a couple more days in the hospital and thehn will discharge to [facility]. [facility] aware of the delay of discharge from anticipated day. Case management will follow. Date Signed: 12/13/2016 05:25 PM Electronically Signed By:KIERSTEN Boykin
[2016-12-13] MEDS: FINASTERIDE 5 MG TAB PO SCH (20:53)
[2016-12-14 06:39] LABS: % IMMATURE GRANULYOCYTES 2.7 % (0.0-1.1); ABSOLUTE IMMATURE GRANULOCYTES 0.23 10^3/uL (0.00-0.10); ABSOLUTE NRBC COUNT 0.07 10^3/uL (0-0.01); ADD DIFF? NO; ADD MORPH? YES; ADD SCAN? NO; ATYPICAL LYMPHOCYTE FLAG 10 (0-99); FRAGMENT RBC FLAG 20 (0-99); HEMATOCRIT 30.3 % (40.0-51.0); HEMOGLOBIN 10.3 g/dL (13.7-17.5); LEFT SHIFT FLG 30 (0-99); LIPEMIA HEMOLYSIS FLAG 90 (0-99); MEAN CELL HEMOGLOBIN 31.6 pg (27.9-34.1); MEAN CELL VOLUME 92.9 fL (81.5-99.8); MEAN PLATELET VOLUME 12.3 fL (8.7-11.7); NRBC-AUTO% 0.8 % (0.0-0.2); PLATELET CLUMPS FLAG 10 (0-99); PLATELET COUNT 82 10^3/uL (150-400); RED BLOOD CELL COUNT 3.26 10^6/uL (4.40-6.38)
[2016-12-14 06:46] LABS: RED CELL DISTRIBUTION WIDTH 23.3 % (11.5-15.2)
[2016-12-14 07:09] LABS: ALANINE AMINOTRANSFERASE 147 IU/L (21-72); ALBUMIN 2.9 g/dL (3.5-5.0); ALKALINE PHOSPHATASE 375 IU/L (38-126); ANION GAP 10 mEq/L (8-16); ASPARTATE AMINOTRANSFERASE 79 IU/L (17-59); BILIRUBIN,TOTAL 7.1 mg/dL (0.1-1.4); CALCIUM 9.2 mg/dL (8.5-10.4); CARBON DIOXIDE 24 mEq/l (22-31); CHLORIDE 96 mEq/L (97-110); CREATININE 1.2 mg/dL (0.7-1.3); GLOMERULAR FILTRATION RATE 58; GLUCOSE 137 mg/dL (70-100); POTASSIUM 4.6 mEq/L (3.5-5.2); SODIUM 130 mEq/L (134-144); TOTAL PROTEIN 5.1 g/dL (6.3-8.2)
[2016-12-14 07:22] LABS: BILIRUBIN-CONJUGATED 5.3 mg/dL (0.0-0.5); BILIRUBIN-UNCONJUGATED 1.8 mg/dL (0.0-1.1)
[2016-12-14 07:44] LABS: PLATELET ESTIMATE DECREASED (ADEQ)
[2016-12-14 07:45] LABS: ELLIPTOCYTES 1+; MACROCYTES 1+; POLYCHROMASIA 1+; TARGET CELLS 1+
[2016-12-14] MEDS: TAMSULOSIN HCL 0.4 MG CAP PO SCH (10:16)
[2016-12-14] MEDS: CETIRIZINE 10 MG TAB PO SCH (10:16)
[2016-12-14] MEDS: ALLOPURINOL 100 MG TAB PO SCH ×2 (10:17→21:34)
[2016-12-14] MEDS: predniSONE 20 MG TAB PO SCH (10:17)
[2016-12-14] MEDS: SPIRONOLACTONE 25 MG TAB PO SCH (10:17)
[2016-12-14] MEDS: PANTOPRAZOLE SODIUM 40 MG TAB PO SCH ×2 (10:17→21:34)
[2016-12-14] MEDS: FUROSEMIDE 20 MG TAB PO SCH (10:20)
--- NOTE | 2016-12-14 12:28 | SOAPPROG ---
SOAP Progress Note Assessment/Plan: Assessment: 1.) Metastatic Renal Cell Carcinoma, most recently on Pazopanib with liver dysfunction as a result. LFTs starting to show improvement. Discussed concerns about future strategy and tx with patient. To have PET/CT as outpt. to assess response and to set new baseline for next potential therapy. 2.) DU bleed x 2 sites- will need to follow H/H and GI output. Still with melena in stools as of Wed. AM, 12/14. 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 4.) Thrombocytopenia, likely due to effect of Kidney cancer, its treatment and Liver failure. PLT now improved , up to 82 today.. Doubt ITP, and will plan to taper Prednisone and observe. 5.) Discharge planning: given severe DU bleed recently and low PLT count and Hematochezia yesterday, I think we should monitor at least another 48 hours before transfer to a Rehab facility. Pt. and daughter in agreement. Plan: See above discussion. Follow H/H and stool/melena output and mobilize patient as feasible. Delay transfer to Rehab center until pt. is stable from standpoint of his GIB issues. I encouraged participation in OT/PT as much as is feasible to promote success at Rehab facility later. 12/14/16 12:28 Subjective: Feeling somewhat better, with improved oral intake. Had a stool that looked melanotic and had trace hematochezia. No emesis or hemetemesis Doing better with PT/OT in past day. Objective: Daughter at bedside. VSS, afebrile as noted here HEENT- still icteric/jaundiced. No oral lesions Neck - supple Chest- clear CVS- borderline ST, RR, no S3, S4 ABD- soft, NT, BS+, without HSM EXT- decreased LE edema, skin + Jaundice Labs as noted here: PLT up to 82, Hgb up to 10.3 T. Bili 7.1, Alk Phos 375, AST/ALT 79/147 Vital Signs Temp Pulse Resp BP Pulse Ox 36.4 C 88 16 104/62 94 12/14/16 07:24 12/14/16 07:24 12/14/16 07:24 12/14/16 07:24 12/14/16 07:24 Laboratory Results 12/14/16 06:30 12/14/16 06:30 12/13/16 12/14/16 12/15/16 05:59 05:59 05:59 Intake Total 1200 0 Output Total 20240 180 Balance -825 -2360 -180 PT 18.6 SEC (12.0-15.0) H 12/06/16 05:45 INR 1.55 (0.83-1.16) H 12/06/16 05:45 ICD10 Worksheet Patient Problems: Problems Problem Status Onset Hemorrhagic shock Acute Upper GI bleed Acute Chest pain Acute Dehydration Acute Renal cell carcinoma Acute
--- NOTE | 2016-12-14 16:22 | HOSPPROG ---
Hospitalist Progress Note Assessment/Plan: Status post an upper GI bleed status post EGD without intervention. -acute upper GI bleed, to duodenal ulcers, status post EGD without intervention.. He will continue on PPI twice daily dosage. He has been on high -dose steroids. -ABLA with hypovolemic shock: Status post 3 units PRBC, now stable. Hgb today is 10. without signs of bleeding. Stools have been guaiac +, may represent prior bleeding -Metastatic Renal Cell Carcinoma, most recently on Pazopanib with liver dysfunction as a result. -thrombocytopenia: He has been on steroids and now platelets is rising, today 82,000. Discussed the case with Oncology and will continue to decrease the dose of prednisone and watch his platelets. If the platelets fall then IV IG is considered. 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 Patient has a single kidney and it is improving. No Lupillo inhibitors to be given. 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 Bilirubin falling slowly yet AST and ALT rising as taper the steroids. -volume overload: Now on p.o. Lasix and started Aldactone. -squamous cell carcinoma of the mouth: SUPPORT SPECIALIST is following -urinary retention: We are following bladder volumes with bladder scans and doing in-and out catheterization as needed. Patient is on Proscar and Flomax -metabolic encephalopathy: Resolved Plan: Continue current therapy and continue PT OT. Patient to be discharged in 1-2 days to [facility] not approved. We are assuring that he does not rebleed by monitoring the next 2 days Discussed future care with patient and daughter Jelena. discussed with Oncology; labs reviewed. Doubt this is autoimmuce ITP; more marrow recovery from chemotherapy and liver disease. Pet scan as outpatient Subjective: no complaints. Feels weak. Able to walk to bathroom with assistance. Stools are Guaiac + Objective: Vital Signs Temp Pulse Resp BP Pulse Ox 36.4 C 102 H 16 122/58 H 96 12/14/16 14:54 12/14/16 14:54 12/14/16 14:54 12/14/16 14:54 12/14/16 14:54 Laboratory Results 12/14/16 06:30 12/14/16 06:30 12/13/16 12/14/16 12/15/16 05:59 05:59 05:59 Intake Total 1200 0 Output Total 2024 4550 330 Balance -825 -2360 -330 PT 18.6 SEC (12.0-15.0) H 12/06/16 05:45 INR 1.55 (0.83-1.16) H 12/06/16 05:45 Laboratory Tests 12/08/16 12/10/16 12/11/16 05:40 06:00 03:50 Hgb 9.4 L 9.5 L Plt Count Sodium 139 AST 57 ALT 88 H Albumin 3.0 L 12/12/16 12/13/16 12/13/16 04:15 05:28 05:28 Hgb 9.4 L 9.4 L Plt Count 45 L 52 L Sodium 132 L AST 66 H ALT 131 H Albumin 2.7 L 12/14/16 06:30 Hgb 10.3 L Plt Count 82 L Sodium AST ALT Albumin - Time Spent With Patient Time Spent with Patient: greater than 35 minutes Time Spent with Patient: Greater than 35 minutes spent on this patients care, greater than 50% of time spent counseling, educating, and coordinating care regarding the above mentioned plan. - Pending Discharge Pending Discharge Within 24 Hours: No Pending Discharge Within 48 Hours: Yes Pending Discharge Date: 12/16/16 Pending Discharge Time: 11:00 - Physical Exam Constitutional: no apparent distress Eyes: PERRL Ears, Nose, Mouth, Throat: moist mucous membranes, hearing normal Cardiovascular: regular rate and rhythym, systolic murmur Respiratory: no respiratory distress, no rales or rhonchi, clear to auscultation Gastrointestinal: normoactive bowel sounds, soft, non-tender abdomen, no palpable masses, other (guaiac + stool) Genitourinary: no bladder fullness Skin: warm Musculoskeletal: generalized weakness Psychiatric: interacting appropriately ICD10 Worksheet Patient Problems: Problems Problem Status Onset Hemorrhagic shock Acute Upper GI bleed Acute Chest pain Acute Dehydration Acute Renal cell carcinoma Acute
--- NOTE | 2016-12-14 16:56 | ASMTCMCOM ---
CM Note CM Note Notes: D/c plan remains [facility]. May need new insurance authorization for SNF due to lengthy admission. Please note: Monalisa from [facility] called today stating that Pt. was open w/ [facility] at time of admission. Date Signed: 12/14/2016 04:55 PM Electronically Signed By:Amie Moreira LCSW
[2016-12-14] MEDS: FINASTERIDE 5 MG TAB PO SCH (21:34)
[2016-12-15 04:41] LABS: % IMMATURE GRANULYOCYTES 2.9 % (0.0-1.1); ABSOLUTE IMMATURE GRANULOCYTES 0.18 10^3/uL (0.00-0.10); ABSOLUTE NRBC COUNT 0.03 10^3/uL (0-0.01); ADD DIFF? NO; ADD MORPH? YES; ADD SCAN? NO; ATYPICAL LYMPHOCYTE FLAG 0 (0-99); FRAGMENT RBC FLAG 20 (0-99); HEMATOCRIT 29.9 % (40.0-51.0); HEMOGLOBIN 10.2 g/dL (13.7-17.5); LEFT SHIFT FLG 40 (0-99); LIPEMIA HEMOLYSIS FLAG 90 (0-99); MEAN CELL HEMOGLOBIN 31.8 pg (27.9-34.1); MEAN CELL HEMOGLOBIN CONCENTR. 34.1 g/dL (32.4-36.7); MEAN CELL VOLUME 93.1 fL (81.5-99.8); MEAN PLATELET VOLUME 11.1 fL (8.7-11.7); NRBC-AUTO% 0.5 % (0.0-0.2); PLATELET CLUMPS FLAG 10 (0-99); PLATELET COUNT 64 10^3/uL (150-400); RED BLOOD CELL COUNT 3.21 10^6/uL (4.40-6.38)
[2016-12-15 04:53] LABS: ANION GAP 9 mEq/L (8-16); CALCIUM 9.1 mg/dL (8.5-10.4); CARBON DIOXIDE 25 mEq/l (22-31); CHLORIDE 94 mEq/L (97-110); CREATININE 1.2 mg/dL (0.7-1.3); GLOMERULAR FILTRATION RATE 58; GLUCOSE 131 mg/dL (70-100); POTASSIUM 4.4 mEq/L (3.5-5.2); SODIUM 128 mEq/L (134-144)
[2016-12-15 05:02] LABS: ELLIPTOCYTES 1+; MACROCYTES 1+; PLATELET ESTIMATE DECREASED (ADEQ)
[2016-12-15] MEDS: TAMSULOSIN HCL 0.4 MG CAP PO SCH (08:35)
[2016-12-15] MEDS: predniSONE 20 MG TAB PO SCH (08:35)
[2016-12-15] MEDS: PANTOPRAZOLE SODIUM 40 MG TAB PO SCH ×2 (08:35→20:36)
[2016-12-15] MEDS: FUROSEMIDE 20 MG TAB PO SCH (08:35)
[2016-12-15] MEDS: SPIRONOLACTONE 25 MG TAB PO SCH (08:36)
[2016-12-15] MEDS: ALLOPURINOL 100 MG TAB PO SCH ×2 (12:52→20:36)
[2016-12-15] MEDS: CETIRIZINE 10 MG TAB PO SCH (12:52)
--- NOTE | 2016-12-15 13:29 | HOSPPROG ---
Hospitalist Progress Note Assessment/Plan: #Acute blood loss anemia: due to duodenal ulcers seen on EGD 12/06. Negative H pylori. H/H stable #Hypovolemic shock: resolved. Due to above. H/H stable #Duodenal ulcer: no intervention. Decrease pred. BID PPI #Orthostatic hypotension: dizzy today. IVFs, hold lasix. H/H stable #Thrombocytopenia: stable #Steroid myopathy: pred 10mg qod starting Sat #Metastatic RCC: recently on Pazopanib c/w liver dysfunction. PET/CT outpatient #Autoimmune hepatitis: taper pred. #Severe deconditioning: SNF at [place] #Diet: low-fat #DVT ppx: SCDs #Disp: inpatient admission, requiring IVFs, serial labs Subjective: dizzy with standing, still feels weak Objective: Vital Signs Temp Pulse Resp BP Pulse Ox 36.4 C 97 16 104/58 L 94 12/15/16 07:46 12/15/16 07:46 12/15/16 07:46 12/15/16 12:38 12/15/16 07:46 Laboratory Results 12/15/16 04:30 12/15/16 04:30 12/14/16 12/15/16 12/16/16 05:59 05:59 05:59 Intake Total 0 100 Output Total 0 2009 100 Balance -2360 -1910 -100 PT 18.6 SEC (12.0-15.0) H 12/06/16 05:45 INR 1.55 (0.83-1.16) H 12/06/16 05:45 - Physical Exam Constitutional: no apparent distress Eyes: icteric sclera ICD10 Worksheet Patient Problems: Problems Problem Status Onset Hemorrhagic shock Acute Upper GI bleed Acute Chest pain Acute Dehydration Acute Renal cell carcinoma Acute
--- NOTE | 2016-12-15 14:30 | SOAPPROG ---
SOAP Progress Note Assessment/Plan: Assessment: 1.) Metastatic Renal Cell Carcinoma, most recently on Pazopanib with liver dysfunction as a result. LFTs starting to show improvement. Discussed concerns about future strategy and tx with patient. To have PET/CT as outpt. to assess response and to set new baseline for next potential therapy. 2.) DU bleed x 2 sites- will need to follow H/H and GI output. Still with melena in stools as of Wed. AM, 12/14. 3.) Steroid myopathy. Keep Prednisone at 10 mg QOD. 4.) Thrombocytopenia, likely due to effect of Kidney cancer, its treatment and Liver failure. PLT down a bit at 64 today.. Doubt ITP, and will plan to continue Prednisone and observe. 5.) Discharge planning: given severe DU bleed recently and low PLT count and Hematochezia yesterday, I think we should monitor at least another 48 hours before transfer to a Rehab facility. Pt. and daughter in agreement. 6.) Hyponatremia 7.) Pre-renal azotemia #'s: Agree with modest IV hydration with Na+ containing IVF and recheck labs 12/16. Plan: See above discussion. Follow H/H and stool/melena output and mobilize patient as feasible. Delay transfer to Rehab center until pt. is stable from standpoint of his GIB issues. I encouraged participation in OT/PT as much as is feasible to promote success at Rehab facility later. Will follow labs and VS and symptoms. 12/15/16 14:30 Subjective: States he is eating well, and had a single dark bowel movement in the past 24 hours. No new sx. Still lightheaded with ambulation. Objective: Sitting up in chair with visitor at the bedside. in NAD HEENT- anicteric, no oral lesions, no facial assymetry Neck- supple Chest- clear anteriorly/posteriorly CVS- RR, systolic flow murmur, no S3, S4 ABD- soft, NT, no mass or HSM BS+ EXT- no change in symmetric edema. Labs as below. Hgb 10.2, PLT 64, Na 128, BUN/Cr 56/1.2 Glu 131 Vital Signs Temp Pulse Resp BP Pulse Ox 36.4 C 97 16 104/58 L 94 12/15/16 07:46 12/15/16 07:46 12/15/16 07:46 12/15/16 12:38 12/15/16 07:46 Laboratory Results 12/15/16 04:30 12/15/16 04:30 12/14/16 12/15/16 12/16/16 05:59 05:59 05:59 Intake Total 0 100 Output Total 2360 2009 100 Balance -2360 -1910 -100 PT 18.6 SEC (12.0-15.0) H 12/06/16 05:45 INR 1.55 (0.83-1.16) H 12/06/16 05:45 ICD10 Worksheet Patient Problems: Problems Problem Status Onset Hemorrhagic shock Acute Upper GI bleed Acute Chest pain Acute Dehydration Acute Renal cell carcinoma Acute
--- NOTE | 2016-12-15 16:44 | ASMTCMCOM ---
CM Note CM Note Notes: Per MD note, plan is to monitor pt at least another 48 hrs due to his GIB. Updated Ellen at [facility]. She will need to get a new ins. auth. C/M to follow. Date Signed: 12/15/2016 04:43 PM Electronically Signed By:Savannah Dalton LCSW
[2016-12-15] MEDS: FINASTERIDE 5 MG TAB PO SCH (20:36)
[2016-12-16] MEDS: NS 1,000 ML IV SCH ×2 (00:06→11:54)
[2016-12-16 04:34] LABS: HEMATOCRIT 26.3 % (40.0-51.0); HEMOGLOBIN 9.1 g/dL (13.7-17.5); MEAN CELL HEMOGLOBIN 32.4 pg (27.9-34.1); MEAN CELL HEMOGLOBIN CONCENTR. 34.6 g/dL (32.4-36.7); MEAN CELL VOLUME 93.6 fL (81.5-99.8); RED BLOOD CELL COUNT 2.81 10^6/uL (4.40-6.38)
[2016-12-16 04:35] LABS: RED CELL DISTRIBUTION WIDTH 23.2 % (11.5-15.2)
[2016-12-16 04:59] LABS: ALANINE AMINOTRANSFERASE 114 IU/L (21-72); ALBUMIN 2.4 g/dL (3.5-5.0); ALKALINE PHOSPHATASE 305 IU/L (38-126); ANION GAP 8 mEq/L (8-16); ASPARTATE AMINOTRANSFERASE 56 IU/L (17-59); CALCIUM 8.3 mg/dL (8.5-10.4); CARBON DIOXIDE 26 mEq/l (22-31); CHLORIDE 96 mEq/L (97-110); CREATININE 1.1 mg/dL (0.7-1.3); GLOMERULAR FILTRATION RATE > 60; GLUCOSE 191 mg/dL (70-100); POTASSIUM 4.1 mEq/L (3.5-5.2); SODIUM 130 mEq/L (134-144); TOTAL PROTEIN 4.4 g/dL (6.3-8.2)
[2016-12-16 05:10] LABS: BILIRUBIN-CONJUGATED 3.7 mg/dL (0.0-0.5); BILIRUBIN-UNCONJUGATED 1.3 mg/dL (0.0-1.1)
[2016-12-16] MEDS: PANTOPRAZOLE SODIUM 40 MG TAB PO SCH ×2 (08:42→21:23)
[2016-12-16] MEDS: SPIRONOLACTONE 25 MG TAB PO SCH (08:42)
[2016-12-16] MEDS: TAMSULOSIN HCL 0.4 MG CAP PO SCH (08:42)
[2016-12-16] MEDS: ALLOPURINOL 100 MG TAB PO SCH ×2 (11:54→21:23)
[2016-12-16] MEDS: CETIRIZINE 10 MG TAB PO SCH (11:54)
--- NOTE | 2016-12-16 15:28 | SOAPPROG ---
SOAP Progress Note Assessment/Plan: Assessment: 1.) Metastatic Renal Cell Carcinoma, most recently on Pazopanib with liver dysfunction as a result. LFTs starting to show improvement. T. Bili down to 5.0 today. Discussed concerns about future strategy and tx with patient. To have PET/CT as outpt. to assess response and to set new baseline for next potential therapy. 2.) DU bleed x 2 sites- will need to follow H/H and GI output. Still with melena in stools as of Mon. AM, 12/16 3.) Steroid myopathy. Keep Prednisone at 10 mg QOD. 4.) Thrombocytopenia, likely due to effect of Kidney cancer, its treatment and Liver failure. PLT down a bit at 62 today.. Doubt ITP, and will plan to continue Prednisone and observe. 5.) Discharge planning: given severe DU bleed recently and low PLT count and Hematochezia yesterday, I think we should monitor at least another several days before transfer to a Rehab facility. Pt. and daughter in agreement. Pt became lightheaded attempting to walk with PT today. 6.) Hyponatremia 7.) Pre-renal azotemia #'s: Agree with modest IV hydration with Na+ containing IVF and recheck labs 12/16. Plan: See above discussion. Follow H/H and stool/melena output and mobilize patient as feasible. Delay transfer to Rehab center until pt. is stable from standpoint of his GIB issues. I encouraged participation in OT/PT as much as is feasible to promote success at Rehab facility later. Will follow labs and VS and symptoms. 12/16/16 15:28 Subjective: Attempted ambulation with PT today but became lightheaded. Had solid food x 2 today. Had 2 stools / dark in color Objective: As noted here: VSS, Afebrile HEENT- + icteric, and mildly jaundiced. Neck- supple Chest clear ant. CVS- RSR, no extra HS ABD- soft, NT BS+ EXT- 1+ Pretibial edema in both LE Labs as noted here: Hgb 9.1 today, 10.2 yesterday. PLT 62 " T.Bili5.0- improving NA 130 BUN/CR 54/1.1 Vital Signs Temp Pulse Resp BP Pulse Ox 35.3 C L 85 18 104/54 L 96 12/16/16 08:14 12/16/16 08:14 12/16/16 08:14 12/16/16 08:14 12/16/16 08:14 Laboratory Results 12/16/16 04:15 12/16/16 04:15 12/15/16 12/16/16 12/17/16 05:59 05:59 05:59 Intake Total 100 1879 Output Total 20096 Balance -2176 -591 PT 18.6 SEC (12.0-15.0) H 12/06/16 05:45 INR 1.55 (0.83-1.16) H 12/06/16 05:45 ICD10 Worksheet Patient Problems: Problems Problem Status Onset Hemorrhagic shock Acute Upper GI bleed Acute Chest pain Acute Dehydration Acute Renal cell carcinoma Acute
[2016-12-16] MEDS: SENNOSIDES 17.6 MG/10 ML UDL PO SCH (15:52)
[2016-12-16] MEDS: DOCUSATE SODIUM 100 MG CAP PO SCH ×2 (15:52→21:23)
--- NOTE | 2016-12-16 16:01 | ASMTCMCOM ---
CM Note CM Note Notes: Spoke with Ellen at [facility] today. Ellen states that [facility] will not be able to get a new ins. auth until Monday. C/M will continue to follow. Date Signed: 12/16/2016 04:00 PM Electronically Signed By:Savannah Dalton LCSW
[2016-12-16] MEDS ORDERED: NS 1,000 ML IV SCH (16:30)
--- NOTE | 2016-12-16 16:30 | HOSPPROG ---
Hospitalist Progress Note Assessment/Plan: #Acute blood loss anemia: due to duodenal ulcers seen on EGD 12/06. Negative H pylori. H/H stable. Reports brown stools today #Hypovolemic shock: resolved. Due to above. H/H stable #Duodenal ulcer: no intervention. Decrease pred. BID PPI #Orthostatic hypotension: improved with IVFs. Hold lasix. H/H stable #Thrombocytopenia: stable #Steroid myopathy: taper steroids, 10mg qod starting Sat #Metastatic RCC: recently on Pazopanib c/w liver dysfunction. PET/CT outpatient #Autoimmune hepatitis: taper pred. #Severe deconditioning: SNF at [place] #Diet: low-fat #DVT ppx: SCDs #Disp: inpatient admission, requiring IVFs, serial labs Subjective: brown stools today. Less dizziness today, but does get it if stands too quickly Objective: Vital Signs Temp Pulse Resp BP Pulse Ox 36.4 C 94 18 110/60 99 12/16/16 15:37 12/16/16 15:37 12/16/16 15:37 12/16/16 15:37 12/16/16 15:37 Laboratory Results 12/16/16 04:15 12/16/16 04:15 12/15/16 12/16/16 12/17/16 05:59 05:59 05:59 Intake Total 100 1879 Output Total 2009 2649 Balance -6540 -88 PT 18.6 SEC (12.0-15.0) H 12/06/16 05:45 INR 1.55 (0.83-1.16) H 12/06/16 05:45 - Physical Exam Constitutional: no apparent distress Eyes: icteric sclera Ears, Nose, Mouth, Throat: hearing normal Cardiovascular: regular rate and rhythym, No edema Respiratory: inspiratory crackles (BL lungs) Gastrointestinal: normoactive bowel sounds, soft, non-tender abdomen Genitourinary: no bladder fullness Skin: warm Musculoskeletal: full muscle strength Neurologic: AAOx3, CN II-XII Intact Psychiatric: interacting appropriately ICD10 Worksheet Patient Problems: Problems Problem Status Onset Hemorrhagic shock Acute Upper GI bleed Acute Chest pain Acute Dehydration Acute Renal cell carcinoma Acute
[2016-12-16] MEDS: FINASTERIDE 5 MG TAB PO SCH (21:23)
[2016-12-17 05:19] LABS: % IMMATURE GRANULYOCYTES 2.7 % (0.0-1.1); ABSOLUTE IMMATURE GRANULOCYTES 0.12 10^3/uL (0.00-0.10); ABSOLUTE NRBC COUNT 0.03 10^3/uL (0-0.01); ADD DIFF? NO; ADD MORPH? YES; ADD SCAN? YES; ATYPICAL LYMPHOCYTE FLAG 0 (0-99); FRAGMENT RBC FLAG 20 (0-99); HEMATOCRIT 26.5 % (40.0-51.0); HEMOGLOBIN 9.1 g/dL (13.7-17.5); LIPEMIA HEMOLYSIS FLAG 90 (0-99); MEAN CELL HEMOGLOBIN 32.6 pg (27.9-34.1); MEAN CELL HEMOGLOBIN CONCENTR. 34.3 g/dL (32.4-36.7); MEAN PLATELET VOLUME 11.2 fL (8.7-11.7); NRBC-AUTO% 0.7 % (0.0-0.2); PLATELET CLUMPS FLAG 10 (0-99); PLATELET COUNT 54 10^3/uL (150-400); RED BLOOD CELL COUNT 2.79 10^6/uL (4.40-6.38)
[2016-12-17 05:24] LABS: LEFT SHIFT FLG 140 (0-99); RED CELL DISTRIBUTION WIDTH 23.3 % (11.5-15.2)
[2016-12-17 05:29] LABS: ALANINE AMINOTRANSFERASE 104 IU/L (21-72); ALBUMIN 2.2 g/dL (3.5-5.0); ALKALINE PHOSPHATASE 278 IU/L (38-126); ANION GAP 7 mEq/L (8-16); ASPARTATE AMINOTRANSFERASE 51 IU/L (17-59); BILIRUBIN,TOTAL 6.1 mg/dL (0.1-1.4); CALCIUM 8.3 mg/dL (8.5-10.4); CARBON DIOXIDE 23 mEq/l (22-31); CHLORIDE 97 mEq/L (97-110); CREATININE 1.1 mg/dL (0.7-1.3); GLOMERULAR FILTRATION RATE > 60; GLUCOSE 128 mg/dL (70-100); POTASSIUM 4.6 mEq/L (3.5-5.2); SODIUM 127 mEq/L (134-144); TOTAL PROTEIN 4.3 g/dL (6.3-8.2)
[2016-12-17 05:36] LABS: BILIRUBIN-CONJUGATED 4.2 mg/dL (0.0-0.5); BILIRUBIN-UNCONJUGATED 1.9 mg/dL (0.0-1.1)
[2016-12-17 05:49] LABS: ELLIPTOCYTES 1+; MACROCYTES 1+; PLATELET ESTIMATE DECREASED (ADEQ); POLYCHROMASIA 1+; SCAN NEGATIVE; TARGET CELLS 1+
[2016-12-17] MEDS ORDERED: predniSONE 10 MG TAB PO SCH (09:00)
[2016-12-17] MEDS: SENNOSIDES 17.6 MG/10 ML UDL PO SCH (09:05)
[2016-12-17] MEDS: DOCUSATE SODIUM 100 MG CAP PO SCH ×2 (09:07→21:01)
[2016-12-17] MEDS: PANTOPRAZOLE SODIUM 40 MG TAB PO SCH ×2 (09:07→21:01)
[2016-12-17] MEDS: TAMSULOSIN HCL 0.4 MG CAP PO SCH (09:07)
[2016-12-17] MEDS: predniSONE 10 MG TAB PO SCH (09:11)
--- NOTE | 2016-12-17 12:04 | SOAPPROG ---
[facility] Progress Note Assessment/Plan: Assessment: 1. Metastatic RCC: he was inolerant to pozapanib with hepatis. He was given one dose of nivolumab. He came in with UGI bleeding and liver failure. He is improving hepatic sanchez. 2. Liver failure improving: T. bili a little higher at 6. transaminases improving. Now on prednisone 10 mg QOD. 3. steroid myopathy: rehab. 4. Low platelets: liver dz. Now improving. Plan: 12/17/16 12:01 Subjective: Horacio is a very pleasant 81 you with a prior H&N cancer (x2) who has metastatic renal cell. He developed pozapanib induced hepatitis. It is improving with steroids but he developed an UGI bleed. Now he is improving liver sanchez but is very weak overall which is multifactorial. Objective: Vital Signs Temp Pulse Resp BP Pulse Ox 36.7 C 106 H 18 94/50 L 93 12/17/16 09:17 12/17/16 09:17 12/17/16 09:17 12/17/16 09:17 12/17/16 09:17 Laboratory Results 12/17/16 05:00 12/17/16 05:00 12/16/16 12/17/16 12/18/16 05:59 05:59 05:59 Intake Total 1879 200 Output Total 2650 1150 Balance -771 -950 PT 18.6 SEC (12.0-15.0) H 12/06/16 05:45 INR 1.55 (0.83-1.16) H 12/06/16 05:45 Weak and depressed. ICD10 Worksheet Patient Problems: Problems Problem Status Onset Dehydration Acute Chest pain Acute Renal cell carcinoma Acute Upper GI bleed Acute Hemorrhagic shock Acute
[2016-12-17] MEDS ORDERED: NS 1,000 ML IV SCH (12:45)
[2016-12-17] MEDS: ALLOPURINOL 100 MG TAB PO SCH ×2 (12:46→21:01)
[2016-12-17] MEDS: CETIRIZINE 10 MG TAB PO SCH (12:46)
--- NOTE | 2016-12-17 14:45 | HOSPPROG ---
Hospitalist Progress Note Assessment/Plan: #Hypotension: dizzy today. Give gentle IVfs. Check TTE. H/H stable. Denies melena, blood in stool #Hyponatremia: drop to 127. Check urine Osm, lytes. #Acute blood loss anemia: due to duodenal ulcers seen on EGD 12/06. Negative H pylori. H/H stable. Reports brown stools today #Hypovolemic shock: resolved. Due to above. H/H stable #Duodenal ulcer: no intervention. Decrease pred. BID PPI #Thrombocytopenia: stable #Steroid myopathy: taper steroids, 10mg qod starting Sat #Metastatic RCC: recently on Pazopanib c/w liver dysfunction. PET/CT outpatient #Autoimmune hepatitis: taper pred. #Severe deconditioning: SNF at [place] #Diet: low-fat #DVT ppx: SCDs #Disp: inpatient admission, requiring IVFs, serial labs Subjective: dizziness with standing. No CP or SOB Objective: Vital Signs Temp Pulse Resp BP Pulse Ox 36.7 C 106 H 18 88/48 L 93 12/17/16 09:17 12/17/16 09:17 12/17/16 09:17 12/17/16 12:10 12/17/16 09:17 Laboratory Results 12/17/16 05:00 12/17/16 05:00 12/16/16 12/17/16 12/18/16 05:59 05:59 05:59 Intake Total 1879 200 Output Total 2650 1150 Balance -771 -950 PT 18.6 SEC (12.0-15.0) H 12/06/16 05:45 INR 1.55 (0.83-1.16) H 12/06/16 05:45 - Physical Exam Constitutional: no apparent distress Eyes: PERRL Ears, Nose, Mouth, Throat: moist mucous membranes Cardiovascular: regular rate and rhythym, edema (trace pedal edema) Respiratory: no respiratory distress, inspiratory crackles (left base) Gastrointestinal: normoactive bowel sounds, soft, non-tender abdomen Genitourinary: no bladder fullness, no bladder tenderness Skin: warm Musculoskeletal: full muscle strength Neurologic: AAOx3, CN II-XII Intact ICD10 Worksheet Patient Problems: Problems Problem Status Onset Hemorrhagic shock Acute Upper GI bleed Acute Chest pain Acute Dehydration Acute Renal cell carcinoma Acute
[2016-12-17 16:37] LABS: ANION GAP 5 mEq/L (8-16); CARBON DIOXIDE 23 mEq/l (22-31); CHLORIDE 94 mEq/L (97-110); CREATININE 1.2 mg/dL (0.7-1.3); GLOMERULAR FILTRATION RATE 58; GLUCOSE 244 mg/dL (70-100); POTASSIUM 4.6 mEq/L (3.5-5.2); SODIUM 122 mEq/L (134-144)
[2016-12-17] MEDS ORDERED: ALBUMIN 25% 100 ML IV ONE (18:36)
[2016-12-17] MEDS: FINASTERIDE 5 MG TAB PO SCH (21:01)
[2016-12-18] MEDS ORDERED: ALBUMIN 25% 100 ML IV ONE ×2 (01:00→10:23)
[2016-12-18 01:26] LABS: ANION GAP 6 mEq/L (8-16); CALCIUM 8.1 mg/dL (8.5-10.4); CARBON DIOXIDE 24 mEq/l (22-31); CHLORIDE 100 mEq/L (97-110); CREATININE 1.1 mg/dL (0.7-1.3); GLOMERULAR FILTRATION RATE > 60; GLUCOSE 132 mg/dL (70-100); POTASSIUM 4.3 mEq/L (3.5-5.2); SODIUM 130 mEq/L (134-144)
[2016-12-18 04:54] LABS: ABSOLUTE IMMATURE GRANULOCYTES 0.06 10^3/uL (0.00-0.10); ADD DIFF? NO; ADD MORPH? YES; ADD SCAN? YES; ATYPICAL LYMPHOCYTE FLAG 0 (0-99); FRAGMENT RBC FLAG 20 (0-99); HEMATOCRIT 21.6 % (40.0-51.0); HEMOGLOBIN 7.3 g/dL (13.7-17.5); LIPEMIA HEMOLYSIS FLAG 90 (0-99); MEAN CELL HEMOGLOBIN 31.9 pg (27.9-34.1); MEAN CELL HEMOGLOBIN CONCENTR. 33.8 g/dL (32.4-36.7); MEAN CELL VOLUME 94.3 fL (81.5-99.8); MEAN PLATELET VOLUME 11.1 fL (8.7-11.7); PLATELET CLUMPS FLAG 0 (0-99); RED BLOOD CELL COUNT 2.29 10^6/uL (4.40-6.38)
[2016-12-18 04:55] LABS: LEFT SHIFT FLG 110 (0-99); PLATELET COUNT 47 10^3/uL (150-400); RED CELL DISTRIBUTION WIDTH 23.4 % (11.5-15.2)
[2016-12-18 05:13] LABS: ALANINE AMINOTRANSFERASE 75 IU/L (21-72); ALBUMIN 2.4 g/dL (3.5-5.0); ALKALINE PHOSPHATASE 199 IU/L (38-126); ANION GAP 6 mEq/L (8-16); ASPARTATE AMINOTRANSFERASE 32 IU/L (17-59); CALCIUM 8.5 mg/dL (8.5-10.4); CARBON DIOXIDE 23 mEq/l (22-31); CHLORIDE 100 mEq/L (97-110); CREATININE 1.1 mg/dL (0.7-1.3); GLOMERULAR FILTRATION RATE > 60; GLUCOSE 107 mg/dL (70-100); SODIUM 129 mEq/L (134-144); TOTAL PROTEIN 4.3 g/dL (6.3-8.2)
[2016-12-18 05:23] LABS: SCAN NEGATIVE
[2016-12-18 05:26] LABS: MACROCYTES 1+; PLATELET ESTIMATE DECREASED (ADEQ); ROULEAUX PRESENT
[2016-12-18 05:43] LABS: CORTISOL-AM 8.1 ug/dL (4.5-22.7)
[2016-12-18 06:07] LABS: BILIRUBIN-CONJUGATED 3.3 mg/dL (0.0-0.5); BILIRUBIN-UNCONJUGATED 1.7 mg/dL (0.0-1.1)
[2016-12-18] MEDS: TAMSULOSIN HCL 0.4 MG CAP PO SCH (08:01)
[2016-12-18] MEDS: PANTOPRAZOLE SODIUM 40 MG TAB PO SCH ×2 (08:01→20:16)
[2016-12-18] MEDS: DOCUSATE SODIUM 100 MG CAP PO SCH ×2 (08:01→20:16)
[2016-12-18] MEDS: SENNOSIDES 17.6 MG/10 ML UDL PO SCH (08:02)
[2016-12-18] MEDS: ALLOPURINOL 100 MG TAB PO SCH ×2 (11:44→20:16)
[2016-12-18] MEDS: CETIRIZINE 10 MG TAB PO SCH (11:44)
[2016-12-18 12:18] LABS: HEMATOCRIT 23.1 % (40.0-51.0); HEMOGLOBIN 7.8 g/dL (13.7-17.5)
[2016-12-18] MEDS ORDERED: MAGNESIUM HYDROXIDE 30 ML UDCUP PO PRN (12:41)
[2016-12-18] MEDS ORDERED: POLYETHYLENE GLYCOL 3350 17 GM PKT PO PRN (12:41)
[2016-12-18] MEDS ORDERED: BISACODYL 10 MG SUPP PR PRN (12:41)
[2016-12-18] MEDS ORDERED: LACTULOSE 20 GM/30 ML UDCUP PO PRN (12:41)
--- NOTE | 2016-12-18 12:42 | HOSPPROG ---
Hospitalist Progress Note Assessment/Plan: #Hypotension: improved with IV albumin. Urine Na <10 indicative of pre-renal. Denies melena, blood in stool. NL cortisol and TSH. #Hypovolemic hyponatremia: dropped to 122 yesterday. Volume down, improved after IV albumin. Cont fluid restriction today #Acute blood loss anemia: due to duodenal ulcers seen on EGD 12/06. Negative H pylori. H/H down today, but denies bleeding. PPI. Transfuse if Hb<7 #Hypovolemic shock: resolved. Due to above. H/H stable #Duodenal ulcer: no intervention. Decrease pred. 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 PET/CT outpatient #Autoimmune hepatitis: taper pred. #Severe deconditioning: SNF at [place] #Diet: low-fat #DVT ppx: SCDs #Disp: inpatient admission, requiring IVFs, serial labs Subjective: less dizzy today. Had some hard, small stools yesterday, brown Objective: Vital Signs Temp Pulse Resp BP Pulse Ox 36.2 C 87 12 104/52 L 96 12/18/16 08:00 12/18/16 08:00 12/18/16 08:00 12/18/16 08:00 12/18/16 08:00 Laboratory Results 12/18/16 12:08 12/18/16 04:45 12/17/16 12/18/16 12/19/16 05:59 05:59 05:59 Intake Total 200 1468 Output Total 1150 1400 350 Balance -950 68 -350 PT 18.6 SEC (12.0-15.0) H 12/06/16 05:45 INR 1.55 (0.83-1.16) H 12/06/16 05:45 - Physical Exam Constitutional: no apparent distress Eyes: icteric sclera Ears, Nose, Mouth, Throat: moist mucous membranes, hearing normal Cardiovascular: edema (trace ankle edema, BL ankles) Respiratory: no respiratory distress, no rales or rhonchi, No inspiratory crackles Gastrointestinal: normoactive bowel sounds, soft, non-tender abdomen Genitourinary: no bladder fullness Skin: warm Musculoskeletal: full muscle strength Neurologic: AAOx3, CN II-XII Intact Psychiatric: interacting appropriately ICD10 Worksheet Patient Problems: Problems Problem Status Onset Hemorrhagic shock Acute Upper GI bleed Acute Chest pain Acute Dehydration Acute Renal cell carcinoma Acute
--- NOTE | 2016-12-18 13:04 | SOAPPROG ---
SOAP Progress Note Assessment/Plan: Assessment: 1. Metastatic RCC: he was inolerant to pozapanib with hepatis. He was given one dose of nivolumab. He came in with UGI bleeding and liver failure. He is improving hepatic sanchez. 2. Liver failure improving: T. bili a lower at 5. transaminases improving. Now on prednisone 10 mg QOD. 3. steroid myopathy: rehab. 4. Low platelets: liver dz. Now improving. Plan: 12/17/16 12:01 12/18/16 13:03 Subjective: Horacio is a very pleasant 81 you with a prior H&N cancer (x2) who has metastatic renal cell. He developed pozapanib induced hepatitis. It is improving with steroids but he developed an UGI bleed. Now he is improving liver sanchez but is very weak overall which is multifactorial. Today is a better day. He is feeling stronger Objective: Vital Signs Temp Pulse Resp BP Pulse Ox 36.2 C 87 12 104/56 L 96 12/18/16 08:00 12/18/16 08:00 12/18/16 08:00 12/18/16 12:47 12/18/16 08:00 Laboratory Results 12/18/16 12:08 12/18/16 04:45 12/17/16 12/18/16 12/19/16 05:59 05:59 05:59 Intake Total 200 1468 Output Total 1150 1400 350 Balance -950 68 -350 PT 18.6 SEC (12.0-15.0) H 12/06/16 05:45 INR 1.55 (0.83-1.16) H 12/06/16 05:45 alert. no asterixis. no abdominal pain no hepatomegaly ICD10 Worksheet Patient Problems: Problems Problem Status Onset Dehydration Acute Chest pain Acute Renal cell carcinoma Acute Upper GI bleed Acute Hemorrhagic shock Acute
[2016-12-18] MEDS: FINASTERIDE 5 MG TAB PO SCH (20:15)
[2016-12-18] MEDS: SENNOSIDES/DOCUSATE SODIUM TAB PO SCH (20:16)
[2016-12-18 20:38] LABS: HEMATOCRIT 22.2 % (40.0-51.0); HEMOGLOBIN 7.7 g/dL (13.7-17.5)
[2016-12-19 04:59] LABS: ADD DIFF? YES; ADD MORPH? YES; ATYPICAL LYMPHOCYTE FLAG 0 (0-99); FRAGMENT RBC FLAG 20 (0-99); HEMATOCRIT 22.4 % (40.0-51.0); HEMOGLOBIN 7.7 g/dL (13.7-17.5); LIPEMIA HEMOLYSIS FLAG 90 (0-99); MEAN CELL HEMOGLOBIN 32.5 pg (27.9-34.1); MEAN CELL HEMOGLOBIN CONCENTR. 34.4 g/dL (32.4-36.7); MEAN CELL VOLUME 94.5 fL (81.5-99.8); PLATELET CLUMPS FLAG 10 (0-99); PLATELET COUNT 51 10^3/uL (150-400); RED BLOOD CELL COUNT 2.37 10^6/uL (4.40-6.38)
[2016-12-19 05:09] LABS: ADD SCAN? NO; LEFT SHIFT FLG 200 (0-99); RED CELL DISTRIBUTION WIDTH 23.7 % (11.5-15.2)
[2016-12-19 05:16] LABS: ALANINE AMINOTRANSFERASE 83 IU/L (21-72); ALBUMIN 2.4 g/dL (3.5-5.0); ALKALINE PHOSPHATASE 263 IU/L (38-126); ANION GAP 5 mEq/L (8-16); ASPARTATE AMINOTRANSFERASE 52 IU/L (17-59); BILIRUBIN,TOTAL 5.9 mg/dL (0.1-1.4); CALCIUM 8.6 mg/dL (8.5-10.4); CARBON DIOXIDE 22 mEq/l (22-31); CHLORIDE 102 mEq/L (97-110); CREATININE 1.1 mg/dL (0.7-1.3); GLOMERULAR FILTRATION RATE > 60; GLUCOSE 112 mg/dL (70-100); POTASSIUM 4.4 mEq/L (3.5-5.2); SODIUM 129 mEq/L (134-144); TOTAL PROTEIN 4.4 g/dL (6.3-8.2)
[2016-12-19 05:22] LABS: BILIRUBIN-CONJUGATED 3.7 mg/dL (0.0-0.5); BILIRUBIN-UNCONJUGATED 2.2 mg/dL (0.0-1.1)
[2016-12-19 05:50] LABS: ELLIPTOCYTES 1+; MACROCYTES 1+; PLATELET ESTIMATE DECREASED (ADEQ); POLYCHROMASIA 1+
--- NOTE | 2016-12-19 09:15 | SOAPPROG ---
SOAP Progress Note Assessment/Plan: Assessment: 1. Metastatic RCC: He was intolerant to pozapanib with hepatis. He was given one dose of nivolumab. He came in with UGI bleeding and liver failure. He is stable but still jaundiced. we have not assessed his cancer, becasue there is nothing that we should od about it now. 2. Liver failure improved buut stable: T. bili a lower at 5-6. transaminases improving. Now on prednisone 10 mg QOD. 3. Steroid myopathy: rehab. 4. Low platelets and HgB: liver dz. TXN today. Plan: 12/17/16 12:01 12/18/16 13:03 12/19/16 09:41 Subjective: Horacio is a very pleasant 81 you with a prior H&N cancer (x2) who has metastatic renal cell. He developed pozapanib induced hepatitis. It is improving with steroids but he developed an UGI bleed. Now he is improving liver sanchez but is very weak overall which is multifactorial. Today is a better day. He is feeling stronger Objective: Vital Signs Temp Pulse Resp BP Pulse Ox 36.6 C 90 18 90/46 L 92 12/19/16 07:51 12/19/16 07:51 12/19/16 07:51 12/19/16 07:51 12/19/16 07:51 Laboratory Results 12/19/16 04:30 12/19/16 04:30 12/18/16 12/19/16 12/20/16 05:59 05:59 05:59 Intake Total 1468 1576 Output Total 1400 1700 Balance 68 -124 PT 18.6 SEC (12.0-15.0) H 12/06/16 05:45 INR 1.55 (0.83-1.16) H 12/06/16 05:45 icteric. alert. Xerostomai. Lungs clear - Time Spent With Patient Time Spent With Patient: 25 min ICD10 Worksheet Patient Problems: Problems Problem Status Onset Dehydration Acute Chest pain Acute Renal cell carcinoma Acute Upper GI bleed Acute Hemorrhagic shock Acute
[2016-12-19] MEDS: CETIRIZINE 10 MG TAB PO SCH (11:07)
[2016-12-19] MEDS: predniSONE 10 MG TAB PO SCH (11:07)
[2016-12-19] MEDS: DOCUSATE SODIUM 100 MG CAP PO SCH ×2 (11:07→21:05)
[2016-12-19] MEDS: TAMSULOSIN HCL 0.4 MG CAP PO SCH (11:07)
[2016-12-19] MEDS: PANTOPRAZOLE SODIUM 40 MG TAB PO SCH ×2 (11:07→21:07)
[2016-12-19] MEDS: ALLOPURINOL 100 MG TAB PO SCH ×2 (11:07→21:05)
[2016-12-19] MEDS: SENNOSIDES 17.6 MG/10 ML UDL PO SCH (11:08)
[2016-12-19] MEDS: SENNOSIDES/DOCUSATE SODIUM TAB PO SCH ×2 (11:09→21:06)
--- NOTE | 2016-12-19 11:10 | HOSPPROG ---
Hospitalist Progress Note Assessment/Plan: #Hypotension: improved with IV albumin. Urine Na <10 indicative of pre-renal. Denies melena, blood in stool. NL cortisol and TSH. Blood today #Hypovolemic hyponatremia: improved with IV albumin. Cont fluid restriction today #Acute blood loss anemia: due to duodenal ulcers seen on EGD 12/06. Negative H pylori. H/H down today. Having brown stools. Transfuse 2 units. PPI. #Hypovolemic shock: resolved. Due to above. H/H stable #Duodenal ulcer: no intervention. Decrease pred. 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 PET/CT outpatient #Autoimmune hepatitis: has been on pred for 3 weeks, tapering off at 10mg qod, can stop this week. #Severe deconditioning: SNF at [place] #Metabolic encephalopathy: due to shock with bleed. Now resolved #Diet: low-fat #DVT ppx: SCDs #Disp: inpatient admission, requiring IVFs, serial labs Subjective: no dizziness. 2 brown stools this morning Objective: Vital Signs Temp Pulse Resp BP Pulse Ox 36.6 C 90 18 90/46 L 92 12/19/16 07:51 12/19/16 07:51 12/19/16 07:51 12/19/16 07:51 12/19/16 07:51 Laboratory Results 12/19/16 04:30 12/19/16 04:30 12/18/16 12/19/16 12/20/16 05:59 05:59 05:59 Intake Total 1468 1576 Output Total 1400 1700 Balance 68 -124 PT 18.6 SEC (12.0-15.0) H 12/06/16 05:45 INR 1.55 (0.83-1.16) H 12/06/16 05:45 - Physical Exam Constitutional: no apparent distress Eyes: icteric sclera Ears, Nose, Mouth, Throat: moist mucous membranes Cardiovascular: regular rate and rhythym, No edema Respiratory: no respiratory distress Gastrointestinal: normoactive bowel sounds, soft, non-tender abdomen, No tenderness Genitourinary: no bladder fullness Skin: warm Musculoskeletal: full muscle strength Neurologic: AAOx3, CN II-XII Intact ICD10 Worksheet Patient Problems: Problems Problem Status Onset Hemorrhagic shock Acute Upper GI bleed Acute Chest pain Acute Dehydration Acute Renal cell carcinoma Acute
--- NOTE | 2016-12-19 13:19 | ASMTCMCOM ---
MARIAH Note MARIAH Note Notes: D/W . Pt not ready for dc yet. Notified Ellen woods/Samuel and updated notes sent as requested as they will need to get insurance auth. MARIAH w/f. Date Signed: 12/19/2016 01:18 PM Electronically Signed By:Audra Martinez RN
[2016-12-19] MEDS: FINASTERIDE 5 MG TAB PO SCH (21:07)
[2016-12-20 04:47] LABS: HEMOGLOBIN 8.6 g/dL (13.7-17.5); MEAN CELL HEMOGLOBIN CONCENTR. 34.4 g/dL (32.4-36.7); MEAN CELL VOLUME 92.9 fL (81.5-99.8); RED BLOOD CELL COUNT 2.69 10^6/uL (4.40-6.38)
[2016-12-20 04:48] LABS: RED CELL DISTRIBUTION WIDTH 22.9 % (11.5-15.2)
[2016-12-20 05:19] LABS: ALANINE AMINOTRANSFERASE 76 IU/L (21-72); ALBUMIN 2.3 g/dL (3.5-5.0); ALKALINE PHOSPHATASE 258 IU/L (38-126); ANION GAP 6 mEq/L (8-16); ASPARTATE AMINOTRANSFERASE 40 IU/L (17-59); BILIRUBIN,TOTAL 4.9 mg/dL (0.1-1.4); CALCIUM 8.4 mg/dL (8.5-10.4); CARBON DIOXIDE 21 mEq/l (22-31); CHLORIDE 104 mEq/L (97-110); CREATININE 0.9 mg/dL (0.7-1.3); GLOMERULAR FILTRATION RATE > 60; GLUCOSE 155 mg/dL (70-100); POTASSIUM 4.5 mEq/L (3.5-5.2); SODIUM 131 mEq/L (134-144); TOTAL PROTEIN 4.1 g/dL (6.3-8.2)
[2016-12-20 05:26] LABS: BILIRUBIN-CONJUGATED 3.2 mg/dL (0.0-0.5); BILIRUBIN-UNCONJUGATED 1.7 mg/dL (0.0-1.1)
[2016-12-20] MEDS: TAMSULOSIN HCL 0.4 MG CAP PO SCH (08:01)
[2016-12-20] MEDS: PANTOPRAZOLE SODIUM 40 MG TAB PO SCH ×2 (08:01→21:54)
[2016-12-20] MEDS: SENNOSIDES/DOCUSATE SODIUM TAB PO SCH ×2 (08:01→21:54)
[2016-12-20] MEDS: DOCUSATE SODIUM 100 MG CAP PO SCH ×2 (08:01→21:54)
[2016-12-20] MEDS: SENNOSIDES 17.6 MG/10 ML UDL PO SCH (08:02)
--- NOTE | 2016-12-20 08:25 | HOSPPROG ---
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 -patient notices very minor improvement today compared to last couple days, but will need ongoing extensive therapies # neutropenia, suspect is secondary to chemotherapy; will need neutropenic precautions and close monitoring for any fevers or signs of infection # thrombocytopenia - plts stable today; goal plt>50 for now - 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 - on lower dose pred now - possible IVIG if plts fall # REGULO/hyperK - single kidney; improved - holding lisinopril # acute metabolic encephalopathy, resolved # autoimmune hepatitis d/t chemo - still severe, treated with prednisone - tapered per onc and GI # metastatic renal cell carcinoma s/p nephrectomy- iliac met # vol overload - received albumin and lasix IV - lasix PO started; aldactone restarted -echo with some diastolic dysfunction but no ventricular or wall motion abnormalities otherwise # 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 # urinary retention - saavedra dc'd, follow UOP - proscar, flomax SUBJECTIVE: Says yesterday he was extremely tired and " out of it", but feels better in this regard today after transfusion yesterday Eating well, no nausea vomiting or abdominal pain No dyspnea No fever symptoms Remains extremely weak but perhaps slightly better today OBJECTIVE Vitals reviewed: Stable without fever Exam: alert oriented skin warm dry color ok resps not labored lungs clear BSs heart regular abd soft nondistended nontender, bowel sounds present limbs warm, no edema iv site ok Laboratory data: Hemoglobin improved after transfusion yesterday White blood cell count down slightly further Objective: Vital Signs Temp Pulse Resp BP Pulse Ox 36.5 C 87 16 124/62 H 94 12/20/16 08:00 12/20/16 08:00 12/20/16 08:00 12/20/16 08:00 12/20/16 08:00 Laboratory Results 12/20/16 04:23 12/20/16 04:23 12/19/16 12/20/16 12/21/16 06:59 06:59 06:59 Intake Total 1576 530 Output Total 1700 1015 Balance -124 -485 PT 18.6 SEC (12.0-15.0) H 12/06/16 05:45 INR 1.55 (0.83-1.16) H 12/06/16 05:45 ICD10 Worksheet Patient Problems: Problems Problem Status Onset Hemorrhagic shock Acute Upper GI bleed Acute Chest pain Acute Dehydration Acute Renal cell carcinoma Acute
--- NOTE | 2016-12-20 09:07 | SOAPPROG ---
[facility] Progress Note Assessment/Plan: Assessment: 1. Metastatic RCC: He was intolerant to pozapanib with hepatis. He was given one dose of nivolumab. He came in with UGI bleeding and liver failure. He is stable but still jaundiced. we have not assessed his cancer, becasue there is nothing that we should do about it now. He is not having bone pain. 2. Liver failure improved buut stable: T. bili a lower at 4-5. transaminases improving. Now on prednisone 10 mg QOD. 3. Steroid myopathy: rehab. 4. Pancytopenia: WBC a little lower at 1.3. but platelets a little better. The HgB is higher and he feels stronger. 5. Depression: He seems a little brighter today. Plan: 12/17/16 12:01 12/18/16 13:03 12/19/16 09:41 12/20/16 09:09 12/20/16 09:13 12/20/16 09:13 Subjective: Horacio is a very pleasant 81 you with a prior H&N cancer (x2) who has metastatic renal cell. He developed pozapanib induced hepatitis. It is improving with steroids but he developed an UGI bleed. Now he is improving liver sanchez but is very weak overall which is multifactorial. Today is a better day than yesterday. His bili is coming down. He is feeling stronger Objective: Vital Signs Temp Pulse Resp BP Pulse Ox 36.5 C 87 16 124/62 H 94 12/20/16 08:00 12/20/16 08:00 12/20/16 08:00 12/20/16 08:00 12/20/16 08:00 Laboratory Results 12/20/16 04:23 12/20/16 04:23 12/19/16 12/20/16 12/21/16 05:59 05:59 05:59 Intake Total 1576 530 Output Total 1700 865 150 Balance -124 -335 -150 PT 18.6 SEC (12.0-15.0) H 12/06/16 05:45 INR 1.55 (0.83-1.16) H 12/06/16 05:45 Icteric. Alert ICD10 Worksheet Patient Problems: Problems Problem Status Onset Hemorrhagic shock Acute Upper GI bleed Acute Chest pain Acute Dehydration Acute Renal cell carcinoma Acute
[2016-12-20] MEDS: ALLOPURINOL 100 MG TAB PO SCH ×2 (12:01→21:54)
[2016-12-20] MEDS: CETIRIZINE 10 MG TAB PO SCH (12:01)
--- NOTE | 2016-12-20 12:03 | ASMTCMCOM ---
CM Note CM Note Notes: Chart reviewed. No pending dc today. Notes updated to [facility]. CM to follow. Date Signed: 12/20/2016 12:02 PM Electronically Signed By:Vy sAhford RN
[2016-12-20] MEDS ORDERED: CEPACOL LOZENGE PO PRN (19:32)
[2016-12-20] MEDS: FINASTERIDE 5 MG TAB PO SCH (21:54)
[2016-12-21 05:25] LABS: ABSOLUTE NRBC COUNT 0.03 10^3/uL (0-0.01); ADD DIFF? YES; ATYPICAL LYMPHOCYTE FLAG 0 (0-99); FRAGMENT RBC FLAG 20 (0-99); HEMATOCRIT 27.7 % (40.0-51.0); HEMOGLOBIN 9.6 g/dL (13.7-17.5); LIPEMIA HEMOLYSIS FLAG 90 (0-99); MEAN CELL HEMOGLOBIN 32.8 pg (27.9-34.1); MEAN CELL HEMOGLOBIN CONCENTR. 34.7 g/dL (32.4-36.7); MEAN CELL VOLUME 94.5 fL (81.5-99.8); MEAN PLATELET VOLUME 10.6 fL (8.7-11.7); PLATELET CLUMPS FLAG 0 (0-99); PLATELET COUNT 83 10^3/uL (150-400); RED BLOOD CELL COUNT 2.93 10^6/uL (4.40-6.38)
[2016-12-21 05:35] LABS: ADD MORPH? NO; ADD SCAN? NO; LEFT SHIFT FLG 300 (0-99); NRBC-AUTO% 1.5 % (0.0-0.2); RED CELL DISTRIBUTION WIDTH 22.9 % (11.5-15.2)
[2016-12-21 05:43] LABS: ALANINE AMINOTRANSFERASE 87 IU/L (21-72); ALBUMIN 2.3 g/dL (3.5-5.0); ALKALINE PHOSPHATASE 329 IU/L (38-126); ANION GAP 7 mEq/L (8-16); ASPARTATE AMINOTRANSFERASE 56 IU/L (17-59); BILIRUBIN,TOTAL 4.8 mg/dL (0.1-1.4); CALCIUM 8.7 mg/dL (8.5-10.4); CARBON DIOXIDE 22 mEq/l (22-31); CHLORIDE 104 mEq/L (97-110); GLOMERULAR FILTRATION RATE > 60; GLUCOSE 145 mg/dL (70-100); POTASSIUM 4.3 mEq/L (3.5-5.2); SODIUM 133 mEq/L (134-144); TOTAL PROTEIN 4.2 g/dL (6.3-8.2)
[2016-12-21 05:50] LABS: BILIRUBIN-CONJUGATED 3.5 mg/dL (0.0-0.5); BILIRUBIN-UNCONJUGATED 1.3 mg/dL (0.0-1.1)
[2016-12-21 06:40] LABS: PLATELET ESTIMATE DECREASED (ADEQ)
[2016-12-21 06:42] LABS: ELLIPTOCYTES 1+; MACROCYTES 1+; POLYCHROMASIA 1+
--- NOTE | 2016-12-21 07:15 | SOAPPROG ---
SOAP Progress Note Assessment/Plan: Assessment: 1. Metastatic RCC: He was intolerant to pozapanib with hepatis. He was given one dose of nivolumab. He came in with UGI bleeding and liver failure. He is stable but still jaundiced. we have not assessed his cancer, becasue there is nothing that we should do about it now. He is not having bone pain. 2. Liver failure improved but stable: T. bili a lower at 3.5. transaminases a little higher. Now on prednisone 10 mg QOD. 3. Steroid myopathy: rehab. 4. Pancytopenia: WBC a little higher at 1.8. The HgB is higher and he feels stronger. 5. Depression: He seems a little brighter today. Plan: SNF when he is able to move. No treatment for the cancer in the foreseable future. 12/17/16 12:01 12/18/16 13:03 12/19/16 09:41 12/20/16 09:09 12/20/16 09:13 12/20/16 09:13 12/21/16 08:18 Subjective: Horacio is a very pleasant 81 you with a prior H&N cancer (x2) who has metastatic renal cell. He developed pozapanib induced hepatitis. It is improving with steroids but he developed an UGI bleed. Now he is improving liver sanchez but is very weak overall which is multifactorial. Today is a better day than yesterday. His bili is coming down. He is feeling stronger Objective: Vital Signs Temp Pulse Resp BP Pulse Ox 36.8 C 90 18 118/62 93 12/21/16 04:04 12/21/16 04:04 12/21/16 04:04 12/21/16 04:04 12/21/16 04:04 Laboratory Results 12/21/16 05:05 12/21/16 05:05 12/20/16 12/21/16 12/22/16 05:59 05:59 05:59 Intake Total 530 1000 Output Total 865 1000 Balance -335 0 PT 18.6 SEC (12.0-15.0) H 12/06/16 05:45 INR 1.55 (0.83-1.16) H 12/06/16 05:45 Liver is nonpalp ICD10 Worksheet Patient Problems: Problems Problem Status Onset Dehydration Acute Chest pain Acute Renal cell carcinoma Acute Upper GI bleed Acute Hemorrhagic shock Acute
[2016-12-21] MEDS: DOCUSATE SODIUM 100 MG CAP PO SCH ×2 (08:18→20:33)
[2016-12-21] MEDS: TAMSULOSIN HCL 0.4 MG CAP PO SCH (08:18)
[2016-12-21] MEDS: SENNOSIDES/DOCUSATE SODIUM TAB PO SCH ×2 (08:18→20:33)
[2016-12-21] MEDS: predniSONE 10 MG TAB PO SCH (08:18)
[2016-12-21] MEDS: PANTOPRAZOLE SODIUM 40 MG TAB PO SCH ×2 (08:18→20:33)
[2016-12-21] MEDS: ALLOPURINOL 100 MG TAB PO SCH ×2 (12:52→20:33)
[2016-12-21] MEDS: CETIRIZINE 10 MG TAB PO SCH (12:52)
[2016-12-21 17:24] VITALS: RESP 18
--- NOTE | 2016-12-21 17:35 | HOSPPROG ---
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 -patient notices some continued improvement today compared to last couple days, but will need ongoing extensive therapies # pancytopenia from chemotherapy - -all cell counts better today, no transfusions indicated -no sign of fever or bleeding # REGULO/hyperK - single kidney; improved - holding lisinopril # acute metabolic encephalopathy, resolved # autoimmune hepatitis d/t chemo - still severe, treated with prednisone - tapered per onc and GI # metastatic renal cell carcinoma s/p nephrectomy- iliac met # vol overload - received albumin and lasix IV - lasix PO started; aldactone restarted -echo with some diastolic dysfunction but no ventricular or wall motion abnormalities otherwise # 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 No other new or different symptoms OBJECTIVE Vitals reviewed: Stable without fever Exam: alert oriented skin warm dry color ok resps not labored lungs clear BSs heart regular abd soft nondistended nontender, bowel sounds present limbs warm, no edema iv site ok Laboratory data: All cell lines better today Objective: Vital Signs Temp Pulse Resp BP Pulse Ox 36.6 C 80 18 110/64 93 12/21/16 16:00 12/21/16 16:00 12/21/16 16:00 12/21/16 16:00 12/21/16 16:00 Laboratory Results 12/21/16 05:05 12/21/16 05:05 12/20/16 12/21/16 12/22/16 06:59 06:59 06:59 Intake Total 530 1000 Output Total 1015 850 Balance -485 150 PT 18.6 SEC (12.0-15.0) H 12/06/16 05:45 INR 1.55 (0.83-1.16) H 12/06/16 05:45 ICD10 Worksheet Patient Problems: Problems Problem Status Onset Hemorrhagic shock Acute Upper GI bleed Acute Chest pain Acute Dehydration Acute Renal cell carcinoma Acute
[2016-12-21] MEDS: FINASTERIDE 5 MG TAB PO SCH (20:33)
--- NOTE | 2016-12-22 07:23 | SOAPPROG ---
SOAP Progress Note Assessment/Plan: Assessment: 1. Metastatic RCC: He was intolerant to pozapanib with hepatis. He was given one dose of nivolumab. He came in with UGI bleeding and liver failure. He is stable but still jaundiced. We have not assessed his cancer, becasue there is nothing that we should do about it now. He is not having bone pain. We'll repeat his CT in a month or so depending on how he is doing. 2. Liver failure improved but not normal. Repeat the LFTs. Minimal role for steroids now. Wait and watch. 3. Steroid myopathy: rehab. Overall though he is better 4. Pancytopenia: WBC a little higher at 1.8. The HgB is higher and he feels stronger. recheck the CBC 5. Depression: He seems a little brighter today and is getting his good outlook back Plan: SNF when he is able to move. No treatment for the cancer in the foreseable future. 12/17/16 12:01 12/18/16 13:03 12/19/16 09:41 12/20/16 09:09 12/20/16 09:13 12/20/16 09:13 12/21/16 08:18 12/22/16 07:39 Subjective: Horacio is a very pleasant 81 you with a prior H&N cancer (x2) who has metastatic renal cell. He developed pozapanib induced hepatitis. It is improving with steroids but he developed an UGI bleed. Now he is improving liver sanchez but is very weak overall which is multifactorial. Today is a better day than yesterday. His bili is coming down. He is feeling stronger Objective: Vital Signs Temp Pulse Resp BP Pulse Ox 36.6 C 73 18 116/68 93 12/22/16 04:00 12/22/16 04:00 12/22/16 04:00 12/22/16 04:00 12/22/16 04:00 Laboratory Results 12/21/16 05:05 12/21/16 05:05 12/21/16 12/22/16 12/23/16 05:59 05:59 05:59 Intake Total 1000 1100 Output Total 1000 450 Balance 0 650 PT 18.6 SEC (12.0-15.0) H 12/06/16 05:45 INR 1.55 (0.83-1.16) H 12/06/16 05:45 abdomen non tender wo mass ICD10 Worksheet Patient Problems: Problems Problem Status Onset Dehydration Acute Chest pain Acute Renal cell carcinoma Acute Upper GI bleed Acute Hemorrhagic shock Acute
[2016-12-22 08:41] LABS: ABSOLUTE NRBC COUNT 0.02 10^3/uL (0-0.01); ADD DIFF? YES; ATYPICAL LYMPHOCYTE FLAG 0 (0-99); FRAGMENT RBC FLAG 20 (0-99); HEMATOCRIT 29.2 % (40.0-51.0); LIPEMIA HEMOLYSIS FLAG 90 (0-99); MEAN CELL HEMOGLOBIN 32.8 pg (27.9-34.1); MEAN CELL HEMOGLOBIN CONCENTR. 34.2 g/dL (32.4-36.7); MEAN CELL VOLUME 95.7 fL (81.5-99.8); MEAN PLATELET VOLUME 10.7 fL (8.7-11.7); NRBC-AUTO% 0.4 % (0.0-0.2); PLATELET CLUMPS FLAG 0 (0-99); PLATELET COUNT 95 10^3/uL (150-400); RED BLOOD CELL COUNT 3.05 10^6/uL (4.40-6.38)
[2016-12-22 08:45] LABS: LEFT SHIFT FLG 300 (0-99); RED CELL DISTRIBUTION WIDTH 22.5 % (11.5-15.2)
[2016-12-22 08:46] LABS: ADD MORPH? NO; ADD SCAN? NO
[2016-12-22 08:55] LABS: ALANINE AMINOTRANSFERASE 79 IU/L (21-72); ALBUMIN 2.5 g/dL (3.5-5.0); ALKALINE PHOSPHATASE 298 IU/L (38-126); ANION GAP 8 mEq/L (8-16); ASPARTATE AMINOTRANSFERASE 39 IU/L (17-59); BILIRUBIN,TOTAL 3.9 mg/dL (0.1-1.4); CALCIUM 8.7 mg/dL (8.5-10.4); CARBON DIOXIDE 22 mEq/l (22-31); CHLORIDE 103 mEq/L (97-110); GLOMERULAR FILTRATION RATE > 60; GLUCOSE 123 mg/dL (70-100); POTASSIUM 4.3 mEq/L (3.5-5.2); SODIUM 133 mEq/L (134-144); TOTAL PROTEIN 4.5 g/dL (6.3-8.2)
[2016-12-22 09:04] LABS: BILIRUBIN-CONJUGATED 2.9 mg/dL (0.0-0.5)
[2016-12-22 09:29] VITALS: BP 114/58; PULSE 104; TEMP 97.8; O2SAT 95
[2016-12-22] MEDS: SENNOSIDES/DOCUSATE SODIUM TAB PO SCH (09:44)
[2016-12-22] MEDS: DOCUSATE SODIUM 100 MG CAP PO SCH (09:44)
[2016-12-22] MEDS: PANTOPRAZOLE SODIUM 40 MG TAB PO SCH (09:45)
[2016-12-22] MEDS: TAMSULOSIN HCL 0.4 MG CAP PO SCH (09:45)
[2016-12-22 09:55] LABS: ELLIPTOCYTES 1+; POLYCHROMASIA 2+; SCHISTOCYTES 1+; SPHEROCYTES 1+; TOXIC GRANULATION PRESENT
--- NOTE | 2016-12-22 11:29 | PDIAF ---
- Diagnosis Diagnosis: upper gi bleed, deconditioning, chemo induced liver toxicity, pancytopenia Code Status: Full Code - Medication Management Discharge Medications: Medications to Continue on Transfer Allopurinol [Allopurinol 100 MG (*)] 100 mg PO BID@07/22/16 [Last Taken ] Ascorbic Acid [Vitamin C 500 mg (*)] 500 mg PO DAILY@1200 07/22/16 [Last Taken 12/03/16] Aspirin EC [Aspirin EC 81 mg (*)] 81 mg PO DAILY 07/22/16 [Last Taken 12/03/16] Finasteride [Proscar 5 MG (*)] 5 mg PO HS 07/22/16 [Last Taken 12/03/16] Fluticasone Nasal [Flonase Nasal [place]] 1 sprays NASAL BID PRN 07/22/16 [Last Taken Unknown] Loratadine [Claritin 10 mg] 10 mg PO DAILY@1200 07/22/16 [Last Taken 10/17/16] Multivitamins [Multivitamin (*)] 1 each PO DAILY 07/22/16 [Last Taken 12/03/16] Cholecalciferol Vit D3 [Vitamin D3 2000 units tab (OTC)] 2,000 units PO DAILY [Last Taken 12/03/16] Lisinopril [Zestril 10 mg (*)] 10 mg PO DAILY 10/18/16 [Last Taken 12/03/16] Furosemide [Lasix 20 MG (*)] 20 mg PO DAILY 12/04/16 [Last Taken 12/03/16] Benzocaine/Menthol 15/4 [Cepacol Lozenge] 1 ea PO Q2 PRN lozenge 12/22/16 [ Last Taken Unknown] Docusate Sodium [Colace 100 MG (*)] 100 mg PO BID cap 12/22/16 [Last Taken Unknown] Pantoprazole Sodium [Protonix 40mg (*)] 40 mg PO BID tab 12/22/16 [Last Taken Unknown] Sennosides/Docusate Sodium [Senokot-S] 1 - 2 tab PO BID tab 12/22/16 [Last Taken Unknown] Tamsulosin HCl [Flomax 0.4 MG (*)] 0.4 mg PO DAILY cap 12/22/16 [Last Taken Unknown] predniSONE 10 mg PO Q2D tab 12/22/16 [Last Taken Unknown] Discharge Medications: Refer to the Discharge Home Medication list for PRN reason. - Orders Services needed: Registered Nurse, Certified Dye House Helper, Master Handwriting Expert , Physical Therapy Diet Recommendation: no restrictions on diet, fluid restriction (use comment for amount) Diet Texture: Regular Texture Diet - Follow Up Care Current Providers and Referrals: Patient,NotPresent [Unknown] - As per Instructions
[2016-12-22] MEDS: ALLOPURINOL 100 MG TAB PO SCH (12:16)
[2016-12-22] MEDS: CETIRIZINE 10 MG TAB PO SCH (12:16)
--- NOTE | 2016-12-22 12:34 | ASMTCMCOM ---
CM Note CM Note Notes: Pt ready for DC today. [facility] set up transport for 4:30. Final orders and DC meds faxed. Called pt's dtr Jelena at pt's request to discuss DC. Date Signed: 12/22/2016 12:33 PM Electronically Signed By:Savannah Dalton LCSW
[2016-12-22 14:51] LABS: PLATELET ESTIMATE DECREASED (ADEQ)
--- NOTE | 2016-12-22 16:08 | PDDCSUM ---
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 EGD showed Duodenal ulcers, which did not require intervention. He did receive a total of 4 units RBC with no complications. He remaind hemodynamically stable, and there is now no evidence of furhter bleeding. He is on PPI bid and should stay on for minimum 8 weeks. He did have severe weakness, impairing mobility, and was felt to have a myopathy due to his steroids taken for his liver. The steroids were tapered as able, and he was treated with PO and OT and nutritional supplements. He is improving but still too weak to go home so will need SNF rehab. His liver shows signs of ongoing recovery but labs not yet back to normal. At this time he is stable for DC to rehab at [facility]. FOLLOWUP: -at [facility] -with Dr Ulloa for ulcers and liver disease -at [facility] for his cancers and further therapy considerations
--- NOTE | 2016-12-22 17:09 | ASDISCHSUM ---
Discharge Information Plan Status:SNF Medically Cleared to Leave: Discharge Date:12/22/2016 04:30 PM CM D/C Disposition: ADT D/C Disposition:Care Home Facility Projected Discharge Date:12/22/2016 05:00 PM Transportation at D/C: Discharge Delay Reason: Follow-Up Date:12/22/2016 05:00 PM Discharge Slot: Final Diagnosis: Placement Information Referral Type:*Snf/SNF Referral ID:[id number] Provider Name:Alesia [facility]onayette Address [address] Phone Number: Address 2: Fax Number: City:[place] Selection Factors: State:[place] Patient Contact Information Contact Name:JUN Relationship:Daughter Address: City:[place] Alternate Phone: [facility] Code:[place] Email: Financial Information Financial Class:Medicare Advantage Plans Primary Plan Desc:[employer] Primary Plan Number:[id number] Secondary Plan Desc: Secondary Plan Number: Assessment Information [facility] CM Progress Note CM Note CM Note Notes: Patient admitted for GI bleed, syncope, and weakness. Patient has renal cell carcinoma and began chemo this past August. Patient's most recent IV chemo treatment was three weeks ago. 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 He is followed by Dr Sierra at [facility]. Patient has other extensive cancer history of cancer, including lung cancer. Pt lives at home in [place] and his two daughters, Merry ARNOLD) and Audra, help care for him. Patient was at [facility] 10/19/16 for chest pain and elected to not have home care services at that time, but they had considered [facility] with [facility]. Patient has a living will on file from 2005. Exact DC needs unknown at this time. CM to follow. Date Signed: 12/04/2016 05:00 PM Electronically Signed By:Amie Howard RN [facility] CM Progress Note CM Note CM Note Notes: Patient discussed during rounds. He has supportive daughters and HHC. DC needs not clear as of yet. Will follow as needs arise. Date Signed: 12/05/2016 03:30 PM Electronically Signed By:Vy Ashford RN [facility] CM Progress Note CM Note CM Note Notes: Met with patient and also spoke with his daughter Jelena on the phone re: discharge planning. Both agree that patient will need rehab prior to returning home. They selected [facility] for SNF; [facility] inpatient rehab also following. Due to insurance, facilities will need advance notice of patient's discharge in order to submit auth. CM will follow. Date Signed: 12/07/2016 12:02 PM Electronically Signed By:Kim Ch RN [facility] CM Progress Note CM Note CM Note Notes: [employer] called to state that they got auth for pt's admission to [facility] but that it is only good for 48 hours, which means it will at noon on Monday. If pt is not ready for DC then, [facility] may not be able to get reauth until Monday. C/M will continue to follow. Date Signed: 12/08/2016 02:01 PM Electronically Signed By:Savannah Dalton LCSW [facility] CM Progress Note CM Note CM Note Notes: Pt's [employer] ins auth to go to [facility] has . [facility] unable to seek reauth until Monday. C/M to follow. Date Signed: 12/10/2016 03:12 PM Electronically Signed By:Savannah Dalton LCSW [facility] CM Progress Note CM Note CM Note Notes: patient here with upper GI bleed who continues appears to still have some bleeding. According to hospitalist anticipate a couple more days in the hospital and thehn will discharge to [facility]. [facility] aware of the delay of discharge from anticipated day. Case management will follow. Date Signed: 12/13/2016 05:25 PM Electronically Signed By:KIERSTEN Boykin BC CM Progress Note CM Note CM Note Notes: D/c plan remains [facility] SNF. May need new insurance authorization for SNF due to lengthy admission. Please note: Monalisa from [facility] called today stating that Pt. was open w/ [facility] at time of admission. Date Signed: 12/14/2016 04:55 PM Electronically Signed By:Amie Moreira LCSW [facility] CM Progress Note CM Note CM Note Notes: Per MD note, plan is to monitor pt at least another 48 hrs due to his GIB. Updated Ellen at [facility]. She will need to get a new ins. auth. C/M to follow. Date Signed: 12/15/2016 04:43 PM Electronically Signed By:Savannah Dalton LCSW [facility] CM Progress Note CM Note CM Note Notes: Spoke with Ellen at [facility] today. Ellen states that [facility] will not be able to get a new ins. auth until Monday. C/M will continue to follow. Date Signed: 12/16/2016 04:00 PM Electronically Signed By:Savannah Dalton LCSW [facility] CM Progress Note CM Note CM Note Notes: D/W . Pt not ready for dc yet. Notified Ellen woods/Samuel and updated notes sent as requested as they will need to get insurance auth. CM w/f. Date Signed: 12/19/2016 01:18 PM Electronically Signed By:Audra Martinez RN [facility] CM Progress Note CM Note CM Note Notes: Chart reviewed. No pending dc today. Notes updated to [facility]. CM to follow. Date Signed: 12/20/2016 12:02 PM Electronically Signed By:Vy Ashford RN [facility] CM Progress Note CM Note CM Note Notes: Pt ready for DC today. [facility] set up transport for 4:30. Final orders and DC meds faxed. Called pt's dtr Jelena at pt's request to discuss DC. Date Signed: 12/22/2016 12:33 PM Electronically Signed By:Savannah Dalton LCSW Intervention Information Intervention Type:*IM-Signed Date of Service:12/22/2016 02:09 PM Patient Type:Inpatient Staff Member:Jagruti Valenzuela Hours: Discipline: Severity: Comment:
== END 2016-12-22 16:30 | DRG 377 ==
LOC: EDUNIT# → EDBD → F2N 17:52 → F1N 12-08 11:24
PROVIDERS: ADMIT Internal Medicine; ATTEND Internal Medicine
PROC: 30233N1 Transfusion of Nonautologous Red Blood Cells into Peripheral Vein, Percutaneous Approach (ICD-10-PCS; 2016-12-04)
PROC: 02HV33Z Insertion of Infusion Device into Superior Vena Cava, Percutaneous Approach (ICD-10-PCS; 2016-12-05)
PROC: 0DB68ZX Excision of Stomach, Via Natural or Artificial Opening Endoscopic, Diagnostic (ICD-10-PCS; principal; 2016-12-05 09:30)
PROC: 30233R1 Transfusion of Nonautologous Platelets into Peripheral Vein, Percutaneous Approach (ICD-10-PCS; 2016-12-06)
DX: K26.4 Chronic or unspecified duodenal ulcer with hemorrhage (principal); D61.810 Antineoplastic chemotherapy induced pancytopenia; G93.41 Metabolic encephalopathy; D62 Acute posthemorrhagic anemia; G72.0 Drug-induced myopathy; C79.51 Secondary malignant neoplasm of bone; C78.01 Secondary malignant neoplasm of right lung; C78.02 Secondary malignant neoplasm of left lung; T38.0X5A Adverse effect of glucocorticoids and synthetic analogues, initial encounter; T45.1X5A Adverse effect of antineoplastic and immunosuppressive drugs, initial encounter; E78.00 Pure hypercholesterolemia, unspecified; I10 Essential (primary) hypertension; M10.9 Gout, unspecified; N40.1 Benign prostatic hyperplasia with lower urinary tract symptoms; E86.0 Dehydration; K71.2 Toxic liver disease with acute hepatitis; Z85.528 Personal history of other malignant neoplasm of kidney; Z90.5 Acquired absence of kidney; Z85.819 Personal history of malignant neoplasm of unspecified site of lip, oral cavity, and pharynx; Z87.891 Personal history of nicotine dependence; Z23 Encounter for immunization; Z66 Do not resuscitate
CPT/HCPCS: 92526-GN; 92610-GN; 96365; 97110-GO; 97110-GP; 97116-GP; 97161-GP; 97165-GO; 97530-GO; 97530-GP; 97535-GO; C1751; G0008; G8978-GP-CK; G8979-GP-CI; G8979-GP-CJ; G8987-GO-CJ; G8987-GO-CK; G8988-GO-CI; G8988-GO-CJ; G8996-GN-CI; G8997-GN-CI; G8998-GN-CI; J1940; J2704; J2997; P9016; P9021; P9035; P9047